=== PATIENT | male | born 1940 | race Caucasian/White ===

== ENCOUNTER 2017-06-09 16:54 | Inpatient (IN) | payer MEDICARE, BC ==
[2017-06-09] MEDS ORDERED: Sodium Chloride 0.9% 10 ML Syringe FLUSH PRN (17:12)
[2017-06-09] MEDS ORDERED: Albuterol/Ipratropium 3.0-0.5 MG/3 ML Neb Soln NEB ONE ×2 (17:13→18:19)
[2017-06-09] MEDS ORDERED: methylPREDNISolone Sodium Succinate 125 MG/2 ML SDV IVPUSH ONE (17:14)
--- NOTE | 2017-06-09 17:34 | EDM.PDOC ---
ED HPI GENERAL MEDICAL PROBLEM - General Chief Complaint: Chest Pain Stated Complaint: CHEST PAIN Time Seen by Provider: 06/09/17 16:57 Source of Information: Reports: Patient History Limitations: Reports: No Limitations - History of Present Illness INITIAL COMMENTS - FREE TEXT/NARRATIVE: The patient presents with left chest pain and shortness of breath. This started yesterday. Today it is worse. He described the pain as tightness. He also has a cough for 1 week. He has been coughing up yellow sputum. He has no measurable fever but he has chills. He denies nausea, abdominal pain or vomiting. He has a history of COPD. He does not smoke any more. He has had pneumonia before but that was 1 week ago. Onset: Gradual Duration: Day(s): (2) Location: Reports: Chest Quality: Reports: Other (Tightness) Severity: Moderate Improves with: Reports: None Worsens with: Reports: None Associated Symptoms: Reports: Chest Pain, Shortness of Breath. Denies: Fever/ Chills, Nausea/Vomiting Left Chest Pain Score (Numeric/FACES): 7 - Related Data Allergies Allergy/AdvReac Type Severity Reaction Status Date / Time No Known Allergies Allergy Verified 06/09/17 17:05 Home Meds: Home Meds Albuterol [Proventil Neb Soln] 2.5 mg NEB Q6HR PRN 01/27/16 [History] Albuterol/Ipratropium [DuoNeb 3.0-0.5 MG/3 ML] 2.5 mg NEB Q6HR PRN 01/27/16 [ History] Aspirin [Ecotrin] 325 mg PO QPM 01/27/16 [History] Fluticasone/Salmeterol [Advair Diskus 500-50] 1 puff INH BID 01/27/16 [History] Furosemide [Lasix] 40 mg PO DAILY 01/27/16 [History] Gabapentin [Neurontin] 300 mg PO BID 01/27/16 [History] Losartan [Cozaar] 50 mg PO DAILY 01/27/16 [History] Metoprolol Succinate [Toprol XL] 100 mg PO QPM 01/27/16 [History] Multivit-Min/FA/Lycopene/Lut [Centrum Silver Ultra Men's] 1 tab PO DAILY [History] Pravastatin [Pravachol] 40 mg PO DAILY 01/27/16 [History] Psyllium Husk [Metamucil] 1 cap PO BID 01/27/16 [History] Tamsulosin [Flomax] 0.4 mg PO QPM 01/27/16 [History] Tiotropium [Spiriva HandiHaler] 18 mcg INH DAILY 01/27/16 [History] metFORMIN [Glucophage] 1,000 mg PO BID 01/27/16 [History] Past Medical History Cardiovascular History: Reports: CAD, Heart Valve Replacement, High Cholesterol , Hypertension Respiratory History: Reports: COPD, Sleep Apnea Gastrointestinal History: Reports: Other (See Below) Genitourinary History: Reports: BPH, Chronic Renal Insuffiency Musculoskeletal History: Reports: Osteoarthritis Neurological History: Reports: Neuropathy, Peripheral Endocrine/Metabolic History: Reports: Diabetes, Type II, Obesity/BMI 30+ - Past Surgical History HEENT Surgical History: Reports: Cataract Surgery, Eye Surgery Cardiovascular Surgical History: Reports: Carotid Endarterectomy, Valve Replacement Neurological Surgical History: Reports: Lumbar Spine Other Neurological Surgeries/Procedures: Lumbar spine surgery x 3 including spinal fusion 15+ years ago. Musculoskeletal Surgical History: Reports: Knee Replacement Other Musculoskeletal Surgeries/Procedures:: B TKA Social & Family History - Tobacco Use Smoking Status *Q: Never Smoker Years of Tobacco use: 10 Packs/Tins Daily: 2 Used Tobacco, but Quit: Yes Month Tobacco Last Used: Around 1960 - Caffeine Use Caffeine Use: Reports: None - Recreational Drug Use Recreational Drug Use: No - Living Situation & Occupation Living situation: Reports: , with Spouse Occupation: Retired ED ROS GENERAL - Review of Systems Review Of Systems: See Below Constitutional: Reports: No Symptoms HEENT: Reports: No Symptoms Respiratory: Reports: Shortness of Breath, Cough Cardiovascular: Reports: Chest Pain Endocrine: Reports: No Symptoms GI/Abdominal: Reports: No Symptoms : Reports: No Symptoms Musculoskeletal: Reports: No Symptoms Skin: Reports: No Symptoms ED EXAM, GENERAL - Physical Exam Exam: See Below Exam Limited By: No Limitations General Appearance: Alert, No Apparent Distress Ears: Normal External Exam Nose: Normal Inspection Head: Atraumatic, Normocephalic Neck: Normal Inspection Respiratory/Chest: No Respiratory Distress, Decreased Breath Sounds, Wheezing ( Mild) Cardiovascular: Regular Rate, Rhythm, No Edema, No Murmur GI/Abdominal: Soft, Non-Tender, No Organomegaly, No Mass Extremities: Normal Inspection Neurological: Alert, Oriented, No Motor/Sensory Deficits EKG INTERPRETATION EKG Date: 06/09/17 Time: 17:03 Rhythm: NSR Rate (Beats/Min): 90 [place]: Normal P-Wave: Present QRS: Normal ST-T: Normal QT: Normal EKG Interpretation Comments: Multifocal PVCs Course - Vital Signs Last Recorded V/S: Last Vital Signs Temp 98.0 F 06/09/17 17:02 Pulse 94 06/09/17 17:02 Resp 16 06/09/17 17:02 BP 175/91 H 06/09/17 17:02 Pulse Ox 95 06/09/17 18:24 - Orders/Labs/Meds Orders: Active Orders 24 hr Category Date Time Status Cardiac Monitoring [RC] . DIRECTED Care 06/09/17 17:12 Active EKG Documentation Completion [RC] STAT Care 06/09/17 17:12 Active Oxygen Therapy [RC] PRN Care 06/09/17 17:12 Active Peripheral IV Care [RC] . DIRECTED Care 06/09/17 17:13 Active RT Aerosol Therapy [RC] ASDIRECTED Care 06/09/17 17:13 Active RT Aerosol Therapy [RC] ASDIRECTED Care 06/09/17 18:19 Active Chest 2V [CR] Stat Exams 06/09/17 17:13 Taken CULTURE BLOOD [BC] Stat Lab 06/09/17 18:44 Ordered CULTURE BLOOD [BC] Stat Lab 06/09/17 18:44 Ordered INFLUENZA A+B AG SCREEN [RM] Stat Lab 06/09/17 18:47 Uncollected Levofloxacin/Dextrose 5%-Water [Levaquin in D5W 750 MG/ Med 06/09/17 18:44 Active 150 ML] 750 mg Premix Bag 1 bag IV ONETIME Sodium Chloride 0.9% [Saline Flush] Med 06/09/17 17:12 Active 10 ml FLUSH ASDIRECTED PRN Blood Culture x2 Reflex Set [OM.PC] Stat Oth 06/09/17 18:44 Ordered Peripheral IV Insertion Adult [OM.PC] Stat Oth 06/09/17 17:12 Ordered Medication Orders Levofloxacin/Dextrose 750 mg/ (Premix) 150 mls @ 100 mls/hr IV ONETIME ONE Stop: 06/09/17 20:13 Sodium Chloride (Saline Flush) 10 ml FLUSH ASDIRECTED PRN PRN Reason: Keep Vein Open Last Admin: 06/09/17 17:35 Dose: 10 ml Labs: Laboratory Tests 06/09/17 06/09/17 Range/Units 17:02 17:02 WBC 13.89 H (4.23-9.07) K/mm3 RBC 4.00 L (4.63-6.08) M/mm3 Hgb 12.3 L (13.7-17.5) gm/L Hct 36.9 L (40.1-51.0) % MCV 92.3 H (79.0-92.2) fl MCH 30.8 (25.7-32.2) pg MCHC 33.3 (32.2-35.5) g/dl RDW Std Deviation 47.5 H (35.1-43.9) fL Plt Count 349 H (163-337) K/mm3 MPV 9.2 L (9.4-12.3) fl Neut % (Auto) 72.8 H (34.0-67.9) % Lymph % (Auto) 13.5 L (21.8-53.1) % [place] % (Auto) 8.7 (5.3-12.2) % Eos % (Auto) 4.2 (0.8-7.0) Baso % (Auto) 0.3 (0.1-1.2) % Neut # (Auto) 10.11 H (1.78-5.38) K/mm3 Lymph # (Auto) 1.88 (1.32-3.57) K/mm3 [place] # (Auto) 1.21 H (0.30-0.82) K/mm3 Eos # (Auto) 0.58 H (0.04-0.54) K/mm3 Baso # (Auto) 0.04 (0.01-0.08) K/mm3 Sodium 139 (136-145) mEq/L Potassium 3.7 (3.5-5.1) mEq/L Chloride 101 (98-107) mEq/L Carbon Dioxide 30 (21-32) mEq/L Anion Gap 11.7 (5-15) BUN 14 (7-18) mg/dL Creatinine 1.0 (0.7-1.3) mg/dL Est Cr Clr Drug Dosing 59.67 mL/min Estimated GFR (MDRD) > 60 (>60) mL/min BUN/Creatinine Ratio 14.0 (14-18) Glucose 161 H (83-115) mg/dL Calcium 9.1 (8.5-10.1) mg/dL Total Bilirubin 0.3 (0.2-1.0) mg/dL AST 16 (15-37) U/L ALT 22 (16-63) U/L Alkaline Phosphatase 64 (46-116) U/L Troponin I < 0.017 (0.00-0.056) ng/mL Total Protein 7.2 (6.4-8.2) g/dl Albumin 3.0 L (3.4-5.0) g/dl Globulin 4.2 gm/dL Albumin/Globulin Ratio 0.7 L (1-2) Meds: Medications Generic Name Dose Route Start Last Admin Trade Name Freq PRN Reason Stop Dose Admin Levofloxacin/Dextrose 750 mg/ 150 mls @ 100 mls/hr 06/09/17 18:44 Premix IV 06/09/17 20:13 ONETIME ONE Sodium Chloride 10 ml 06/09/17 17:12 06/09/17 17:35 Saline Flush FLUSH 10 ml ASDIRECTED PRN Administration Keep Vein Open Discontinued Medications Generic Name Dose Route Start Last Admin Trade Name Freq PRN Reason Stop Dose Admin Albuterol/Ipratropium 3 ml 06/09/17 17:13 06/09/17 17:37 Duoneb 3.0-0.5 Mg/3 Ml NEB 06/09/17 17:14 3 ml ONETIME ONE Administration Albuterol/Ipratropium 3 ml 06/09/17 18:19 06/09/17 18:24 Duoneb 3.0-0.5 Mg/3 Ml NEB 06/09/17 18:20 3 ml ONETIME ONE Administration Methylprednisolone Sodium Succinate 125 mg 06/09/17 17:14 06/09/17 17:33 Solu-Medrol IVPUSH 06/09/17 17:15 125 mg ONETIME ONE Administration - Re-Assessments/Exams Free Text/Narrative Re-Assessment/Exam: 06/09/17 17:39 I ordered an IV saline lock, oxygen PRN, EKG, CXR, labs, duoneb and solu-medrol 125mg IV. 06/09/17 19:01 I ordered an EKG that shows a NSR with a PVC and no acute changes. His CXR shows COPD changes but no infiltrate. His WBC is elevated at 13.89. His Hgb is 12.3. His CMP is negative. His troponin is negative. His oxygen saturations dropped to 87%. I ordered oxygen and another duoneb. His oxygen came up nicely. I took the oxygen off and his oxygen saturations went down again to 88%. I put the oxygen on and ordered blood cultures and levaquin 750mg IV. Departure - Departure Time of Disposition: 19:10 Disposition: Admitted As Inpatient 68 Condition: Fair Clinical Impression: Hypoxia, COPD exacerbation Pneumonia Qualifiers: Pneumonia type: due to unspecified organism Laterality: unspecified laterality Lung location: unspecified part of lung Qualified Code(s): J18.9 - Pneumonia, unspecified organism Referrals: PCP,None [Primary Care Provider] - Forms: ED Department Discharge - My Orders Last 24 Hours: My Active Orders 06/09/17 17:12 Cardiac Monitoring [RC] . DIRECTED EKG Documentation Completion [RC] STAT Oxygen Therapy [RC] PRN Sodium Chloride 0.9% [Saline Flush] 10 ml FLUSH ASDIRECTED PRN Peripheral IV Insertion Adult [OM.PC] Stat 06/09/17 17:13 Peripheral IV Care [RC] . DIRECTED RT Aerosol Therapy [RC] ASDIRECTED Chest 2V [CR] Stat 06/09/17 18:19 RT Aerosol Therapy [RC] ASDIRECTED 06/09/17 18:44 CULTURE BLOOD [BC] Stat CULTURE BLOOD [BC] Stat Levofloxacin/Dextrose 5%-Water [Levaquin in D5W 750 MG/150 ML] 750 mg Premix Bag 1 bag IV ONETIME Blood Culture x2 Reflex Set [OM.PC] Stat 06/09/17 18:47 INFLUENZA A+B AG SCREEN [RM] Stat - Assessment/Plan Last 24 Hours: My Active Orders 06/09/17 17:12 Cardiac Monitoring [RC] . DIRECTED EKG Documentation Completion [RC] STAT Oxygen Therapy [RC] PRN Sodium Chloride 0.9% [Saline Flush] 10 ml FLUSH ASDIRECTED PRN Peripheral IV Insertion Adult [OM.PC] Stat 06/09/17 17:13 Peripheral IV Care [RC] . DIRECTED RT Aerosol Therapy [RC] ASDIRECTED Chest 2V [CR] Stat 06/09/17 18:19 RT Aerosol Therapy [RC] ASDIRECTED 06/09/17 18:44 CULTURE BLOOD [BC] Stat CULTURE BLOOD [BC] Stat Levofloxacin/Dextrose 5%-Water [Levaquin in D5W 750 MG/150 ML] 750 mg Premix Bag 1 bag IV ONETIME Blood Culture x2 Reflex Set [OM.PC] Stat 06/09/17 18:47 INFLUENZA A+B AG SCREEN [RM] Stat
[2017-06-09] MEDS ORDERED: Levofloxacin/Dextrose 5%-Water 750 MG in Premix Bag 1 BAG IV ONE (18:44)
--- NOTE | 2017-06-09 19:41 | PCM.HP ---
H&P History of Present Illness - General Date of Service: 06/09/17 Source of Information: Patient, Provider History Limitations: Reports: No Limitations - History of Present Illness Onset of Symptoms: Reports: Gradual Symptom Onset Date: 06/07/17 Duration of Symptoms: Reports: Day(s):, Getting Worse Location: Reports: Chest Quality: Reports: Same as Previous Episode Severity: Moderate Improves with: Reports: Medication Worsens with: Reports: None Associated Symptoms: Reports: cough w sputum, Fever/Chills, Shortness of Breath Left Chest Pain Score (Numeric/FACES): 7 Neck Pain Score (Numeric/FACES): 5 - Related Data Allergies/Adverse Reactions: Allergies Allergy/AdvReac Type Severity Reaction Status Date / Time No Known Allergies Allergy Verified 06/09/17 19:44 Home Medications: Home Meds Albuterol [Proventil Neb Soln] 2.5 mg NEB Q6HR PRN 01/27/16 [History] Albuterol/Ipratropium [DuoNeb 3.0-0.5 MG/3 ML] 2.5 mg NEB Q6HR PRN 01/27/16 [ History] Aspirin [Ecotrin] 325 mg PO QPM 01/27/16 [History] Fluticasone/Salmeterol [Advair Diskus 500-50] 1 puff INH BID 01/27/16 [History] Furosemide [Lasix] 40 mg PO DAILY 01/27/16 [History] Gabapentin [Neurontin] 300 mg PO BID 01/27/16 [History] Losartan [Cozaar] 50 mg PO DAILY 01/27/16 [History] Metoprolol Succinate [Toprol XL] 100 mg PO QPM 01/27/16 [History] Multivit-Min/FA/Lycopene/Lut [Centrum Silver Ultra Men's] 1 tab PO DAILY [History] Pravastatin [Pravachol] 40 mg PO DAILY 01/27/16 [History] Psyllium Husk [Metamucil] 1 cap PO BID 01/27/16 [History] Tamsulosin [Flomax] 0.4 mg PO QPM 01/27/16 [History] Tiotropium [Spiriva HandiHaler] 18 mcg INH DAILY 01/27/16 [History] metFORMIN [Glucophage] 1,000 mg PO BID 01/27/16 [History] Levofloxacin [Levaquin] 750 mg PO DAILY 8 Days #8 tablet 06/11/17 [Rx] predniSONE See Taper PO .TAPER #20 tablet 06/11/17 [Rx] Past Medical History Cardiovascular History: Reports: CAD, Heart Valve Replacement, High Cholesterol , Hypertension Respiratory History: Reports: COPD, Sleep Apnea Gastrointestinal History: Reports: Other (See Below) Genitourinary History: Reports: BPH, Chronic Renal Insuffiency Musculoskeletal History: Reports: Osteoarthritis Neurological History: Reports: Neuropathy, Peripheral Endocrine/Metabolic History: Reports: Diabetes, Type II, Obesity/BMI 30+ - Past Surgical History HEENT Surgical History: Reports: Cataract Surgery, Eye Surgery Cardiovascular Surgical History: Reports: Carotid Endarterectomy, Valve Replacement Neurological Surgical History: Reports: Lumbar Spine Other Neurological Surgeries/Procedures: Lumbar spine surgery x 3 including spinal fusion 15+ years ago. Musculoskeletal Surgical History: Reports: Knee Replacement Other Musculoskeletal Surgeries/Procedures:: B TKA Social & Family History - Tobacco Use Smoking Status *Q: Never Smoker Years of Tobacco use: 10 Packs/Tins Daily: 2 Used Tobacco, but Quit: Yes Month Tobacco Last Used: Around 1959 - Caffeine Use Caffeine Use: Reports: None - Recreational Drug Use Recreational Drug Use: No - Living Situation & Occupation Living situation: Reports: , with Spouse Occupation: Retired H&P Review of Systems - Review of Systems: Review Of Systems: See Below General: Reports: Fever, Weakness, Fatigue HEENT: Reports: No Symptoms Pulmonary: Reports: Pleuritic Chest Pain, Cough, Sputum Cardiovascular: Reports: No Symptoms Gastrointestinal: Reports: No Symptoms Genitourinary: Reports: No Symptoms Musculoskeletal: Reports: No Symptoms Skin: Reports: No Symptoms Psychiatric: Reports: No Symptoms Neurological: Reports: No Symptoms Hematologic/Lymphatic: Reports: No Symptoms Immunologic: Reports: No Symptoms Exam - Exam Exam: See Below - Vital Signs Vital Signs: Last Vital Signs Temp 36.7 C 06/09/17 17:02 Pulse 94 06/09/17 17:02 Resp 16 06/09/17 17:02 BP 175/91 H 06/09/17 17:02 Pulse Ox 95 06/09/17 18:24 Weight: 103.419 kg - Exam Quality Assessment: DVT Prophylaxis General: Alert, Oriented, Cooperative HEENT: Conjunctiva Clear, Nares Patent, Normal Nasal Septum, Pupils Equal, Pupils Reactive, PERRLA Neck: Supple, Trachea Midline Lungs: Normal Respiratory Effort, Decreased Breath Sounds, Wheezing Cardiovascular: Regular Rate, Tachycardia GI/Abdominal Exam: Normal Bowel Sounds, Soft, Non-Tender, No Organomegaly, No Distention (Male) Exam: Deferred Rectal (Males) Exam: Deferred Back Exam: Normal Inspection Extremities: Normal Inspection Skin: Warm Neurological: Cranial Nerves Intact, Normal Speech Neuro Extensive - Mental Status: Alert, Oriented x3 Neuro Extensive - Motor, Sensory, Reflexes: CN II-XII Intact Psychiatric: Alert, Normal Affect, Normal Mood - Patient Data Result Diagrams: 06/11/17 05:45 06/11/17 05:45 *Q Meaningful Use (ADM) - VTE *Q VTE Criteria *Q: - Stroke *Q Stroke Criteria *Q: - AMI *Q AMI Criteria *Q: - Problem List (1) COPD exacerbation SNOMED Code(s): 711166370605593 ICD Code: J44.1 - CHRONIC OBSTRUCTIVE PULMONARY DISEASE W (ACUTE) EXACERBATION Status: Acute Priority: High (2) Pneumonia SNOMED Code(s): 296349847 ICD Code: J18.9 - PNEUMONIA, UNSPECIFIED ORGANISM Status: Acute Priority : Medium Qualifiers: Pneumonia type: due to unspecified organism Laterality: unspecified laterality Lung location: unspecified part of lung Qualified Code(s): J18.9 - Pneumonia, unspecified organism (3) Venous insufficiency of both lower extremities SNOMED Code(s): 337547630 ICD Code: I87.2 - VENOUS INSUFFICIENCY (CHRONIC) (PERIPHERAL) Status: Acute (4) Hypoxia SNOMED Code(s): 594356561 ICD Code: R09.02 - HYPOXEMIA Status: Resolved Priority: High Problem List Initiated/Reviewed/Updated: Yes Orders Last 24hrs: Medication Orders Levofloxacin/Dextrose 750 mg/ (Premix) 150 mls @ 100 mls/hr IV ONETIME ONE Stop: 06/09/17 20:13 Last Admin: 06/09/17 19:14 Dose: 100 mls/hr Sodium Chloride (Saline Flush) 10 ml FLUSH ASDIRECTED PRN PRN Reason: Keep Vein Open Last Admin: 06/09/17 17:35 Dose: 10 ml Assessment/Plan Comment:: Impression: COPD exacerbation, hypoxia URI with productive cough of yellow sputum Chronic MAYR CAD Valvular Heart Disease HLD HTN Diabetes mellitus type 2 CKD Obesity PVD/SAULO Plan: IV steroids Continue Levoquin Nebs Home meds Daily labs Complete infectious work up DVT/GI prophylaxis
[2017-06-09] MEDS ORDERED: 50% Dextrose in Water 50 ML Syringe IVPUSH PRN (19:48)
[2017-06-09] MEDS ORDERED: Albuterol 0.083% 2.5 MG/3 ML Neb Soln NEB PRN (19:54)
[2017-06-09] MEDS ORDERED: Acetaminophen Soln 650 MG/20.3 ML UD Cup PO PRN (19:54)
[2017-06-09] MEDS ORDERED: Sodium Chloride 0.45% 1,000 ML IV SCH (20:30)
[2017-06-09] MEDS ORDERED: hydrALAZINE 20 MG/ML SDV IVPUSH PRN (20:37)
[2017-06-09] MEDS ORDERED: PSYLLIUM HUSK PO SCH (21:00)
[2017-06-09] MEDS: Tiotropium Inhaler 18 MCG Inhalation Powder Cap Kit of 5 INH SCH (21:02)
[2017-06-09] MEDS: Gabapentin 300 MG Cap PO SCH (21:55)
[2017-06-09] MEDS: metFORMIN 500 MG Tab PO SCH (21:55)
[2017-06-09] MEDS: Losartan 25 MG Tab PO SCH (21:55)
[2017-06-09] MEDS: Famotidine 20 MG Tab PO SCH (21:56)
[2017-06-09] MEDS: Insulin Aspart 100 Units/ML 3 ML Pen SUBCUT SCH (22:18)
[2017-06-10] MEDS: methylPREDNISolone Sodium Succinate 125 MG/2 ML SDV IVPUSH SCH ×4 (00:51→17:11)
[2017-06-10] MEDS: Acetaminophen 325 MG Tab PO PRN ×2 (02:15→09:30)
[2017-06-10] MEDS: metFORMIN 500 MG Tab PO SCH ×2 (06:30→16:42)
[2017-06-10] MEDS: Albuterol/Ipratropium 3.0-0.5 MG/3 ML Neb Soln NEB PRN ×2 (06:55→13:36)
[2017-06-10] MEDS: Tiotropium Inhaler 18 MCG Inhalation Powder Cap Kit of 5 INH SCH ×2 (06:55→09:38)
[2017-06-10] MEDS: Insulin Aspart 100 Units/ML 3 ML Pen SUBCUT SCH ×4 (09:19→21:37)
[2017-06-10] MEDS: Psyllium Husk Powder Sugar Free 3.4 GM Packet PO SCH ×2 (09:20→21:37)
[2017-06-10] MEDS: Furosemide 40 MG Tab PO SCH (09:20)
[2017-06-10] MEDS: Gabapentin 300 MG Cap PO SCH ×2 (09:20→21:36)
[2017-06-10] MEDS: Losartan 25 MG Tab PO SCH ×2 (09:20→21:35)
[2017-06-10] MEDS: Enoxaparin 40 MG/0.4 ML Syringe SUBCUT SCH (09:21)
--- NOTE | 2017-06-10 09:50 | CR ---
Chest: Two views of the chest were obtained. Comparison: Prior chest x-ray of 01/27/16. Heart size and mediastinum are normal. Mild chronic pulmonary vascular congestion is seen. These findings are fairly stable from prior exam. Lungs otherwise are clear. Bony structures are unremarkable for the patient's age. Previous sternotomy and prosthetic heart valve is seen. Impression: 1. Increased central lung markings most likely representing mild chronic pulmonary vascular congestion. 2. Previous heart valve replacement. 3. Nothing acute is otherwise seen. Diagnostic code #3
[2017-06-10] MEDS ORDERED: Formoterol/Mometasone 200-5 MCG 8.8 GM Inhaler IH SCH (10:15)
[2017-06-10] MEDS: Non-Formulary Medication 1 Each (Fluticasone/Salmeterol 1 PUFF) INH SCH (11:07)
[2017-06-10] MEDS: Levofloxacin/Dextrose 5%-Water 750 MG in Premix Bag 1 BAG IV SCH (13:36)
[2017-06-10] MEDS ORDERED: Aspirin 325 MG Tab.EC PO SCH (18:00)
[2017-06-10] MEDS ORDERED: Metoprolol Succinate 50 MG Tab.ER PO SCH (18:00)
[2017-06-10] MEDS ORDERED: Tamsulosin 0.4 MG Cap.ER PO SCH (18:00)
--- NOTE | 2017-06-10 20:28 | PCM.PN ---
- General Info Date of Service: 06/10/17 Functional Status: Reports: Tolerating Diet, Ambulating, Urinating - Review of Systems General: Reports: No Symptoms HEENT: Reports: No Symptoms Pulmonary: Reports: Shortness of Breath Cardiovascular: Reports: No Symptoms Gastrointestinal: Reports: No Symptoms Genitourinary: Reports: No Symptoms Musculoskeletal: Reports: No Symptoms Skin: Reports: No Symptoms Neurological: Reports: No Symptoms Psychiatric: Reports: No Symptoms - Patient Data Vitals - Most Recent: Last Vital Signs Temp 36.8 C 06/10/17 15:55 Pulse 99 06/10/17 17:13 Resp 19 06/10/17 15:55 BP 149/71 H 06/10/17 17:13 Pulse Ox 91 L 06/10/17 15:55 Weight - Most Recent: 105.732 kg I&O - Last 24 Hours: Intake & Output 06/10/17 06/10/17 06/10/17 06:59 14:59 22:59 Intake Total 1550 300 890 Output Total 1450 Balance 1550 300 -560 Lab Results Last 24 Hours: Laboratory Results - last 24 hr 06/09/17 06/10/17 06/10/17 Range/Units 21:39 05:40 05:40 WBC (4.23-9.07) K/mm3 RBC (4.63-6.08) M/mm3 Hgb (13.7-17.5) gm/L Hct (40.1-51.0) % MCV (79.0-92.2) fl MCH (25.7-32.2) pg MCHC (32.2-35.5) g/dl RDW Std Deviation (35.1-43.9) fL Plt Count (163-337) K/mm3 MPV (9.4-12.3) fl Neut % (Auto) (34.0-67.9) % Lymph % (Auto) (21.8-53.1) % [place] % (Auto) (5.3-12.2) % Eos % (Auto) (0.8-7.0) Baso % (Auto) (0.1-1.2) % Neut # (Auto) (1.78-5.38) K/mm3 Lymph # (Auto) (1.32-3.57) K/mm3 [place] # (Auto) (0.30-0.82) K/mm3 Eos # (Auto) (0.04-0.54) K/mm3 Baso # (Auto) (0.01-0.08) K/mm3 Manual Slide Review Sodium 136 (136-145) mEq/L Potassium 4.4 (3.5-5.1) mEq/L Chloride 99 (98-107) mEq/L Carbon Dioxide 27 (21-32) mEq/L Anion Gap 14.4 (5-15) BUN 18 (7-18) mg/dL Creatinine 1.0 (0.7-1.3) mg/dL Est Cr Clr Drug Dosing 59.67 mL/min Estimated GFR (MDRD) > 60 (>60) mL/min BUN/Creatinine Ratio 18.0 (14-18) Glucose 210 H (83-115) mg/dL POC Glucose 254 H (83-110) mg/dL Hemoglobin A1c 7.50 H (4.50-6.20) % Calcium 8.9 (8.5-10.1) mg/dL C-Reactive Protein 6.7 H* (<1.0) mg/dL Triglycerides 49 (<150) mg/dL Cholesterol 143 (<200) mg/dL LDL Cholesterol Direct 87 (<100) mg/dL HDL Cholesterol 48.0 (40-59) mg/dL Mycoplasma pneumon IgM Negative (NEGATIVE) 06/10/17 06/10/17 06/10/17 Range/Units 05:40 06:14 11:23 WBC 11.83 H (4.23-9.07) K/mm3 RBC 3.88 L (4.63-6.08) M/mm3 Hgb 11.9 L (13.7-17.5) gm/L Hct 35.9 L (40.1-51.0) % MCV 92.5 H (79.0-92.2) fl MCH 30.7 (25.7-32.2) pg MCHC 33.1 (32.2-35.5) g/dl RDW Std Deviation 46.6 H (35.1-43.9) fL Plt Count 319 (163-337) K/mm3 MPV 9.5 (9.4-12.3) fl Neut % (Auto) 91.5 H (34.0-67.9) % Lymph % (Auto) 6.4 L (21.8-53.1) % [place] % (Auto) 1.2 L (5.3-12.2) % Eos % (Auto) 0 L (0.8-7.0) Baso % (Auto) 0.1 (0.1-1.2) % Neut # (Auto) 10.83 H (1.78-5.38) K/mm3 Lymph # (Auto) 0.76 L (1.32-3.57) K/mm3 [place] # (Auto) 0.14 L (0.30-0.82) K/mm3 Eos # (Auto) 0.00 L (0.04-0.54) K/mm3 Baso # (Auto) 0.01 (0.01-0.08) K/mm3 Manual Slide Review Abnormal smear Sodium (136-145) mEq/L Potassium (3.5-5.1) mEq/L Chloride (98-107) mEq/L Carbon Dioxide (21-32) mEq/L Anion Gap (5-15) BUN (7-18) mg/dL Creatinine (0.7-1.3) mg/dL Est Cr Clr Drug Dosing mL/min Estimated GFR (MDRD) (>60) mL/min BUN/Creatinine Ratio (14-18) Glucose (83-115) mg/dL POC Glucose 205 H 235 H (83-110) mg/dL Hemoglobin A1c (4.50-6.20) % Calcium (8.5-10.1) mg/dL C-Reactive Protein (<1.0) mg/dL Triglycerides (<150) mg/dL Cholesterol (<200) mg/dL LDL Cholesterol Direct (<100) mg/dL HDL Cholesterol (40-59) mg/dL Mycoplasma pneumon IgM (NEGATIVE) Jermain Results Last 24 Hours: Microbiology 06/09/17 19:31 Aerobic Blood Culture - Preliminary Blood - Venous - Lab Draw NO GROWTH AFTER 1 DAY Anaerobic Blood Culture - Preliminary NO GROWTH AFTER 1 DAY 06/09/17 19:25 Aerobic Blood Culture - Preliminary Blood - Venous NO GROWTH AFTER 1 DAY Anaerobic Blood Culture - Preliminary NO GROWTH AFTER 1 DAY Med Orders - Current: Current Medications Acetaminophen (Tylenol) 650 mg PO Q4H PRN PRN Reason: Pain/Fever Last Admin: 06/10/17 09:30 Dose: 650 mg Albuterol (Proventil Neb Soln) 2.5 mg NEB Q4HRRT PRN PRN Reason: Shortness of Breath Albuterol/Ipratropium (Duoneb 3.0-0.5 Mg/3 Ml) 3 ml NEB QID PRN PRN Reason: Shortness of Breath Last Admin: 06/10/17 13:36 Dose: 3 ml Aspirin (Ecotrin) 325 mg PO QPM [facility] Last Admin: 06/10/17 17:13 Dose: 325 mg Dextrose/Water (Dextrose 50% In Water) 50 ml IVPUSH ASDIRECTED PRN PRN Reason: Hypoglycemia Enoxaparin Sodium (Lovenox) 40 mg SUBCUT DAILY [facility] Last Admin: 06/10/17 09:21 Dose: 40 mg Famotidine (Pepcid) 20 mg PO BEDTIME [facility] Last Admin: 06/09/17 21:56 Dose: 20 mg Furosemide (Lasix) 40 mg PO DAILY [facility] Last Admin: 06/10/17 09:20 Dose: 40 mg Gabapentin (Neurontin) 300 mg PO BID [facility] Last Admin: 06/10/17 09:20 Dose: 300 mg Hydralazine HCl (Apresoline) 20 mg IVPUSH Q6H PRN PRN Reason: Hypertension Last Admin: 06/10/17 06:37 Dose: 20 mg Levofloxacin/Dextrose 750 mg/ (Premix) 150 mls @ 100 mls/hr IV Q24H [facility] Last Admin: 06/10/17 13:36 Dose: 100 mls/hr Insulin Aspart (Novolog) 0 unit SUBCUT QIDACANDBED NEHAL PRN Reason: Protocol Last Admin: 06/10/17 17:12 Dose: 3 units Losartan Potassium (Cozaar) 25 mg PO BID [facility] Last Admin: 06/10/17 09:20 Dose: 25 mg Metformin HCl (Glucophage) 1,000 mg PO BIDMEALS [facility] Last Admin: 06/10/17 16:42 Dose: 1,000 mg Methylprednisolone Sodium Succinate (Solu-Medrol) 125 mg IVPUSH Q6H [facility] Last Admin: 06/10/17 17:11 Dose: 125 mg Metoprolol Succinate (Toprol Xl) 100 mg PO QPM [facility] Last Admin: 06/10/17 17:13 Dose: 100 mg Mometasone Furoate/Formoterol Fumar (Dulera 200-5 Mcg) 2 puff IH BID [facility] Psyllium Husk (Metamucil Sugar Free) 1 packet PO BID [facility] Last Admin: 06/10/17 09:20 Dose: 1 packet Simvastatin (Zocor) 20 mg PO BEDTIME [facility] Sodium Chloride (Saline Flush) 10 ml FLUSH ASDIRECTED PRN PRN Reason: Keep Vein Open Last Admin: 06/09/17 17:35 Dose: 10 ml Tamsulosin HCl (Flomax) 0.4 mg PO QPM [facility] Last Admin: 06/10/17 17:13 Dose: 0.4 mg Tiotropium [place] (Spiriva Handihaler) 18 mcg INH DAILY [facility] Last Admin: 06/10/17 09:38 Dose: Not Given Discontinued Medications Acetaminophen (Tylenol) 650 mg PO Q6H PRN PRN Reason: Fever Albuterol/Ipratropium (Duoneb 3.0-0.5 Mg/3 Ml) 3 ml NEB ONETIME ONE Stop: 06/09/17 17:14 Last Admin: 06/09/17 17:37 Dose: 3 ml Albuterol/Ipratropium (Duoneb 3.0-0.5 Mg/3 Ml) 3 ml NEB ONETIME ONE Stop: 06/09/17 18:20 Last Admin: 06/09/17 18:24 Dose: 3 ml Levofloxacin/Dextrose 750 mg/ (Premix) 150 mls @ 100 mls/hr IV ONETIME ONE Stop: 06/09/17 20:13 Last Admin: 06/09/17 19:14 Dose: 100 mls/hr Sodium Chloride (Sodium Chloride 0.45%) 1,000 mls @ 125 mls/hr IV ASDIRECTED [facility] Last Admin: 06/09/17 22:18 Dose: 125 mls/hr Methylprednisolone Sodium Succinate (Solu-Medrol) 125 mg IVPUSH ONETIME ONE Stop: 06/09/17 17:15 Last Admin: 06/09/17 17:33 Dose: 125 mg Mometasone Furoate/Formoterol Fumar (Dulera 200-5 Mcg) 2 puff IH BIDRT [facility] Last Admin: 06/10/17 11:44 Dose: Not Given Non-Formulary Medication (Fluticasone/Salmeterol) 1 puff INH BID [facility] Last Admin: 06/10/17 11:07 Dose: Not Given Non-Formulary Medication (Psyllium Husk) 1 cap PO BID [facility] - Exam Quality Assessment: Supplemental Oxygen, DVT Prophylaxis General: Alert, Oriented, Cooperative, No Acute Distress HEENT: Pupils Equal, Pupils Reactive, EOMI Neck: Supple, Trachea Midline, No JVD Lungs: Normal Respiratory Effort, Decreased Breath Sounds, Wheezing (no) Cardiovascular: Regular Rate, Regular Rhythm GI/Abdominal Exam: Normal Bowel Sounds, Soft, Non-Tender, No Organomegaly, No Distention (Male) Exam: Deferred Back Exam: Normal Inspection Extremities: Normal Inspection Skin: Warm Neurological: No New Focal Deficit, Normal Gait, Normal Speech Psy/Mental Status: Alert, Normal Affect, Normal Mood - Problem List Review Problem List Initiated/Reviewed/Updated: Yes - My Orders Last 24 Hours: My Active Orders 06/09/17 19:48 Blood Glucose Check, Bedside [RC] QIDACANDBED Dextrose 50% in Water 50 ml IVPUSH ASDIRECTED PRN 06/09/17 19:53 RT Aerosol Therapy [RC] ASDIRECTED Albuterol/Ipratropium [DuoNeb 3.0-0.5 MG/3 ML] 3 ml NEB QID PRN 06/09/17 19:54 Albuterol [Proventil Neb Soln] 2.5 mg NEB Q4HRRT PRN 06/09/17 19:57 Antiembolic Devices [RC] BID ZENIA Hose [Antiembolic Hose] [OM.PC] Routine 06/09/17 19:58 Consult to Occupational Therapy [OT Evaluation and Treatment] [CONS] Routine Consult to Physical Therapy [PT Evaluation and Treatment] [CONS] Routine Consult to Site Interpreter [CONS] Routine 06/09/17 20:00 metFORMIN [Glucophage] 1,000 mg PO BIDMEALS 06/09/17 20:37 hydrALAZINE [Apresoline] 20 mg IVPUSH Q6H PRN 06/09/17 21:00 Famotidine [Pepcid] 20 mg PO BEDTIME Gabapentin [Neurontin] 300 mg PO BID Losartan [Cozaar] 25 mg PO BID Tiotropium [Spiriva HandiHaler] 18 mcg INH DAILY 06/09/17 21:37 RESPIRATORY PANEL BY PCR [MREF] Routine 06/09/17 22:00 Insulin Aspart [NovoLOG] See Protocol SUBCUT QIDACANDBED 06/10/17 00:00 methylPREDNISolone Sod Succ [Solu-MEDROL] 125 mg IVPUSH Q6H 06/10/17 02:07 Acetaminophen [Tylenol] 650 mg PO Q4H PRN 06/10/17 02:23 K Pad [Heat Therapy] [OM.PC] Routine 06/10/17 09:00 Consult to Soda Room Operator [Consult to Diabetic Nurse Specialist] [CONS] Routine Enoxaparin [Lovenox] 40 mg SUBCUT DAILY Furosemide [Lasix] 40 mg PO DAILY Psyllium Husk/Aspartame [Metamucil Sugar Free] 1 packet PO BID 06/10/17 13:00 Levofloxacin/Dextrose 5%-Water [Levaquin in D5W 750 MG/150 ML] 750 mg Premix Bag 1 bag IV Q24H 06/10/17 18:00 Aspirin [Ecotrin] 325 mg PO QPM Metoprolol Succinate [Toprol XL] 100 mg PO QPM Tamsulosin [Flomax] 0.4 mg PO QPM 06/10/17 21:00 Simvastatin [Zocor] 20 mg PO BEDTIME 06/11/17 05:00 BMP [BASIC METABOLIC PANEL,BMP] [CHEM] DAILY CBC WITH AUTO DIFF [HEME] DAILY CRP [C-REACTIVE PROTEIN] [CHEM] DAILY 06/12/17 05:00 BMP [BASIC METABOLIC PANEL,BMP] [CHEM] DAILY CBC WITH AUTO DIFF [HEME] DAILY CRP [C-REACTIVE PROTEIN] [CHEM] DAILY 06/13/17 05:00 BMP [BASIC METABOLIC PANEL,BMP] [CHEM] DAILY CBC WITH AUTO DIFF [HEME] DAILY CRP [C-REACTIVE PROTEIN] [CHEM] DAILY 06/14/17 05:00 BMP [BASIC METABOLIC PANEL,BMP] [CHEM] DAILY CBC WITH AUTO DIFF [HEME] DAILY CRP [C-REACTIVE PROTEIN] [CHEM] DAILY - Plan Plan:: Impression: COPD exacerbation, hypoxia URI with productive cough of yellow sputum Chronic MARY CAD Valvular Heart Disease HLD HTN Diabetes mellitus type 2 CKD Obesity PVD/SAULO Plan: IV steroids, taper as tolerated Taper off O2 Continue Levoquin Nebs Home meds Daily labs Complete infectious work up DVT/GI prophylaxis
[2017-06-10] MEDS: Formoterol/Mometasone 200-5 MCG 8.8 GM Inhaler IH SCH (20:37)
[2017-06-10] MEDS ORDERED: Simvastatin 20 MG Tab PO SCH (21:00)
[2017-06-10] MEDS ORDERED: traZODone 50 MG Tab PO PRN (21:17)
[2017-06-10] MEDS: Famotidine 20 MG Tab PO SCH (21:36)
[2017-06-11] MEDS: methylPREDNISolone Sodium Succinate 125 MG/2 ML SDV IVPUSH SCH ×3 (00:52→12:24)
[2017-06-11] MEDS: Acetaminophen 325 MG Tab PO PRN (00:52)
[2017-06-11] MEDS: metFORMIN 500 MG Tab PO SCH (06:55)
--- NOTE | 2017-06-11 07:21 | PCM.DCSUM1 ---
Discharge Summary - Hospital Course Free Text/Narrative:: Dat Rosado is a 77 yo male who presented to our ED on 06/09/17 with left chest pain and shortness of breath. He reportedly started the day before and has been worsening. Described as a tightness. Also reports cough for past one week. Has been coughing up yellow sputum. Has been afebrile but has had chills. Denies nausea, abdominal pain, vomiting. Has history of COPD. Is a former smoker. Had pneumonia 1 week prior. 12-lead EKG was obtained showing a normal sinus rhythm at a rate of 90. Multifocal PVCs were noted per the ED report. Temp is 98.0. Pulse 94. Respirations 16. Blood pressure elevated at 175/91. Pulse ox 95%. Chest x- ray was obtained. This is interpreted by Dr. Guzmán, radiologist, as 1. Increased central lung markings most likely representing mild chronic ulnar vascular congestion. 2. Previous heart valve replacement. 3. Nothing acute is otherwise seen. Labs were obtained: The BC was elevated at 13.9. Hemoglobin was low at 12.3. Hematocrit low at 36.9. He was very slightly macrocytic. Platelet count was elevated at 349,000. Neutrophils were elevated at 72.8%. Electrolytes were essentially unremarkable. Creatinine 1.0. GFR greater than 60. Glucose was elevated at 161. Liver enzymes were good with AST at 16, ALT at 22, alkaline phosphatase at 67. Troponin was negative at less than 0.017. Albumin was low at 3.0. Levaquin 750 mg was given. DuoNeb and Solu-Medrol 125 mg IV were also given. He was attempted to be weaned off oxygen however his sats dropped to 87%. His subsequent admitted to the medical floor. He is a full code. - Discharge Data Discharge Date: 06/11/17 (Admit date: 06/09/17) Discharge Disposition: Home, Self-Care 01 Condition: Good - Discharge Diagnosis/Problem(s) (1) COPD exacerbation SNOMED Code(s): 936703182541967 ICD Code: J44.1 - CHRONIC OBSTRUCTIVE PULMONARY DISEASE W (ACUTE) EXACERBATION Status: Acute Priority: High Current Visit: Yes (2) Hypoxia SNOMED Code(s): 241249748 ICD Code: R09.02 - HYPOXEMIA Status: Resolved Priority: High Current Visit: Yes (3) Pneumonia SNOMED Code(s): 338728239 ICD Code: J18.9 - PNEUMONIA, UNSPECIFIED ORGANISM Status: Acute Priority : Medium Current Visit: Yes Qualifiers: Pneumonia type: due to unspecified organism Laterality: unspecified laterality Lung location: unspecified part of lung Qualified Code(s): J18.9 - Pneumonia, unspecified organism - Patient Summary/Data Consults: Consultations 06/09/17 19:58 Consult to Occupational Therapy [OT Evaluation and Treatment] [CONS] Routine Consult to Physical Therapy [PT Evaluation and Treatment] [CONS] Routine Consult to Gas Singer [CONS] Routine 06/10/17 09:00 Consult to Top Frame Maker [Consult to Diabetic Nurse Specialist] [CONS] Routine Hospital Course: Hospital course relatively uneventful. Levaquin was continued, as well as methylprednisone. Lipid panel looked excellent. A1c was only slightly elevated. CRP trended downward and mycoplasma pneumonia and was negative. His white count did increase however, this is likely due to steroid administration. Blood sugars were slightly elevated as well, and this is also likely the result of steroids. He is doing much better today. He was weaned off of O2. He is eating, urinating, and ambulating. He will be discharged home today. He normally see [facility] in [place] for Cardiology and Pulmonary. We discussed establishing a PCP here in town at [place]. Case Management was able to establish an appointment with Dr. Nick. He is to follow-up and establish with a Dr. Nick at his established appointment. He will be discharged home today on PO leviquin and a steroid taper. His usual home medications were continued. - Patient Instructions Diet: Diabetic Diet Activity: As Tolerated Driving: Do Not Drive (today) Showering/Bathing: May Shower Notify Provider of: Fever, Increased Pain, Nausea and/or Vomiting (chest pain, worsening shortness of breath ) - Discharge Plan Prescriptions/Med Rec: Levofloxacin [Levaquin] 750 mg PO DAILY 8 Days #8 tablet predniSONE See Taper PO .TAPER #20 tablet Home Medications: Home Meds Albuterol [Proventil Neb Soln] 2.5 mg NEB Q6HR PRN 01/27/16 [History] Albuterol/Ipratropium [DuoNeb 3.0-0.5 MG/3 ML] 2.5 mg NEB Q6HR PRN 01/27/16 [ History] Aspirin [Ecotrin] 325 mg PO QPM 01/27/16 [History] Fluticasone/Salmeterol [Advair Diskus 500-50] 1 puff INH BID 01/27/16 [History] Furosemide [Lasix] 40 mg PO DAILY 01/27/16 [History] Gabapentin [Neurontin] 300 mg PO BID 01/27/16 [History] Losartan [Cozaar] 50 mg PO DAILY 01/27/16 [History] Metoprolol Succinate [Toprol XL] 100 mg PO QPM 01/27/16 [History] Multivit-Min/FA/Lycopene/Lut [Centrum Silver Ultra Men's] 1 tab PO DAILY [History] Pravastatin [Pravachol] 40 mg PO DAILY 01/27/16 [History] Psyllium Husk [Metamucil] 1 cap PO BID 01/27/16 [History] Tamsulosin [Flomax] 0.4 mg PO QPM 01/27/16 [History] Tiotropium [Spiriva HandiHaler] 18 mcg INH DAILY 01/27/16 [History] metFORMIN [Glucophage] 1,000 mg PO BID 01/27/16 [History] Levofloxacin [Levaquin] 750 mg PO DAILY 8 Days #8 tablet 06/11/17 [Rx] predniSONE See Taper PO .TAPER #20 tablet 06/11/17 [Rx] Patient Handouts: Coronary Artery Disease, Male, Chronic Obstructive Pulmonary Disease Exacerbation, Soky-ox-[place]ur, Type 2 Diabetes Mellitus, Adult, Hypoxemia, Aspirin, ASA oral tablets Forms: ED Department Discharge Referrals: Rupert Hoover DO [Ordering Only Provider] - (keep previously scheduled appointment) Andrew Nick MD [Physician] - 06/22/17 1:00 pm (at [facility] come 15 mnutes prior to the appointment time.) - Discharge Summary/Plan Comment DC Time >30 min.: Yes (45 mins) - General Info Date of Service: 06/11/17 Admission Dx/Problem (Free Text: COPD Exacerbation, hypoxia, pneumonia Functional Status: Reports: Pain Controlled, Tolerating Diet, Ambulating, Urinating. Denies: New Symptoms - Review of Systems General: Reports: No Symptoms HEENT: Reports: No Symptoms Pulmonary: Reports: Shortness of Breath (at baseline ), Cough (chronic ). Denies: Pleuritic Chest Pain, Sputum, Wheezing Cardiovascular: Reports: Dyspnea on Exertion (chronic ). Denies: Chest Pain, Palpitations, Edema, Lightheadedness Gastrointestinal: Reports: No Symptoms Genitourinary: Reports: No Symptoms Musculoskeletal: Reports: No Symptoms Skin: Reports: No Symptoms Neurological: Reports: No Symptoms Psychiatric: Reports: No Symptoms - Patient Data Vitals - Most Recent: Last Vital Signs Temp 98.1 F 06/11/17 03:23 Pulse 75 06/11/17 03:23 Resp 18 06/11/17 03:23 BP 137/64 06/11/17 04:41 Pulse Ox 92 L 06/11/17 03:23 Weight - Most Recent: 233 lb I&O - Last 24 hours: Intake & Output 06/10/17 06/11/17 06/11/17 22:59 06:59 14:59 Intake Total 1190 500 Output Total 1450 1300 Balance -260 -800 Lab Results - Last 24 hrs: Laboratory Results - last 24 hr 06/10/17 06/10/17 06/10/17 Range/Units 05:40 05:40 05:40 WBC (4.23-9.07) K/mm3 RBC (4.63-6.08) M/mm3 Hgb (13.7-17.5) gm/L Hct (40.1-51.0) % MCV (79.0-92.2) fl MCH (25.7-32.2) pg MCHC (32.2-35.5) g/dl RDW Std Deviation (35.1-43.9) fL Plt Count (163-337) K/mm3 MPV (9.4-12.3) fl Neut % (Auto) (34.0-67.9) % Lymph % (Auto) (21.8-53.1) % [place] % (Auto) (5.3-12.2) % Eos % (Auto) (0.8-7.0) Baso % (Auto) (0.1-1.2) % Neut # (Auto) (1.78-5.38) K/mm3 Lymph # (Auto) (1.32-3.57) K/mm3 [place] # (Auto) (0.30-0.82) K/mm3 Eos # (Auto) (0.04-0.54) K/mm3 Baso # (Auto) (0.01-0.08) K/mm3 Manual Slide Review Abnormal smear Sodium 136 (136-145) mEq/L Potassium 4.4 (3.5-5.1) mEq/L Chloride 99 (98-107) mEq/L Carbon Dioxide 27 (21-32) mEq/L Anion Gap 14.4 (5-15) BUN 18 (7-18) mg/dL Creatinine 1.0 (0.7-1.3) mg/dL Est Cr Clr Drug Dosing 59.67 mL/min Estimated GFR (MDRD) > 60 (>60) mL/min BUN/Creatinine Ratio 18.0 (14-18) Glucose 210 H (83-115) mg/dL POC Glucose (83-110) mg/dL Hemoglobin A1c 7.50 H (4.50-6.20) % Calcium 8.9 (8.5-10.1) mg/dL C-Reactive Protein 6.7 H* (<1.0) mg/dL Triglycerides 49 (<150) mg/dL Cholesterol 143 (<200) mg/dL LDL Cholesterol Direct 87 (<100) mg/dL HDL Cholesterol 48.0 (40-59) mg/dL Mycoplasma pneumon IgM Negative (NEGATIVE) 06/10/17 06/11/17 Range/Units 11:23 05:45 WBC 18.46 H (4.23-9.07) K/mm3 RBC 3.91 L (4.63-6.08) M/mm3 Hgb 11.7 L (13.7-17.5) gm/L Hct 35.9 L (40.1-51.0) % MCV 91.8 (79.0-92.2) fl MCH 29.9 (25.7-32.2) pg MCHC 32.6 (32.2-35.5) g/dl RDW Std Deviation 47.6 H (35.1-43.9) fL Plt Count 333 (163-337) K/mm3 MPV 9.8 (9.4-12.3) fl Neut % (Auto) 92.2 H (34.0-67.9) % Lymph % (Auto) 4.7 L (21.8-53.1) % [place] % (Auto) 2.4 L (5.3-12.2) % Eos % (Auto) 0 L (0.8-7.0) Baso % (Auto) 0.1 (0.1-1.2) % Neut # (Auto) 17.02 H (1.78-5.38) K/mm3 Lymph # (Auto) 0.87 L (1.32-3.57) K/mm3 [place] # (Auto) 0.45 (0.30-0.82) K/mm3 Eos # (Auto) 0.00 L (0.04-0.54) K/mm3 Baso # (Auto) 0.01 (0.01-0.08) K/mm3 Manual Slide Review Sodium (136-145) mEq/L Potassium (3.5-5.1) mEq/L Chloride (98-107) mEq/L Carbon Dioxide (21-32) mEq/L Anion Gap (5-15) BUN (7-18) mg/dL Creatinine (0.7-1.3) mg/dL Est Cr Clr Drug Dosing mL/min Estimated GFR (MDRD) (>60) mL/min BUN/Creatinine Ratio (14-18) Glucose (83-115) mg/dL POC Glucose 235 H (83-110) mg/dL Hemoglobin A1c (4.50-6.20) % Calcium (8.5-10.1) mg/dL C-Reactive Protein (<1.0) mg/dL Triglycerides (<150) mg/dL Cholesterol (<200) mg/dL LDL Cholesterol Direct (<100) mg/dL HDL Cholesterol (40-59) mg/dL Mycoplasma pneumon IgM (NEGATIVE) JAVI Results - Last 24 hrs: Microbiology 06/09/17 21:37 Respiratory Virus Panel (PCR) (JAVI) - Final Nasopharyngeal Swab 06/09/17 19:31 Aerobic Blood Culture - Preliminary Blood - Venous - Lab Draw NO GROWTH AFTER 1 DAY Anaerobic Blood Culture - Preliminary NO GROWTH AFTER 1 DAY 06/09/17 19:25 Aerobic Blood Culture - Preliminary Blood - Venous NO GROWTH AFTER 1 DAY Anaerobic Blood Culture - Preliminary NO GROWTH AFTER 1 DAY Med Orders - Current: Current Medications Acetaminophen (Tylenol) 650 mg PO Q4H PRN PRN Reason: Pain/Fever Last Admin: 06/11/17 00:52 Dose: 650 mg Albuterol (Proventil Neb Soln) 2.5 mg NEB Q4HRRT PRN PRN Reason: Shortness of Breath Albuterol/Ipratropium (Duoneb 3.0-0.5 Mg/3 Ml) 3 ml NEB QID PRN PRN Reason: Shortness of Breath Last Admin: 06/10/17 13:36 Dose: 3 ml Aspirin (Ecotrin) 325 mg PO QPM [facility] Last Admin: 06/10/17 17:13 Dose: 325 mg Dextrose/Water (Dextrose 50% In Water) 50 ml IVPUSH ASDIRECTED PRN PRN Reason: Hypoglycemia Enoxaparin Sodium (Lovenox) 40 mg SUBCUT DAILY [facility] Last Admin: 06/10/17 09:21 Dose: 40 mg Famotidine (Pepcid) 20 mg PO BEDTIME [facility] Last Admin: 06/10/17 21:36 Dose: 20 mg Furosemide (Lasix) 40 mg PO DAILY [facility] Last Admin: 06/10/17 09:20 Dose: 40 mg Gabapentin (Neurontin) 300 mg PO BID [facility] Last Admin: 06/10/17 21:36 Dose: 300 mg Hydralazine HCl (Apresoline) 20 mg IVPUSH Q6H PRN PRN Reason: Hypertension Last Admin: 06/10/17 06:37 Dose: 20 mg Levofloxacin/Dextrose 750 mg/ (Premix) 150 mls @ 100 mls/hr IV Q24H [facility] Last Admin: 06/10/17 13:36 Dose: 100 mls/hr Insulin Aspart (Novolog) 0 unit SUBCUT QIDACANDBED [facility] PRN Reason: Protocol Last Admin: 06/10/17 21:37 Dose: 2 units Losartan Potassium (Cozaar) 25 mg PO BID [facility] Last Admin: 06/10/17 21:35 Dose: 25 mg Metformin HCl (Glucophage) 1,000 mg PO BIDMEALS [facility] Last Admin: 06/11/17 06:55 Dose: 1,000 mg Methylprednisolone Sodium Succinate (Solu-Medrol) 125 mg IVPUSH Q6H [facility] Last Admin: 06/11/17 06:55 Dose: 125 mg Metoprolol Succinate (Toprol Xl) 100 mg PO QPM [facility] Last Admin: 06/10/17 17:13 Dose: 100 mg Mometasone Furoate/Formoterol Fumar (Dulera 200-5 Mcg) 2 puff IH BID [facility] Last Admin: 06/10/17 20:37 Dose: 2 puff Psyllium Husk (Metamucil Sugar Free) 1 packet PO BID [facility] Last Admin: 06/10/17 21:37 Dose: 1 packet Simvastatin (Zocor) 20 mg PO BEDTIME [facility] Last Admin: 06/10/17 21:36 Dose: 20 mg Sodium Chloride (Saline Flush) 10 ml FLUSH ASDIRECTED PRN PRN Reason: Keep Vein Open Last Admin: 06/09/17 17:35 Dose: 10 ml Tamsulosin HCl (Flomax) 0.4 mg PO QPM [facility] Last Admin: 06/10/17 17:13 Dose: 0.4 mg Tiotropium [place] (Spiriva Handihaler) 18 mcg INH DAILY [facility] Last Admin: 06/10/17 09:38 Dose: Not Given Trazodone HCl (Trazodone) 50 mg PO BEDTIME PRN PRN Reason: Sleep Last Admin: 06/10/17 21:36 Dose: 50 mg Discontinued Medications Acetaminophen (Tylenol) 650 mg PO Q6H PRN PRN Reason: Fever Albuterol/Ipratropium (Duoneb 3.0-0.5 Mg/3 Ml) 3 ml NEB ONETIME ONE Stop: 06/09/17 17:14 Last Admin: 06/09/17 17:37 Dose: 3 ml Albuterol/Ipratropium (Duoneb 3.0-0.5 Mg/3 Ml) 3 ml NEB ONETIME ONE Stop: 06/09/17 18:20 Last Admin: 06/09/17 18:24 Dose: 3 ml Levofloxacin/Dextrose 750 mg/ (Premix) 150 mls @ 100 mls/hr IV ONETIME ONE Stop: 06/09/17 20:13 Last Admin: 06/09/17 19:14 Dose: 100 mls/hr Sodium Chloride (Sodium Chloride 0.45%) 1,000 mls @ 125 mls/hr IV ASDIRECTED [facility] Last Admin: 06/09/17 22:18 Dose: 125 mls/hr Methylprednisolone Sodium Succinate (Solu-Medrol) 125 mg IVPUSH ONETIME ONE Stop: 06/09/17 17:15 Last Admin: 06/09/17 17:33 Dose: 125 mg Mometasone Furoate/Formoterol Fumar (Dulera 200-5 Mcg) 2 puff IH BIDRT [facility] Last Admin: 06/10/17 11:44 Dose: Not Given Non-Formulary Medication (Fluticasone/Salmeterol) 1 puff INH BID [facility] Last Admin: 06/10/17 11:07 Dose: Not Given Non-Formulary Medication (Psyllium Husk) 1 cap PO BID [facility] Last Admin: 06/10/17 21:05 Dose: Not Given - Exam Quality Assessment: Reports: DVT Prophylaxis General: Reports: Alert, Oriented, Cooperative, No Acute Distress HEENT: Reports: Pupils Equal, Pupils Reactive, EOMI, Mucous Membr. Moist/[place] Neck: Reports: Supple, Trachea Midline, No JVD, No Thyromegaly Lungs: Reports: Normal Respiratory Effort, Decreased Breath Sounds, Wheezing ( very mild - baseline ) Cardiovascular: Reports: Regular Rate, Regular Rhythm, No Murmurs GI/Abdominal Exam: Normal Bowel Sounds, Soft, Non-Tender, No Organomegaly, No Distention, No Abnormal Bruit, No Mass, Pelvis Stable (Male) Exam: Deferred Rectal (Males) Exam: Deferred Back Exam: Reports: Normal Inspection, Full Range of Motion Extremities: Normal Inspection, Normal Range of Motion, Non-Tender, No Pedal Edema, Normal Capillary Refill Skin: Reports: Warm, Dry, Intact Wound/Incisions: Reports: Healing Well Neurological: Reports: No New Focal Deficit Psy/Mental Status: Reports: Alert, Normal Affect, Normal Mood *Q Meaningful Use (DIS) - VTE *Q VTE Criteria *Q: - Stroke *Q Stroke Criteria *Q: - AMI *Q AMI Criteria *Q:
[2017-06-11] MEDS: Insulin Aspart 100 Units/ML 3 ML Pen SUBCUT SCH ×2 (08:15→12:24)
[2017-06-11] MEDS: Losartan 25 MG Tab PO SCH (08:16)
[2017-06-11] MEDS: Enoxaparin 40 MG/0.4 ML Syringe SUBCUT SCH (08:17)
[2017-06-11] MEDS: Furosemide 40 MG Tab PO SCH (08:17)
[2017-06-11] MEDS: Gabapentin 300 MG Cap PO SCH (08:18)
[2017-06-11] MEDS: Psyllium Husk Powder Sugar Free 3.4 GM Packet PO SCH (08:18)
[2017-06-11] MEDS: Formoterol/Mometasone 200-5 MCG 8.8 GM Inhaler IH SCH (09:11)
[2017-06-11] MEDS: Tiotropium Inhaler 18 MCG Inhalation Powder Cap Kit of 5 INH SCH (09:11)
[2017-06-11] MEDS ORDERED: Pneumococcal 13-Valent Conjugate Vaccine 0.5 ML Syringe IM ONE (10:37)
[2017-06-11] MEDS ORDERED: Diphtheria,Pertussis(Acell),Tetanus Vaccine 0.5 ML SDV IM ONE (10:37)
[2017-06-11] MEDS ORDERED: FLU Vacc TS 2017-18 (65yr UP)/PF 180 MCG/0.5 ML Syringe IM ONE (10:37)
[2017-06-11 12:10] VITALS: BP 149/77
[2017-06-11] MEDS: Levofloxacin/Dextrose 5%-Water 750 MG in Premix Bag 1 BAG IV SCH (12:24)
== END 2017-06-11 14:30 | disposition home or self-care (01) | DRG 192 ==
LOC: JD.ED 16:54 → JD.MS 19:20
PROVIDERS: ADMIT Internal Medicine Cardiovascular Disease; ATTEND Internal Medicine Cardiovascular Disease
DX: J44.1 Chronic obstructive pulmonary disease with (acute) exacerbation (principal); J06.9 Acute upper respiratory infection, unspecified; Z87.891 Personal history of nicotine dependence; R09.02 Hypoxemia; E11.65 Type 2 diabetes mellitus with hyperglycemia; Z79.84 Long term (current) use of oral hypoglycemic drugs; G47.33 Obstructive sleep apnea (adult) (pediatric); I25.10 Atherosclerotic heart disease of native coronary artery without angina pectoris; I12.9 Hypertensive chronic kidney disease with stage 1 through stage 4 chronic kidney disease, or unspecified chronic kidney disease; E11.42 Type 2 diabetes mellitus with diabetic polyneuropathy; N18.9 Chronic kidney disease, unspecified; N40.0 Benign prostatic hyperplasia without lower urinary tract symptoms; M19.90 Unspecified osteoarthritis, unspecified site; Z95.2 Presence of prosthetic heart valve; E78.5 Hyperlipidemia, unspecified; E66.9 Obesity, unspecified; Z68.30 Body mass index [BMI] 30.0-30.9, adult; I73.9 Peripheral vascular disease, unspecified; Z79.82 Long term (current) use of aspirin; Z79.899 Other long term (current) drug therapy
CPT/HCPCS: 36415; 71020; 80053; 84484; 85025; 87804 ×2; 93005; 94640 ×2; 96365; 96375; 99285; J1956; J2930; J7050; 80048; 80061; 82962; 83036; 86140; 86738; 87040; 87486; 87581; 87633; 87798; 90471; 90662; 90670; 90715; 93010; 94760; 97161-GP; 97165-GO; A9270; A9270-GY; G0008; G0009; J0360; J1650; J1815-GY; J7030

== ENCOUNTER 2017-08-22 05:41 | Emergency (ER) | payer MEDICARE, BC ==
--- NOTE | 2017-08-22 06:26 | EDM.PDOC ---
<Akbar Hernandez - Last Filed: 08/22/17 06:33> ED HPI GENERAL MEDICAL PROBLEM - General Chief Complaint: Respiratory Problem Stated Complaint: HAD SURGERY-HAVING A HARD TIME BREATHING Time Seen by Provider: 08/22/17 05:56 Source of Information: Reports: Patient, Family History Limitations: Reports: No Limitations - History of Present Illness INITIAL COMMENTS - FREE TEXT/NARRATIVE: This is a 77-year-old male. Last Thursday he had fusion of his cervical spine by Dr. Monterroso in [place]. Apparently he had C1-3 fused they skipped C4 and they had C5 and 6 fused. Patient was kept in the hospital an extra day because of the swelling around the surgical site. Since he's been home he has noted he has a difficult time breathing and he can't breathe properly. He normally uses CPAP at night time but he hasn't been using it recently because he feels like he can' t get his breath. He does have a history of COPD and he was admitted to this hospital in the past due to hypoxemia but he doesn't know why he had the hypoxemia. He denies any history of congestive heart failure though he does have a history of peripheral edema after he had his aortic valve replaced. He was noted in the hospital in [place] after the surgery to have some low saturation levels when he was trying to sleep. He does not have oxygen at home. He is able to swallow but he says his spit is too thick for him to be able to cough it out and it hurts to cough. He denies any fever or chills he denies any nausea or vomiting. Last night he was very uncomfortable with his breathing and the pressure and so he stayed in a recliner most of the evening though he did try to lie down at one time but was unable to due to the feeling of shortness of breath. He finally comes to the ER for evaluation. Neck Pain Score (Numeric/FACES): 10 - Related Data Allergies Allergy/AdvReac Type Severity Reaction Status Date / Time No Known Allergies Allergy Verified 08/22/17 05:56 Home Meds: Home Meds Albuterol [Proventil Neb Soln] 2.5 mg NEB Q6HR PRN 01/27/16 [History] Albuterol/Ipratropium [DuoNeb 3.0-0.5 MG/3 ML] 2.5 mg NEB Q6HR PRN 01/27/16 [ History] Aspirin [Ecotrin] 325 mg PO QPM 01/27/16 [History] Fluticasone/Salmeterol [Advair Diskus 500-50] 1 puff INH BID 01/27/16 [History] Furosemide [Lasix] 40 mg PO DAILY 01/27/16 [History] Gabapentin [Neurontin] 300 mg PO BID 01/27/16 [History] Losartan [Cozaar] 50 mg PO DAILY 01/27/16 [History] Metoprolol Succinate [Toprol XL] 100 mg PO QPM 01/27/16 [History] Pravastatin [Pravachol] 80 mg PO DAILY 01/27/16 [History] Psyllium Husk [Metamucil] 1 cap PO BID 01/27/16 [History] Tamsulosin [Flomax] 0.4 mg PO BEDTIME 01/27/16 [History] Tiotropium [Spiriva HandiHaler] 18 mcg INH DAILY 01/27/16 [History] Celecoxib [CeleBREX] 200 mg PO BID 08/22/17 [History] Cephalexin [Keflex] 500 mg PO QID 08/22/17 [History] Cyclobenzaprine [Flexeril] 10 mg PO TID PRN 08/22/17 [History] Docusate Sodium [Colace] 100 mg PO BEDTIME PRN 08/22/17 [History] Hydrocodone/Acetaminophen [Hydrocodon-Acetaminophn 10-325] 1 tab PO Q6HR PRN 04/29 [History] Montelukast [Singulair] 10 mg PO DAILY 08/22/17 [History] Theophylline [Anders-24] 300 mg PO BID 08/22/17 [History] Past Medical History Cardiovascular History: Reports: CAD, Heart Valve Replacement, High Cholesterol , Hypertension Respiratory History: Reports: COPD, Sleep Apnea Gastrointestinal History: Reports: Other (See Below) Other Gastrointestinal History: Polyps removed Genitourinary History: Reports: BPH, Chronic Renal Insuffiency Musculoskeletal History: Reports: Osteoarthritis Neurological History: Reports: Neuropathy, Peripheral Endocrine/Metabolic History: Reports: Diabetes, Type II, Obesity/BMI 30+ - Infectious Disease History Infectious Disease History: Reports: Measles, Mumps, Rheumatic Fever, Shingles, Other (See Below) Other Infectious Disease History: [facility] - Past Surgical History Head Surgeries/Procedures: Reports: None HEENT Surgical History: Reports: Cataract Surgery, Eye Surgery Cardiovascular Surgical History: Reports: Carotid Endarterectomy, Valve Replacement Neurological Surgical History: Reports: Lumbar Spine Other Neurological Surgeries/Procedures: Lumbar spine surgery x 3 including spinal fusion 15+ years ago. Musculoskeletal Surgical History: Reports: Knee Replacement Other Musculoskeletal Surgeries/Procedures:: B TKA Social & Family History - Family History Family Medical History: Noncontributory - Tobacco Use Smoking Status *Q: Former Smoker Years of Tobacco use: 10 Packs/Tins Daily: 2 Used Tobacco, but Quit: Yes Month Tobacco Last Used: 1964 Second Hand Smoke Exposure: No - Caffeine Use Caffeine Use: Reports: Coffee Other Caffeine Use: 1/day - Recreational Drug Use Recreational Drug Use: No - Living Situation & Occupation Living situation: Reports: , with Spouse Occupation: Retired ED ROS GENERAL - Review of Systems Review Of Systems: See Below Constitutional: Reports: Malaise. Denies: Fever, Chills HEENT: Reports: No Symptoms Respiratory: Reports: Shortness of Breath, Cough. Denies: Wheezing Cardiovascular: Denies: Chest Pain Endocrine: Reports: No Symptoms GI/Abdominal: Denies: Abdominal Pain, Nausea, Vomiting : Reports: No Symptoms Musculoskeletal: Reports: Other (As per history of present illness) Skin: Reports: Other (as per history of present illness) Neurological: Reports: No Symptoms Psychiatric: Reports: Other (He gets a little anxious when he thinks he can't breathe) Hematologic/Lymphatic: Reports: No Symptoms ED EXAM, GENERAL - Physical Exam Exam: See Below Exam Limited By: No Limitations General Appearance: Alert, WD/WN, No Apparent Distress, Other (He is in no respiratory distress, however I turned his oxygen off his saturation will drop to 87-88% on room air when he is resting deeply but then he will wake up and start breathing normally again and it goes back up to 94-96%) Eye Exam: Bilateral Eye: Normal Inspection Ears: Normal External Exam, Normal Canal, Normal TMs Nose: Normal Inspection Throat/Mouth: Normal Inspection, Other (Dry mucous membranes, large tongue, Mallampati Score Class IV) Head: Normocephalic Neck: Other (Anterior neck area just above the larynx there is an incision with swelling noted lots of bruising and discoloration down his neck into his anterior chest area, I can feel his larynx and I can move his larynx without difficulty but he feels that pressure of the swelling which makes him feel like he can't breathe, he has limited range of motion of his neck) Respiratory/Chest: No Respiratory Distress, Lungs Clear, Normal Breath Sounds Cardiovascular: Regular Rate, Rhythm, Other (He is noted to have a systolic click which would represent his artificial aortic valve) GI/Abdominal: Soft, Non-Tender Back Exam: Full Range of Motion Extremities: Normal Inspection, Normal Range of Motion, Other (His lower extremities are nontender and there is no significant swelling, there is no erythema no cords felt. Denies any pain in his lower extremities) Neurological: Alert, Oriented Psychiatric: Normal Affect, Normal Mood Skin Exam: Warm, Dry Course - Vital Signs Last Recorded V/S: Last Vital Signs Temp 97.8 F 08/22/17 11:00 Pulse 106 H 08/22/17 11:00 Resp 22 H 08/22/17 11:00 BP 191/84 H 08/22/17 11:00 Pulse Ox 99 08/22/17 11:00 - Orders/Labs/Meds Orders: Active Orders 24 hr Category Date Time Status RT Aerosol Therapy [RC] ASDIRECTED Care 08/22/17 07:01 Active RT Aerosol Therapy [RC] ASDIRECTED Care 08/22/17 09:31 Active Chest 2V [CR] Stat Exams 08/22/17 06:19 Taken Neck Soft Tissue [CR] Stat Exams 08/22/17 06:20 Taken Soft Tissue Neck w Cont [CT] Stat Exams 08/22/17 08:31 Taken Labs: Laboratory Tests 08/22/17 08/22/17 08/22/17 Range/Units 06:40 06:40 06:40 WBC 10.89 H (4.23-9.07) K/mm3 RBC 4.18 L (4.63-6.08) M/mm3 Hgb 12.0 L (13.7-17.5) gm/L Hct 37.4 L (40.1-51.0) % MCV 89.5 (79.0-92.2) fl MCH 28.7 (25.7-32.2) pg MCHC 32.1 L (32.2-35.5) g/dl RDW Std Deviation 46.4 H (35.1-43.9) fL Plt Count 250 (163-337) K/mm3 MPV 8.9 L (9.4-12.3) fl Neut % (Auto) 67.9 (34.0-67.9) % Lymph % (Auto) 15.8 L (21.8-53.1) % [place] % (Auto) 10.1 (5.3-12.2) % Eos % (Auto) 5.5 (0.8-7.0) Baso % (Auto) 0.4 (0.1-1.2) % Neut # (Auto) 7.40 H (1.78-5.38) K/mm3 Lymph # (Auto) 1.72 (1.32-3.57) K/mm3 [place] # (Auto) 1.10 H (0.30-0.82) K/mm3 Eos # (Auto) 0.60 H (0.04-0.54) K/mm3 Baso # (Auto) 0.04 (0.01-0.08) K/mm3 Sodium 139 (136-145) mEq/L Potassium 3.8 (3.5-5.1) mEq/L Chloride 101 (98-107) mEq/L Carbon Dioxide 32 (21-32) mEq/L Anion Gap 9.8 (5-15) BUN 14 (7-18) mg/dL Creatinine 0.8 (0.7-1.3) mg/dL Est Cr Clr Drug Dosing 74.59 mL/min Estimated GFR (MDRD) > 60 (>60) mL/min BUN/Creatinine Ratio 17.5 (14-18) Glucose 127 H (83-115) mg/dL Calcium 8.9 (8.5-10.1) mg/dL Total Bilirubin 0.5 (0.2-1.0) mg/dL AST 22 (15-37) U/L ALT 21 (16-63) U/L Alkaline Phosphatase 61 (46-116) U/L NT-Pro-B Natriuret Pep 493 H (0-450) pg/mL Total Protein 6.8 (6.4-8.2) g/dl Albumin 2.9 L (3.4-5.0) g/dl Globulin 3.9 gm/dL Albumin/Globulin Ratio 0.7 L (1-2) Meds: Medications Discontinued Medications Generic Name Dose Route Start Last Admin Trade Name Quentin PRN Reason Stop Dose Admin Hydrocodone Bitart/Acetaminophen 1 tab 08/22/17 08:06 08/22/17 08:12 [place] 325-10 Mg PO 08/22/17 08:07 1 tab ONETIME ONE Administration Albuterol 2.5 mg 08/22/17 07:01 08/22/17 07:12 Proventil Neb Soln NEB 08/22/17 07:02 2.5 mg ONETIME ONE Administration Albuterol/Ipratropium 3 ml 08/22/17 09:31 08/22/17 10:03 Duoneb 3.0-0.5 Mg/3 Ml NEB 08/22/17 09:32 3 ml ONETIME ONE Administration Sodium Chloride 1,000 mls @ 1,000 mls/hr 08/22/17 06:30 08/22/17 07:06 Normal Saline IV 1,000 mls/hr ASDIRECTED NEHAL Administration Piperacillin Sod/Tazobactam 100 mls @ 200 mls/hr 08/22/17 10:19 08/22/17 10: 31 Sod 4.5 gm/ Sodium Chloride IV 08/22/17 10:48 200 mls/hr ONETIME ONE Administration Iopamidol 100 ml 08/22/17 08:59 08/22/17 09:13 Isovue-300 (61%) IVPUSH 08/22/17 09:00 100 ml ONETIME ONE Administration Methylprednisolone Sodium Succinate 125 mg 08/22/17 07:02 08/22/17 07:07 Solu-Medrol IVPUSH 08/22/17 07:03 125 mg ONETIME ONE Administration Sodium Chloride 10 ml 08/22/17 08:59 08/22/17 09:13 Saline Flush FLUSH 08/22/17 09:00 10 ml ONETIME ONE Administration Departure - Departure Disposition: DC/Tfer to Acute Hospital 02 Clinical Impression: Oropharyngeal mass - Discharge Information Referrals: Andrew Nick MD [Primary Care Provider] - Forms: ED Department Discharge - My Orders Last 24 Hours: My Active Orders 08/22/17 07:01 RT Aerosol Therapy [RC] ASDIRECTED 08/22/17 08:31 Soft Tissue Neck w Cont [CT] Stat 02/10/18 09:31 RT Aerosol Therapy [RC] ASDIRECTED - Assessment/Plan Last 24 Hours: My Active Orders 08/22/17 07:01 RT Aerosol Therapy [RC] ASDIRECTED 08/22/17 08:31 Soft Tissue Neck w Cont [CT] Stat 08/22/17 09:31 RT Aerosol Therapy [RC] ASDIRECTED <Mariposa,Pradeep L - Last Filed: 08/22/17 16:16> Course - Re-Assessments/Exams Free Text/Narrative Re-Assessment/Exam: 08/22/17 07:29 Have assumed care from Dr Hernandez after change of shift. I agree with his hx and exam as documented. Have ordered an albuterol neb, solumedrol IV. Awaiting labs. RT has had a difficult time getting sample for ABG's, after 4 tries have asked them to stop. sats 92 to 95 % room air sitting upright at edge of bed just a few minutes ago. His sats than "dropped to about 89 to 91 so 02 restarted for now. 08/22/17 08:30. Have been waiting for Radiology report for soft tissue neck CT. Just realize now that soft tissue neck was ordered instead of CT. The purpose is to R/O abcess which only the CT can do for us. Have ordered the CT soft tissue neck at this time. 08/22/17 10:35. Radiologist from [facility] telephoned us about 15 minutes ago stating that he does have significant swelling, fluid collection of the retropharyngeal soft tissues anterior to C3 and 4. There is severe narrowing of the oropharyngeal airway at that level as well. Findings could represent postsurgical changes with inflammation and a retropharyngeal hematoma, superimposed infectious process with retropharyngeal abscess is not ruled out. See radiology report for further details. Patient continues to do okay awaiting these results. He has been ambulatory to the bathroom without difficulty. His breathing is okay as long as he remains sitting up. When he does attempt to lay flat than the breathing becomes more difficult. He states also that swallowing has become more difficult for him over the past 24 hours. O2 sats currently running 91-92%. He currently is not tachypnic. He does not have inspiratory stridor or wheezing. We are going to put a couple of liters on just to help elevate his oxygenation. I am not comfortable sending him ground ambulance due to length of time between our hospital and [facility]. [facility] has been called for transfer. They are here preparing for transport at this time. Dr Hickman, [facility] accepting physician. He will be routed to the ED. Zosyn 4.5 gram IV has been started. Departure - Departure Time of Disposition: 10:30
[2017-08-22] MEDS ORDERED: Sodium Chloride 0.9% 1,000 ML IV SCH (06:30)
[2017-08-22] MEDS ORDERED: Albuterol 0.083% 2.5 MG/3 ML Neb Soln NEB ONE (07:01)
[2017-08-22] MEDS ORDERED: methylPREDNISolone Sodium Succinate 125 MG/2 ML SDV IVPUSH ONE (07:02)
[2017-08-22] MEDS ORDERED: Acetaminophen/HYDROcodone 325-10 MG Tab PO ONE (08:06)
[2017-08-22] MEDS ORDERED: Sodium Chloride 0.9% 10 ML Syringe FLUSH ONE (08:59)
[2017-08-22] MEDS ORDERED: Iopamidol 612 MG/ML 100 ML Bottle IVPUSH ONE (08:59)
[2017-08-22] MEDS ORDERED: Albuterol/Ipratropium 3.0-0.5 MG/3 ML Neb Soln NEB ONE (09:31)
[2017-08-22] MEDS ORDERED: Piperacillin/Tazobactam 4.5 GM in Sodium Chloride 0.9% 100 ML IV ONE (10:19)
[2017-08-22 11:12] VITALS: BP 191/84
--- NOTE | 2017-08-23 17:44 | CR ---
Soft tissue neck: Lateral and AP views of the neck were obtained for soft tissue purposes. Marked swelling is seen within the prevertebral soft tissues. Surgical clips are seen within the prevertebral soft tissues as well as anterior plate and screws affixing the C3-C4 vertebral bodies through the C5-C6 vertebral bodies. Soft tissue air is seen anterior to the airway. Vascular calcification is noted. Impression: 1. Findings as noted above. Diagnostic code #3
--- NOTE | 2017-08-23 17:44 | CR ---
Chest: Two views of the chest were obtained. Comparison: Prior chest x-ray of 01/27/16. Heart size is normal. Mild tortuosity of the thoracic aorta is seen. Slight linear densities are seen within the left mid lung which is felt compatible with minimal discoid atelectasis. Minimal discoid atelectasis is seen within the left base. Lungs otherwise are clear. Previous sternotomy is noted. Previous cervical spine surgery is noted. Bony structures show anterior wedging at the thoracolumbar junction which appears old. Scattered degenerative change is noted within the spine. Impression: 1. Incidental findings. Nothing acute is seen. Diagnostic code #2
--- NOTE | 2017-08-23 17:44 | CT ---
CT neck Technique: Multiple axial sections through the neck were obtained. Intravenous contrast was utilized. Reconstructed coronal and sagittal images were reviewed. Comparison: Prior plain film soft tissue neck exam performed earlier on the same day (6:44 AM). Findings: Prior surgery is seen with recent fusion at C3-C4, C4-C5 and C5-C6. Disc space narrowing is noted at C6-C7 through T2-T3. Diffuse degenerative apophyseal change is noted. Marked soft tissue swelling is seen within the prevertebral soft tissues. Soft tissue air is noted within the prevertebral soft tissues. Low-density fluid collection is seen within the prevertebral soft tissues which narrows the subglottic airway. Fluid collection has an AP measurement of approximately 2.9 cm with a craniocaudal measurement (felt to be somewhat inaccurate due to ill-defined nature of this finding) but measures at least 4.5 cm in length. Soft tissue swelling extends to the left side of the neck anteriorly with mild inflammatory change seen around the left submandibular gland. Air is noted within the inflammatory change anteriorly within the neck. Visualized lung apices are clear. Thyroid gland appears within normal limits. No peritonsillar abscess is seen. Parotid salivary glands appear unremarkable. Paranasal sinuses show minimal mucosal thickening or retention cyst inferiorly within the right maxillary sinus. Impression: 1. Diffuse thickening within the prevertebral soft tissues which contains fluid as well as air. Difficult to determine how much of this represents postoperative change and hematoma versus cellulitis and possible abscess. 2. Extension of inflammatory change into the anterior left lower neck which also contains air. Again, difficult to determine how much of this represent postoperative change versus infection. 3. Previous cervical spine surgery. Other degenerative change noted within the cervical spine. 3. Other incidental findings. Diagnostic code #5 Agree with preliminary report issued by [facility] ([facility] preliminary report dictated on 08/22/17, 11:07 AM Central Time)
== END 2017-08-22 11:00 ==
LOC: JD.ED 05:41
DX: R22.1 Localized swelling, mass and lump, neck (principal); I12.9 Hypertensive chronic kidney disease with stage 1 through stage 4 chronic kidney disease, or unspecified chronic kidney disease; N18.9 Chronic kidney disease, unspecified; E11.22 Type 2 diabetes mellitus with diabetic chronic kidney disease; J44.9 Chronic obstructive pulmonary disease, unspecified; I25.10 Atherosclerotic heart disease of native coronary artery without angina pectoris; E78.00 Pure hypercholesterolemia, unspecified; Z79.899 Other long term (current) drug therapy; Z98.1 Arthrodesis status; Z98.890 Other specified postprocedural states; Z87.891 Personal history of nicotine dependence
CPT/HCPCS: 36415; 70360; 70491; 71046; 80053; 83880; 85025; 94640; 96361; 96365; 96375; 99285; A9270; J2543; J2930; J7030; J7040; J7050; Q9967

== ENCOUNTER 2018-12-04 21:13 | Emergency (ER) | payer MEDICARE, BC ==
[2018-12-04 21:30] VITALS: BP 176/74
--- NOTE | 2018-12-04 22:43 | EDM.PDOC ---
ED HPI GENERAL MEDICAL PROBLEM - General Chief Complaint: Lower Extremity Injury/Pain Stated Complaint: KNEE PAIN Time Seen by Provider: 12/04/18 21:39 Source of Information: Reports: Patient History Limitations: Reports: No Limitations - History of Present Illness INITIAL COMMENTS - FREE TEXT/NARRATIVE: This is a 78-year-old male. Since yesterday his been having some medial sided left knee pain. He doesn't recall any trauma as far as hitting it or twisting it. 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 But every time he extends his leg completely it hurts and he is not able to bear weight on that left leg. There is no swelling there is no inflammation there is no other acute findings. He comes to the ER for evaluation. As an aside he also has some right sided neck pain where he had an carotid endarterectomy. This been going on for the last 6 months or more I suggested he follow up with his family physician or his surgeon for an ultrasound of the neck and the carotid artery since we're not able to do this in the ER. He denies any tooth pain because he wears dentures he denies any jaw pain or ear pain. He has free movement of the cervical spine. Left Knee Pain Score (Numeric/FACES): 6 - Related Data Allergies Allergy/AdvReac Type Severity Reaction Status Date / Time No Known Allergies Allergy Verified 12/04/18 21:26 Home Meds: Home Meds Albuterol [Proventil Neb Soln] 2.5 mg NEB Q6HR PRN 01/27/16 [History] Albuterol/Ipratropium [DuoNeb 3.0-0.5 MG/3 ML] 2.5 mg NEB Q6HR PRN 01/27/16 [ History] Fluticasone/Salmeterol [Advair Diskus 500-50] 1 puff INH BID 01/27/16 [History] Furosemide [Lasix] 40 mg PO DAILY 01/27/16 [History] Gabapentin [Neurontin] 300 mg PO BID 01/27/16 [History] Losartan [Cozaar] 50 mg PO DAILY 01/27/16 [History] Metoprolol Succinate [Toprol XL] 100 mg PO QPM 01/27/16 [History] Pravastatin [Pravachol] 80 mg PO DAILY 01/27/16 [History] Psyllium Husk [Metamucil] 1 cap PO BID 01/27/16 [History] Tamsulosin [Flomax] 0.4 mg PO BEDTIME 01/27/16 [History] Tiotropium [Spiriva HandiHaler] 18 mcg INH DAILY 01/27/16 [History] Montelukast [Singulair] 10 mg PO DAILY 08/22/17 [History] Theophylline [Anders-24] 300 mg PO BID 08/22/17 [History] Hydrocodone/Acetaminophen [Hydrocodon-Acetaminophen 5-325] 1 each PO Q6H PRN # 15 tablet 12/04/18 [Rx] Past Medical History Cardiovascular History: Reports: CAD, Heart Valve Replacement, High Cholesterol , Hypertension Respiratory History: Reports: COPD, Sleep Apnea Gastrointestinal History: Reports: Other (See Below) Other Gastrointestinal History: Polyps removed Genitourinary History: Reports: BPH, Chronic Renal Insuffiency Musculoskeletal History: Reports: Osteoarthritis Neurological History: Reports: Neuropathy, Peripheral Endocrine/Metabolic History: Reports: Diabetes, Type II, Obesity/BMI 30+ - Infectious Disease History Infectious Disease History: Reports: Measles, Mumps, Rheumatic Fever, Shingles, Other (See Below) Other Infectious Disease History: [place] - Past Surgical History Head Surgeries/Procedures: Reports: None HEENT Surgical History: Reports: Cataract Surgery, Eye Surgery Cardiovascular Surgical History: Reports: Carotid Endarterectomy, Valve Replacement Neurological Surgical History: Reports: Lumbar Spine Other Neurological Surgeries/Procedures: Lumbar spine surgery x 3 including spinal fusion 15+ years ago. Musculoskeletal Surgical History: Reports: Knee Replacement Other Musculoskeletal Surgeries/Procedures:: B TKA Social & Family History - Family History Family Medical History: Noncontributory - Tobacco Use Smoking Status *Q: Never Smoker - Caffeine Use Caffeine Use: Reports: Coffee Other Caffeine Use: 1/day - Living Situation & Occupation Living situation: Reports: , with Spouse Occupation: Retired Review of Systems - Review of Systems Review Of Systems: See Below Constitutional: Denies: Chills, Fever Eyes: Reports: No Symptoms Ears: Reports: No Symptoms Nose: Reports: No Symptoms Mouth/Throat: Reports: Pain, Other (Right-sided neck pain unknown etiology) Respiratory: Reports: Other (Mild shortness of breath over the last week) Cardiovascular: Reports: No Symptoms GI/Abdominal: Reports: No Symptoms Genitourinary: Reports: No Symptoms Musculoskeletal: Reports: Other (Left knee pain) Skin: Reports: No Symptoms Neurological: Reports: No Symptoms Psychiatric: Reports: No Symptoms ED EXAM, GENERAL - Physical Exam Exam: See Below Exam Limited By: No Limitations General Appearance: Alert, WD/WN, No Apparent Distress Eye Exam: Bilateral Eye: Normal Inspection Ears: Normal External Exam, Normal Canal, Normal TMs Nose: Normal Inspection Throat/Mouth: Normal Inspection, Normal Lips, Normal Voice, No Airway Compromise , Other (He has dentures) Head: Normocephalic Neck: Normal Inspection, Supple, Other (He complains of soreness in the right side of the neck area and over the carotid artery however it does not appear to have any asymmetry compared to the left side, I cannot palpate any lymphadenopathy, it seems to be soft tissue soreness, there is no bruit) Respiratory/Chest: No Respiratory Distress, Lungs Clear, Normal Breath Sounds Cardiovascular: Regular Rate, Rhythm, No Murmur GI/Abdominal: Soft, Other (Enlarged) Back Exam: Decreased Range of Motion Extremities: Normal Inspection, Other (The left knee does not suggest any marked effusion, there is no erythema of the skin, he is tender at the insertion area of the MCL over the distal femur and even that quadriceps muscle , it does not appear to be particularly swollen either edge is very tender on palpation, this is the area that hurts if he tries to extend his knee. There are no other acute findings.) Neurological: Alert, Oriented Psychiatric: Normal Affect, Normal Mood Skin Exam: Warm, Dry ED TRAUMA EXTREMITY PROCEDURES - Additional/Other Procedure(s) Other (Free Text) Procedure(s): 6 inch Tomasz was applied by the provider to the left knee and fitted and dispensed from the ER Course - Vital Signs Last Recorded V/S: Last Vital Signs Temp 98.5 F 12/04/18 21:26 Pulse 77 12/04/18 21:26 Resp 20 12/04/18 21:26 BP 176/74 H 12/04/18 21:26 Pulse Ox 93 L 12/04/18 21:26 - Orders/Labs/Meds Orders: Active Orders 24 hr Category Date Time Status Knee Min 4V Lt [CR] Stat Exams 12/04/18 22:10 Taken Meds: Medications Discontinued Medications Generic Name Dose Route Start Last Admin Trade Name Freq PRN Reason Stop Dose Admin Oxycodone/Acetaminophen 1 tab 12/04/18 23:17 Percocet 325-5 Mg PO 12/04/18 23:18 ONETIME ONE Departure - Departure Time of Disposition: 23:20 Disposition: Home, Self-Care 01 Condition: Fair Clinical Impression: Strain of left knee Qualifiers: Encounter type: initial encounter Qualified Code(s): S86.912A - Strain of unspecified muscle(s) and tendon(s) at lower leg level, left leg, initial encounter Medial collateral ligament sprain of knee Qualifiers: Encounter type: initial encounter Laterality: left Qualified Code(s): S83.412A - Sprain of medial collateral ligament of left knee, initial encounter - Discharge Information *PRESCRIPTION DRUG MONITORING PROGRAM REVIEWED*: Yes *COPY OF PRESCRIPTION DRUG MONITORING REPORT IN PATIENT DK: No Prescriptions: Hydrocodone/Acetaminophen [Hydrocodon-Acetaminophen 5-325] 1 each PO Q6H PRN # 15 tablet PRN Reason: Pain Instructions: Medial Collateral Knee Ligament Sprain Referrals: Andrew Nick MD [Primary Care Provider] - Forms: ED Department Discharge Additional Instructions: Take the medicine as needed for pain, use heat to that area, avoid squatting or sitting on a low stool and having to get up, use the Tomasz wrap during the day but didn't take it off at nighttime, follow-up with your family doctor this week for recheck, return to the ER if needed - My Orders Last 24 Hours: My Active Orders 12/04/18 22:10 Knee Min 4V Lt [CR] Stat - Assessment/Plan Last 24 Hours: My Active Orders 12/04/18 22:10 Knee Min 4V Lt [CR] Stat
[2018-12-04] MEDS ORDERED: Acetaminophen/oxyCODONE 325-5 MG Tab PO ONE (23:17)
--- NOTE | 2018-12-07 09:18 | CR ---
Left knee: Four views of the left knee were obtained. Comparison: No prior knee exam. Knee prosthesis is seen. Metallic foreign body projected anterior to the knee. Mild vascular calcification is noted. Calcification is noted off the medial femoral epicondyle which appears old. No acute fracture or dislocation is seen. Impression: 1. Metallic foreign body within the anterior aspect above the knee. 2. Knee prosthesis and other incidental findings. 3. Nothing acute is appreciated. Diagnostic code #2
== END 2018-12-04 23:30 | disposition home or self-care (01) ==
LOC: JD.ED 21:13
DX: S83.412A Sprain of medial collateral ligament of left knee, initial encounter (principal); I12.9 Hypertensive chronic kidney disease with stage 1 through stage 4 chronic kidney disease, or unspecified chronic kidney disease; N18.9 Chronic kidney disease, unspecified; I25.10 Atherosclerotic heart disease of native coronary artery without angina pectoris; E78.00 Pure hypercholesterolemia, unspecified; J44.9 Chronic obstructive pulmonary disease, unspecified; E11.22 Type 2 diabetes mellitus with diabetic chronic kidney disease; Z79.899 Other long term (current) drug therapy; Z95.4 Presence of other heart-valve replacement
CPT/HCPCS: 73564; 99283; A9270

== ENCOUNTER 2019-04-27 05:20 | Inpatient (IN) | payer MEDICARE, BC ==
[2019-04-27] MEDS ORDERED: Albuterol/Ipratropium 3.0-0.5 MG/3 ML Neb Soln NEB ONE (05:58)
--- NOTE | 2019-04-27 06:15 | EDM.PDOC ---
ED HPI GENERAL MEDICAL PROBLEM - General Chief Complaint: Respiratory Problem Stated Complaint: COUGH SOB Time Seen by Provider: 04/27/19 05:37 Source of Information: Reports: Patient, Family () History Limitations: Reports: No Limitations - History of Present Illness INITIAL COMMENTS - FREE TEXT/NARRATIVE: Mr. Rosado is a very pleasant 79-year-old man with numerous medical problems including coronary artery disease, COPD, obstructive sleep apnea, diabetes, and chronic kidney disease, who states that he has had a cough productive of brown and white sputum, dyspnea at rest and on exertion, and wheezing, for about one week. No recent fever, chest pain, palpitations, nausea, vomiting, constipation , diarrhea, or urinary symptoms. The patient states that he saw his PCP this past 04/25/2019. He states that no tests were done, and that he was diagnosed with a viral URI. He states that he was prescribed prednisone and of recent with codeine cough syrup. He states that his symptoms have only worsened. In addition, the patient has been taking his albuterol MDI with a spacer as needed, in addition to his usual pulmonary medicines. The patient denies previous similar symptoms. The patient's PCP is Dr. Andrew Nick. - Related Data Allergies Allergy/AdvReac Type Severity Reaction Status Date / Time No Known Allergies Allergy Verified 04/27/19 05:33 Home Meds: Home Meds Albuterol [Proventil Neb Soln] 2.5 mg NEB Q6HR PRN 01/27/16 [History] Albuterol/Ipratropium [DuoNeb 3.0-0.5 MG/3 ML] 2.5 mg NEB Q6HR PRN 01/27/16 [ History] Fluticasone/Salmeterol [Advair Diskus 500-50] 1 puff INH BID 01/27/16 [History] Furosemide [Lasix] 40 mg PO DAILY 01/27/16 [History] Gabapentin [Neurontin] 300 mg PO BID 01/27/16 [History] Losartan [Cozaar] 100 mg PO DAILY 01/27/16 [History] Metoprolol Succinate [Toprol XL] 50 mg PO QAM 01/27/16 [History] Pravastatin [Pravachol] 80 mg PO DAILY 01/27/16 [History] Psyllium Husk [Metamucil] 1 cap PO BID 01/27/16 [History] Tamsulosin [Flomax] 0.4 mg PO BEDTIME 01/27/16 [History] Montelukast [Singulair] 10 mg PO DAILY 08/22/17 [History] Theophylline [Anders-24] 300 mg PO BID 08/22/17 [History] Albuterol Sulfate [Proair Hfa] 2 puff INH Q4H PRN 04/27/19 [History] Allopurinol [Zyloprim] 100 mg PO DAILY 04/27/19 [History] Aspirin [Halfprin] 81 mg PO DAILY 04/27/19 [History] Azithromycin 250 mg PO DAILY 04/27/19 [History] Codeine/guaiFENesin [Robitussin AC] 5 mg PO Q4H PRN 04/27/19 [History] Diclofenac Sodium [Voltaren 1% Gel] 1 applic TOP BID 04/27/19 [History] Docusate Sodium 200 mg PO BEDTIME 04/27/19 [History] Metoprolol Succinate [Toprol Xl] 100 mg PO QPM 04/27/19 [History] Multivitamin [Multivitamins] 1 tab PO DAILY 04/27/19 [History] Spironolactone [Aldactone] 25 mg PO DAILY 04/27/19 [History] Umeclidinium Brm/Vilanterol Tr [Anoro Ellipta 62.5-25 MCG] 1 puff INH DAILY [History] hydrALAZINE [Apresoline] 25 mg PO QID 04/27/19 [History] metFORMIN [Glucophage XR] 1,000 mg PO BID 04/27/19 [History] predniSONE [Prednisone] 40 mg PO DAILY 04/27/19 [History] Past Medical History Cardiovascular History: Reports: CAD, High Cholesterol, Hypertension, PVD. Denies: [place] Respiratory History: Reports: COPD, Sleep Apnea (nightly CPAP 3) Gastrointestinal History: Reports: Colon Polyp, Other (See Below) (Spastic colon ) Genitourinary History: Reports: BPH, Chronic Renal Insuffiency Musculoskeletal History: Reports: Osteoarthritis, Other (See Below) (DDD) Neurological History: Reports: Neuropathy, Peripheral Endocrine/Metabolic History: Reports: Diabetes, Type II, Obesity/BMI 30+ - Infectious Disease History Infectious Disease History: Reports: Measles, Mumps, Rheumatic Fever, Shingles, Other (See Below) Other Infectious Disease History: [place] - Past Surgical History HEENT Surgical History: Reports: Cataract Surgery (bilateral), Eye Surgery ( Right cornea transplant x 2) Cardiovascular Surgical History: Reports: Carotid Endarterectomy (right), Valve Replacement (Bioprosthetic aortic valve 01/17/2015) GI Surgical History: Reports: Appendectomy, Cholecystectomy (around 1999) Neurological Surgical History: Reports: Lumbar Spine (x 3, incl fusion x 1) Musculoskeletal Surgical History: Reports: Knee Replacement (bilateral) Social & Family History - Family History Family Medical History: Noncontributory - Tobacco Use Smoking Status *Q: Never Smoker Years of Tobacco use: 10 Packs/Tins Daily: 2 Month/Year Tobacco Last Used: Quit 1959 - Caffeine Use Caffeine Use: Reports: Coffee Other Caffeine Use: 1/day - Alcohol Use Alcohol Use History: Yes Alcohol Use Frequency: Socially - Recreational Drug Use Recreational Drug Use: No - Living Situation & Occupation Living situation: Reports: , with Spouse Occupation: Retired ED ROS GENERAL - Review of Systems Review Of Systems: ROS reveals no pertinent complaints other than HPI. ED EXAM, GENERAL - Physical Exam Exam: See Below Exam Limited By: No Limitations General Appearance: Alert, WD/WN, No Apparent Distress Eye Exam: Bilateral Eye: EOMI, Normal Inspection Ears: Normal External Exam, Hearing Grossly Normal Nose: Normal Inspection Throat/Mouth: Normal Inspection, Normal Lips, Normal Voice, No Airway Compromise Head: Atraumatic, Normocephalic Neck: Normal Inspection, Full Range of Motion Respiratory/Chest: No Accessory Muscle Use, Decreased Breath Sounds, Wheezing ( expiratory), Prolonged Expiration. No: Crackles, Rhonchi, Stridor Cardiovascular: Normal Peripheral Pulses, Regular Rate, Rhythm, No Gallop, No JVD, No Murmur, No Rub Peripheral Pulses: 4+: Radial (L), Radial (R) GI/Abdominal: Normal Bowel Sounds, Soft, Non-Tender, No Organomegaly, No Distention, No Abnormal Bruit, No Mass (Male) Exam: Deferred Rectal (Males) Exam: Deferred Back Exam: Normal Inspection, Full Range of Motion, NT Extremities: Normal Range of Motion, Normal Capillary Refill, Other (Trace to 1 + pitting pretibial edema BLEs) Neurological: Alert, Oriented, Normal Cognition, No Motor/Sensory Deficits, Other (somnolent - dozed off 2 or 3 times during my interview) Psychiatric: Normal Affect Skin Exam: Warm, Dry, Intact, Normal Color, No Rash EKG INTERPRETATION EKG Date: 04/27/19 Time: 05:52 Rhythm: NSR Rate (Beats/Min): 98 [place]: Normal P-Wave: Enlarged (LAE. 1 AVB) QRS: Other (Late transition) ST-T: Normal QT: Normal Comparison: No Change (06/09/2019) Course - Vital Signs Last Recorded V/S: Last Vital Signs Temp 37.2 C 04/27/19 07:15 Pulse 92 04/27/19 07:15 Resp 20 04/27/19 07:15 BP 140/61 04/27/19 07:15 Pulse Ox 92 L 04/27/19 07:15 - Orders/Labs/Meds Orders: Active Orders 24 hr Category Date Time Status EKG Documentation Completion [RC] STAT Care 04/27/19 05:46 Active RT Aerosol Therapy [RC] ASDIRECTED Care 04/27/19 05:58 Active Chest 2V [CR] Stat Exams 04/27/19 05:46 Taken CULTURE BLOOD [BC] Stat Lab 04/27/19 06:03 Received CULTURE BLOOD [BC] Stat Lab 04/27/19 06:12 Received Blood Culture x2 Reflex Set [OM.PC] Stat Oth 04/27/19 05:46 Ordered Labs: Laboratory Tests 04/27/19 04/27/19 04/27/19 Range/Units 06:03 06:03 06:03 WBC 18.43 H (4.23-9.07) K/mm3 RBC 3.78 L (4.63-6.08) M/mm3 Hgb 10.5 L D (13.7-17.5) gm/dl Hct 32.4 L (40.1-51.0) % MCV 85.7 D (79.0-92.2) fl MCH 27.8 (25.7-32.2) pg MCHC 32.4 (32.2-35.5) g/dl RDW Std Deviation 49.7 H (35.1-43.9) fL Plt Count 324 (163-337) K/mm3 MPV 9.3 L (9.4-12.3) fl Neutrophils % (Manual) 85 H (40-60) % Band Neutrophils % 0 (0-10) % Lymphocytes % (Manual) 7 L (20-40) % Atypical Lymphs % 0 % Monocytes % (Manual) 8 (2-10) % Eosinophils % (Manual) 0 L (0.8-7.0) % Basophils % (Manual) 0 L (0.2-1.2) Platelet Estimate Adequate Poikilocytosis 1+ slight Anisocytosis 1+ slight RBC Morph Comment Not Reportable D-Dimer, Quantitative 0.20 (0.19-0.50) mg/L Puncture Site ABG pH (7.35-7.45) ABG pCO2 (35.0-45.0) mmHg ABG pO2 (80.0-100.0) mmHg ABG HCO3 (22.0-26.0) meq/L ABG O2 Saturation (96.0-97.0) % ABG Base Excess (-2-2.0) Eloy Test A-a Gradient mmHg O2 Delivery Device Oxygen Flow Rate FiO2 (21.00-100.00) % Sodium 130 L (136-145) mEq/L Potassium 3.7 (3.5-5.1) mEq/L Chloride 93 L (98-107) mEq/L Carbon Dioxide 30 (21-32) mEq/L Anion Gap 10.7 (5-15) BUN 29 H (7-18) mg/dL Creatinine 1.0 (0.7-1.3) mg/dL Est Cr Clr Drug Dosing 57.84 mL/min Estimated GFR (MDRD) > 60 (>60) mL/min BUN/Creatinine Ratio 29.0 H (14-18) Glucose 136 H (83-115) mg/dL Lactic Acid (0.4-2.0) mmol/L Calcium 8.1 L (8.5-10.1) mg/dL Total Bilirubin 0.4 (0.2-1.0) mg/dL AST 17 (15-37) U/L ALT 22 (16-63) U/L Alkaline Phosphatase 76 (46-116) U/L Troponin I < 0.017 (0.00-0.056) ng/mL NT-Pro-B Natriuret Pep (0-450) pg/mL Total Protein 7.0 (6.4-8.2) g/dl Albumin 2.9 L (3.4-5.0) g/dl Globulin 4.1 gm/dL Albumin/Globulin Ratio 0.7 L (1-2) 04/27/19 04/27/19 04/27/19 Range/Units 06:03 06:05 06:12 WBC (4.23-9.07) K/mm3 RBC (4.63-6.08) M/mm3 Hgb (13.7-17.5) gm/dl Hct (40.1-51.0) % MCV (79.0-92.2) fl MCH (25.7-32.2) pg MCHC (32.2-35.5) g/dl RDW Std Deviation (35.1-43.9) fL Plt Count (163-337) K/mm3 MPV (9.4-12.3) fl Neutrophils % (Manual) (40-60) % Band Neutrophils % (0-10) % Lymphocytes % (Manual) (20-40) % Atypical Lymphs % % Monocytes % (Manual) (2-10) % Eosinophils % (Manual) (0.8-7.0) % Basophils % (Manual) (0.2-1.2) Platelet Estimate Poikilocytosis Anisocytosis RBC Morph Comment D-Dimer, Quantitative (0.19-0.50) mg/L Puncture Site Lt radial ABG pH 7.45 (7.35-7.45) ABG pCO2 43.5 (35.0-45.0) mmHg ABG pO2 56.0 L (80.0-100.0) mmHg ABG HCO3 30.0 H (22.0-26.0) meq/L ABG O2 Saturation 83.1 L (96.0-97.0) % ABG Base Excess 5.9 H (-2-2.0) Eloy Test Positive A-a Gradient 39 mmHg O2 Delivery Device Room air Oxygen Flow Rate 0.0 FiO2 21.00 (21.00-100.00) % Sodium (136-145) mEq/L Potassium (3.5-5.1) mEq/L Chloride (98-107) mEq/L Carbon Dioxide (21-32) mEq/L Anion Gap (5-15) BUN (7-18) mg/dL Creatinine (0.7-1.3) mg/dL Est Cr Clr Drug Dosing mL/min Estimated GFR (MDRD) (>60) mL/min BUN/Creatinine Ratio (14-18) Glucose (83-115) mg/dL Lactic Acid 1.2 (0.4-2.0) mmol/L Calcium (8.5-10.1) mg/dL Total Bilirubin (0.2-1.0) mg/dL AST (15-37) U/L ALT (16-63) U/L Alkaline Phosphatase (46-116) U/L Troponin I (0.00-0.056) ng/mL NT-Pro-B Natriuret Pep 759 H (0-450) pg/mL Total Protein (6.4-8.2) g/dl Albumin (3.4-5.0) g/dl Globulin gm/dL Albumin/Globulin Ratio (1-2) Meds: Medications Discontinued Medications Generic Name Dose Route Start Last Admin Trade Name Freq PRN Reason Stop Dose Admin Albuterol/Ipratropium 3 ml 04/27/19 05:58 04/27/19 06:14 Duoneb 3.0-0.5 Mg/3 Ml NEB 04/27/19 05:59 3 ml ONETIME ONE Administration Furosemide 40 mg 04/27/19 07:11 04/27/19 07:30 Lasix IVPUSH 04/27/19 07:12 40 mg NOW ONE Administration Azithromycin 500 mg/ Sodium 250 mls @ 250 mls/hr 04/27/19 06:58 04/27/19 08: 00 Chloride IV 04/27/19 07:57 250 mls/hr ONETIME STA Administration Ceftriaxone Sodium 1 gm/ 100 mls @ 200 mls/hr 04/27/19 06:58 04/27/19 07:10 Sodium Chloride IV 04/27/19 07:27 200 mls/hr ONETIME STA Administration - Re-Assessments/Exams Free Text/Narrative Re-Assessment/Exam: 04/27/19 05:59 The patient is likely suffering from a COPD exacerbation, as he has expiratory wheezes with prolonged exhalation and diminished breath sounds. I have ordered a DuoNeb for immediate treatment, along with extensive workup that includes blood work, an arterial blood gas, blood cultures, an influenza swab, chest x- ray, and an ECG. It is my understanding that the patient is currently on oral prednisone, but I will check with the patient's nurse to confirm that. 04/27/19 06:22 Notified by the respiratory therapist that she placed the patient on 3 L of O2 per NC for an oxygen saturation as low as 85%. The patient's ABG represents a chronic (fully compensated) metabolic alkalosis and hypoxemia. 04/27/19 06:47 2-view chest radiograph reviewed. The cardiac silhouette is within normal limits , but there appears to be increased pulmonary vascular congestion consistent with CHF. No pleural effusions are seen, but fluid is seen in the horizontal fissure on both the PA and lateral view, and in the oblique fissure on the lateral view. Bibasilar infiltrates, worse on the left than the right, are possible, but could be due to vascular congestion. No pneumothorax. Cervical spine fusion hardware incidentally noted. Sternotomy wires incidentally noted. Formal read per the Radiologist pending. 04/27/19 06:59 Given the patient's chest x-ray findings, I believe it would be prudent to treat him as if he has community-acquired pneumonia. I have therefore ordered 1 g of IV Rocephin and 500 mg of IV azithromycin. Blood cultures were obtained earlier. I will also order IV Lasix for apparent CHF. 04/27/19 07:42 The patient's CBC is remarkable for a WBC count elevated at 18.43, but with 0% bandemia. His H/H is mildly depressed at 10.5/32.4, with the remainder of his CBC being unremarkable. His CMP is remarkable for a sodium mildly depressed at 130, and a BUN mildly elevated at 29 with a normal creatinine. His blood glucose is mildly elevated at 136. His albumin is depressed at 2.9. The remainder of his CMP is unremarkable. History pulmonary and is undetectably low. His lactic acid is within normal limits at 1.2. His D-dimer is within normal limits at 0.20. His BNP is mildly elevated at 759. His influenza swab returned negative. While the patient is wheezing, his ABG indicates that he is not suffering from a COPD exacerbation. Nevertheless, think it is prudent to continue to treat him for COPD exacerbation with albuterol as needed, along with treatment for pneumonia with IV antibiotics and CHF with diuretics. The patient will need to be admitted to the hospital. 04/27/19 08:[address] Shin here in the ED. She accepted the patient for admission to the hospital. Departure - Departure Time of Disposition: 08:36 Disposition: Admitted As Inpatient 68 Condition: Good Clinical Impression: Community acquired pneumonia, New onset of congestive heart failure, COPD exacerbation - Discharge Information *PRESCRIPTION DRUG MONITORING PROGRAM REVIEWED*: Not Applicable *COPY OF PRESCRIPTION DRUG MONITORING REPORT IN PATIENT DK: Not Applicable Referrals: Andrew Nick MD [Primary Care Provider] - - My Orders Last 24 Hours: My Active Orders 04/27/19 05:46 EKG Documentation Completion [RC] STAT Chest 2V [CR] Stat Blood Culture x2 Reflex Set [OM.PC] Stat 04/27/19 05:58 RT Aerosol Therapy [RC] ASDIRECTED 04/27/19 06:03 CULTURE BLOOD [BC] Stat 04/27/19 06:12 CULTURE BLOOD [BC] Stat - Assessment/Plan Last 24 Hours: My Active Orders 04/27/19 05:46 EKG Documentation Completion [RC] STAT Chest 2V [CR] Stat Blood Culture x2 Reflex Set [OM.PC] Stat 04/27/19 05:58 RT Aerosol Therapy [RC] ASDIRECTED 04/27/19 06:03 CULTURE BLOOD [BC] Stat 04/27/19 06:12 CULTURE BLOOD [BC] Stat
[2019-04-27] MEDS ORDERED: Azithromycin 500 MG in Sodium Chloride 0.9% 250 ML IV STA (06:58)
[2019-04-27] MEDS ORDERED: cefTRIAXone 1 GM in Sodium Chloride 0.9% 100 ML IV STA (06:58)
[2019-04-27] MEDS ORDERED: Furosemide 40 MG/4 ML VIAL IVPUSH ONE (07:11)
--- NOTE | 2019-04-27 08:52 | CR ---
Chest: Two views of the chest are obtained. Comparison: Prior chest x-ray of 08/22/17. Increased perihilar densities are seen as well as more focal density within the left base. Heart size is normal. Previous sternotomy is noted. Previous cervical spine surgery is seen. Bony structures otherwise have mild degenerative change scattered within the spine. Anterior wedge deformity noted within the upper lumbar spine which is stable. Impression: 1. Findings as noted above likely representing bronchitis and left lower lobe pneumonia. Diagnostic code #3
--- NOTE | 2019-04-27 09:10 | PCM.HP.2 ---
H&P History of Present Illness - General Date of Service: 04/27/19 - History of Present Illness Initial Comments - Free Text/Narative: This is a 79 year old who came in to the ED for worsening shortness of breath 7 days ago congestion, coughing, greyish brown and white colored sputum, malaise , chills, coughing spells that were increasingly more productive Associated with worsening LE edema, worsening CLAR[place] No orthopnea, PND No sick contacts flu shot April 05 BL LE edema lower back Pain Score (Numeric/FACES): 3 - Related Data Allergies/Adverse Reactions: Allergies Allergy/AdvReac Type Severity Reaction Status Date / Time No Known Allergies Allergy Verified 04/27/19 05:33 Home Medications: Home Meds Albuterol [Proventil Neb Soln] 2.5 mg NEB Q4HR PRN 01/27/16 [History] Albuterol/Ipratropium [DuoNeb 3.0-0.5 MG/3 ML] 2.5 mg NEB Q6HR PRN 01/27/16 [ History] Fluticasone/Salmeterol [Advair Diskus 500-50] 1 puff INH BID 01/27/16 [History] Furosemide [Lasix] 40 mg PO DAILY 01/27/16 [History] Gabapentin [Neurontin] 300 mg PO BID 01/27/16 [History] Losartan [Cozaar] 100 mg PO DAILY 01/27/16 [History] Metoprolol Succinate [Toprol XL] 50 mg PO QAM 01/27/16 [History] Pravastatin [Pravachol] 80 mg PO DAILY 01/27/16 [History] Psyllium Husk [Metamucil] 1 cap PO BID 01/27/16 [History] Tamsulosin [Flomax] 0.4 mg PO BEDTIME 01/27/16 [History] Montelukast [Singulair] 10 mg PO BEDTIME 08/22/17 [History] Albuterol Sulfate [Proair Hfa] 2 puff INH Q4H PRN 04/27/19 [History] Allopurinol [Zyloprim] 100 mg PO DAILY 04/27/19 [History] Aspirin [Halfprin] 81 mg PO DAILY 04/27/19 [History] Azithromycin 250 mg PO DAILY 04/27/19 [History] Codeine/guaiFENesin [Robitussin AC] 5 ml PO Q4H PRN 04/27/19 [History] Diclofenac Sodium [Voltaren 1% Gel] 1 applic TOP BID 04/27/19 [History] Docusate Sodium 200 mg PO BEDTIME PRN 04/27/19 [History] Metoprolol Succinate [Toprol Xl] 100 mg PO QPM 04/27/19 [History] Multivitamin [Multivitamins] 1 tab PO DAILY 04/27/19 [History] Spironolactone [Aldactone] 25 mg PO DAILY 04/27/19 [History] Theophylline Anhydrous [Theochron] 300 mg PO BID 04/27/19 [History] Umeclidinium Brm/Vilanterol Tr [Anoro Ellipta 62.5-25 MCG] 1 puff INH DAILY [History] hydrALAZINE [Apresoline] 25 mg PO QID 04/27/19 [History] metFORMIN HCl [Metformin HCl] 1,000 mg PO BID 04/27/19 [History] predniSONE [Prednisone] 40 mg PO DAILY 04/27/19 [History] Past Medical History Cardiovascular History: Reports: CAD, High Cholesterol, Hypertension, PVD. Denies: [place] Respiratory History: Reports: COPD, Sleep Apnea (nightly CPAP 3) Gastrointestinal History: Reports: Colon Polyp, Other (See Below) (Spastic colon ) Other Gastrointestinal History: Polyps removed Genitourinary History: Reports: BPH, Chronic Renal Insuffiency Musculoskeletal History: Reports: Osteoarthritis, Other (See Below) (DDD) Neurological History: Reports: Neuropathy, Peripheral Endocrine/Metabolic History: Reports: Diabetes, Type II, Obesity/BMI 30+ - Infectious Disease History Infectious Disease History: Reports: Measles, Mumps, Rheumatic Fever, Shingles, Other (See Below) Other Infectious Disease History: [place] - Past Surgical History HEENT Surgical History: Reports: Cataract Surgery (bilateral), Eye Surgery ( Right cornea transplant x 2) Cardiovascular Surgical History: Reports: Carotid Endarterectomy (right), Valve Replacement (Bioprosthetic aortic valve 01/17/2015) GI Surgical History: Reports: Appendectomy, Cholecystectomy (around 1999) Neurological Surgical History: Reports: Lumbar Spine (x 3, incl fusion x 1) Musculoskeletal Surgical History: Reports: Knee Replacement (bilateral) Social & Family History - Family History Family Medical History: Noncontributory - Tobacco Use Smoking Status *Q: Never Smoker Years of Tobacco use: 10 Packs/Tins Daily: 2 Month/Year Tobacco Last Used: Quit 1959 - Caffeine Use Caffeine Use: Reports: Coffee Other Caffeine Use: 1/day - Recreational Drug Use Recreational Drug Use: No - Living Situation & Occupation Living situation: Reports: , with Spouse Occupation: Retired H&P Review of Systems - Review of Systems: Review Of Systems: See Below General: Reports: Chills, Malaise, Weakness, Fatigue. Denies: Fever, Night Sweats, Diaphoresis, Decreased Appetite HEENT: Denies: Ear Pain, Eye Pain, Headaches, Hearing Changes, Rhinitis, Post Nasal Drip, Sinus Congestion, Sore Throat Pulmonary: Reports: Shortness of Breath, Wheezing, Cough, Sputum. Denies: Pleuritic Chest Pain Cardiovascular: Reports: Dyspnea on Exertion, Edema. Denies: Chest Pain, Palpitations, Orthopnea, PND, Lightheadedness, Syncope Gastrointestinal: Denies: Abdominal Pain, Anorexia, Black Stool, Bloody Stool, Constipation, Diarrhea, Decreased Appetite, Nausea, Vomiting Genitourinary: Denies: Dysuria, Frequency, Burning, Pain, Urgency Musculoskeletal: Denies: Joint Swelling, Muscle Pain Skin: Denies: Cyanosis, Jaundice, Mottled, Pallor, Diaphoresis, Bruising, Pruritis, Rash, Erythema Psychiatric: Denies: Confusion, Depression, Mood Lability, Anxiety Neurological: Denies: Confusion, Dizziness, Headache, Numbness, Paresthesia, Seizure, Syncope Exam - Exam Exam: See Below - Vital Signs Vital Signs: Last Vital Signs Temp 37.2 C 04/27/19 07:15 Pulse 92 04/27/19 07:15 Resp 20 04/27/19 07:15 BP 140/61 04/27/19 07:15 Pulse Ox 92 L 04/27/19 07:15 Weight: 104.326 kg - Exam General: Alert, Oriented, Cooperative, Mild Distress HEENT: Conjunctiva Clear, EACs Clear, EOMI, Hearing Intact, Mucosa Moist & [place] , Pupils Equal Neck: Supple, Trachea Midline. No: Lymphadenopathy Lungs: Decreased Breath Sounds, Crackles, Rales, Wheezing Cardiovascular: Regular Rate, Regular Rhythm. No: Bradycardia, Tachycardia, Systolic Murmur, Diastolic Murmur, Rubs, Gallop/S3, Gallop/S4 GI/Abdominal Exam: Normal Bowel Sounds, Soft, Non-Tender, No Distention. No: Guarding, Rebound Extremities: Normal Capillary Refill, Pedal Edema Neuro Extensive - Mental Status: Alert, Oriented x3, Normal Mood/Affect, Normal Cognition Psychiatric: Alert, Normal Affect, Normal Mood - Patient Data Lab Results Last 24 hrs: Laboratory Results - last 24 hr 04/27/19 04/27/19 04/27/19 Range/Units 06:03 06:03 06:03 WBC 18.43 H (4.23-9.07) K/mm3 RBC 3.78 L (4.63-6.08) M/mm3 Hgb 10.5 L D (13.7-17.5) gm/dl Hct 32.4 L (40.1-51.0) % MCV 85.7 D (79.0-92.2) fl MCH 27.8 (25.7-32.2) pg MCHC 32.4 (32.2-35.5) g/dl RDW Std Deviation 49.7 H (35.1-43.9) fL Plt Count 324 (163-337) K/mm3 MPV 9.3 L (9.4-12.3) fl Neutrophils % (Manual) 85 H (40-60) % Band Neutrophils % 0 (0-10) % Lymphocytes % (Manual) 7 L (20-40) % Atypical Lymphs % 0 % Monocytes % (Manual) 8 (2-10) % Eosinophils % (Manual) 0 L (0.8-7.0) % Basophils % (Manual) 0 L (0.2-1.2) Platelet Estimate Adequate Poikilocytosis 1+ slight Anisocytosis 1+ slight RBC Morph Comment Not Reportable D-Dimer, Quantitative 0.20 (0.19-0.50) mg/L Puncture Site ABG pH (7.35-7.45) ABG pCO2 (35.0-45.0) mmHg ABG pO2 (80.0-100.0) mmHg ABG HCO3 (22.0-26.0) meq/L ABG O2 Saturation (96.0-97.0) % ABG Base Excess (-2-2.0) Eloy Test A-a Gradient mmHg O2 Delivery Device Oxygen Flow Rate FiO2 (21.00-100.00) % Sodium 130 L (136-145) mEq/L Potassium 3.7 (3.5-5.1) mEq/L Chloride 93 L (98-107) mEq/L Carbon Dioxide 30 (21-32) mEq/L Anion Gap 10.7 (5-15) BUN 29 H (7-18) mg/dL Creatinine 1.0 (0.7-1.3) mg/dL Est Cr Clr Drug Dosing 57.84 mL/min Estimated GFR (MDRD) > 60 (>60) mL/min BUN/Creatinine Ratio 29.0 H (14-18) Glucose 136 H (83-115) mg/dL Lactic Acid (0.4-2.0) mmol/L Calcium 8.1 L (8.5-10.1) mg/dL Total Bilirubin 0.4 (0.2-1.0) mg/dL AST 17 (15-37) U/L ALT 22 (16-63) U/L Alkaline Phosphatase 76 (46-116) U/L Troponin I < 0.017 (0.00-0.056) ng/mL NT-Pro-B Natriuret Pep (0-450) pg/mL Total Protein 7.0 (6.4-8.2) g/dl Albumin 2.9 L (3.4-5.0) g/dl Globulin 4.1 gm/dL Albumin/Globulin Ratio 0.7 L (1-2) 04/27/19 04/27/19 04/27/19 Range/Units 06:03 06:05 06:12 WBC (4.23-9.07) K/mm3 RBC (4.63-6.08) M/mm3 Hgb (13.7-17.5) gm/dl Hct (40.1-51.0) % MCV (79.0-92.2) fl MCH (25.7-32.2) pg MCHC (32.2-35.5) g/dl RDW Std Deviation (35.1-43.9) fL Plt Count (163-337) K/mm3 MPV (9.4-12.3) fl Neutrophils % (Manual) (40-60) % Band Neutrophils % (0-10) % Lymphocytes % (Manual) (20-40) % Atypical Lymphs % % Monocytes % (Manual) (2-10) % Eosinophils % (Manual) (0.8-7.0) % Basophils % (Manual) (0.2-1.2) Platelet Estimate Poikilocytosis Anisocytosis RBC Morph Comment D-Dimer, Quantitative (0.19-0.50) mg/L Puncture Site Lt radial ABG pH 7.45 (7.35-7.45) ABG pCO2 43.5 (35.0-45.0) mmHg ABG pO2 56.0 L (80.0-100.0) mmHg ABG HCO3 30.0 H (22.0-26.0) meq/L ABG O2 Saturation 83.1 L (96.0-97.0) % ABG Base Excess 5.9 H (-2-2.0) Eloy Test Positive A-a Gradient 39 mmHg O2 Delivery Device Room air Oxygen Flow Rate 0.0 FiO2 21.00 (21.00-100.00) % Sodium (136-145) mEq/L Potassium (3.5-5.1) mEq/L Chloride (98-107) mEq/L Carbon Dioxide (21-32) mEq/L Anion Gap (5-15) BUN (7-18) mg/dL Creatinine (0.7-1.3) mg/dL Est Cr Clr Drug Dosing mL/min Estimated GFR (MDRD) (>60) mL/min BUN/Creatinine Ratio (14-18) Glucose (83-115) mg/dL Lactic Acid 1.2 (0.4-2.0) mmol/L Calcium (8.5-10.1) mg/dL Total Bilirubin (0.2-1.0) mg/dL AST (15-37) U/L ALT (16-63) U/L Alkaline Phosphatase (46-116) U/L Troponin I (0.00-0.056) ng/mL NT-Pro-B Natriuret Pep 759 H (0-450) pg/mL Total Protein (6.4-8.2) g/dl Albumin (3.4-5.0) g/dl Globulin gm/dL Albumin/Globulin Ratio (1-2) Result Diagrams: 05/03/19 05:11 05/03/19 05:11 Jermain Results Last 24 hrs: Microbiology 04/27/19 06:35 Influenza Type A Antigen Screen - Final Nasopharyngeal Swab NEGATIVE INFLUENZA A VIRUS AG REFERENCE RANGE: NEGATIVE Influenza Type B Antigen Screen - Final NEGATIVE INFLUENZA B VIRUS AG REFERENCE RANGE: NEGATIVE - Problem List (1) Community acquired pneumonia SNOMED Code(s): 953251307 ICD Code: J18.9 - PNEUMONIA, UNSPECIFIED ORGANISM Status: Acute Current Visit: Yes (2) COPD without exacerbation SNOMED Code(s): 70999104 ICD Code: J44.9 - CHRONIC OBSTRUCTIVE PULMONARY DISEASE, UNSPECIFIED Status : Acute Current Visit: Yes (3) Dyslipidemia SNOMED Code(s): 062733430 ICD Code: E78.5 - HYPERLIPIDEMIA, UNSPECIFIED Status: Acute Current Visit : Yes (4) Gout SNOMED Code(s): 85726990 ICD Code: M10.9 - GOUT, UNSPECIFIED Status: Acute Current Visit: Yes (5) Diabetes mellitus SNOMED Code(s): 30131346 ICD Code: E11.9 - TYPE 2 DIABETES MELLITUS WITHOUT COMPLICATIONS Status: Acute Current Visit: Yes (6) Coronary artery disease SNOMED Code(s): 61867260 ICD Code: I25.10 - ATHSCL HEART DISEASE OF [place] CORONARY ARTERY W/O ANG PCTRS Status: Acute Current Visit: Yes (7) Aortic valve replaced SNOMED Code(s): 6174736057408, 33114392, 1099752036196 ICD Code: Z95.2 - PRESENCE OF PROSTHETIC HEART VALVE Status: Acute Current Visit: Yes (8) Chronic lower back pain SNOMED Code(s): 482420329 ICD Code: M54.5 - LOW BACK PAIN; G89.29 - OTHER CHRONIC PAIN Status: Acute Current Visit: Yes (9) H/O carotid endarterectomy SNOMED Code(s): 564522426, 884989480 ICD Code: Z98.890 - OTHER SPECIFIED POSTPROCEDURAL STATES Status: Acute Current Visit: Yes (10) Ex-smoker SNOMED Code(s): 2440562 ICD Code: Z87.891 - PERSONAL HISTORY OF NICOTINE DEPENDENCE Status: Acute Current Visit: Yes (11) Venous insufficiency of both lower extremities SNOMED Code(s): 857077282 ICD Code: I87.2 - VENOUS INSUFFICIENCY (CHRONIC) (PERIPHERAL) Status: Acute Current Visit: No (12) Hypoxia SNOMED Code(s): 168071079 ICD Code: R09.02 - HYPOXEMIA Status: Resolved Priority: High Current Visit: No (13) Hyponatremia SNOMED Code(s): 84265230 ICD Code: E87.1 - HYPO-OSMOLALITY AND HYPONATREMIA Status: Acute Current Visit: Yes (14) Leukocytosis SNOMED Code(s): 606999020, 797383487 ICD Code: D72.829 - ELEVATED WHITE BLOOD CELL COUNT, UNSPECIFIED Status: Acute Current Visit: Yes (15) Acute kidney injury superimposed on chronic kidney disease SNOMED Code(s): 56634150 ICD Code: N17.9 - ACUTE KIDNEY FAILURE, UNSPECIFIED; N18.9 - CHRONIC KIDNEY DISEASE, UNSPECIFIED Status: Acute Current Visit: Yes (16) Acute kidney injury SNOMED Code(s): 89803084, 20421749 ICD Code: N17.9 - ACUTE KIDNEY FAILURE, UNSPECIFIED Status: Acute Current Visit: Yes (17) Heart failure SNOMED Code(s): 15408914 ICD Code: I50.9 - HEART FAILURE, UNSPECIFIED Status: Acute Current Visit : Yes (18) BPH (benign prostatic hyperplasia) SNOMED Code(s): 384705442 ICD Code: N40.0 - BENIGN PROSTATIC HYPERPLASIA WITHOUT LOWER URINRY TRACT SYMP Status: Acute Current Visit: Yes Problem List Initiated/Reviewed/Updated: Yes Assessment/Plan Comment:: Community acquired pneumonia with hypoxemia in the setting of COPD CURB 65- 2 (9.2% mortality) PSI- 107, class IV (9.3%) Confounded by COPD Pulse ox goal >88% PLAN - Discontinue home azithromycin - Levaquin x 5 days - Ipratropium q6h - Guaifenesin scheduled - Pulmicort if home inhalers do not have inhaled steroids - RT evaluation and treatment COPD Home management with Umeclidinium Brm/Vilanterol, Fluticasone/Salmeterol, Montelukast, Theophylline, Albuterol Sulfate PRN Might be confounding CAP picture Treat CAP 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, unknown EF Home management with lasix and spironolactone Losartan and metoprolol PLAN - Increase spironolactone from 25 BID to 50 BID - Change lasix to IV - Daily weights - Telemetry 48 hours - New echocardiogram - Request records - Fluid and sodium restricted diet Hypertension No acute issues Home management with losartan and hydralazine PLAN - Continue home medications Dyslipidemia No acute issues Home pravastatin 80mg PLAN - Continue home statin Gout No acute issues PLAN - Continue home allopurinol Diabetes mellitus, unknown HbA1c Home management with metformin PLAN - Hold PO home medications - Moderate sliding scale - Accuchecks before meals and sleep - Pending home medications - New HbA1c Aortic valve replaced Bio-prosthetic Replaced 3 years ago No acute issues Chronic lower back pain No acute issues Home topical diclofenac PLAN -Pain management PRN H/O carotid endarterectomy No acute issues PLAN - Continue home statin and aspirin BPH No acute urinary retention PLAN - continue home tamsulosin Ex-smoker 1-2ppd x 12 years, quit >50 yrs ago No acute issues PROPHYLAXIS DVT- lovenox GI- not indicated CODE STATUS: DNR DISPOSITION: Patient will be admitted on scheduled breathing treatments and ATBs, discharge likely in next 48 hours depending on response.
[2019-04-27] MEDS ORDERED: Budesonide 0.5 MG/2 ML Neb Susp NEB SCH (12:03)
[2019-04-27 12:05] LABS: HEMOGLOBIN A1C 8.6 % (4.50-6.20)
[2019-04-27] MEDS: hydrALAZINE 25 MG Tab PO SCH ×3 (13:02→20:15)
[2019-04-27] MEDS: Furosemide 40 MG/4 ML VIAL IVPUSH SCH ×3 (13:02→21:19)
[2019-04-27] MEDS: Levofloxacin 750 MG Tab PO SCH (13:02)
[2019-04-27] MEDS: Enoxaparin 40 MG/0.4 ML Syringe SUBCUT SCH (13:02)
[2019-04-27] MEDS: Ipratropium 0.02% 0.5 MG/2.5 ML Neb Soln NEB SCH ×2 (14:24→20:20)
[2019-04-27] MEDS ORDERED: Furosemide 40 MG/4 ML VIAL IVPUSH SCH (15:00)
[2019-04-27] MEDS: guaiFENesin 600 MG Tab.ER PO SCH ×2 (15:40→20:14)
[2019-04-27] MEDS: Benzonatate 100 MG Cap PO SCH ×2 (15:40→20:15)
[2019-04-27] MEDS: Losartan 100 MG Tab PO SCH (16:20)
[2019-04-27] MEDS: Psyllium Husk Powder Sugar Free 3.4 GM Packet PO SCH (20:14)
[2019-04-27] MEDS: Docusate Sodium 100 MG Cap PO SCH (20:15)
[2019-04-27] MEDS: Tamsulosin 0.4 MG Cap.ER PO SCH (20:15)
[2019-04-27] MEDS: Spironolactone 25 MG Tab PO SCH (20:15)
[2019-04-27] MEDS: Gabapentin 300 MG Cap PO SCH (20:16)
[2019-04-27] MEDS ORDERED: Formoterol/Mometasone 200-5 MCG 8.8 GM Inhaler IH SCH (21:00)
[2019-04-27] MEDS ORDERED: THEOPHYLLINE 300 MG PO SCH (21:00)
[2019-04-27] MEDS: Formoterol/Mometasone 200-5 MCG 8.8 GM Inhaler IH SCH (21:38)
[2019-04-28] MEDS: Ipratropium 0.02% 0.5 MG/2.5 ML Neb Soln NEB SCH ×4 (02:08→20:17)
[2019-04-28] MEDS: Formoterol/Mometasone 200-5 MCG 8.8 GM Inhaler IH SCH ×2 (05:18→20:17)
[2019-04-28] MEDS: Furosemide 40 MG/4 ML VIAL IVPUSH SCH ×3 (06:05→21:18)
[2019-04-28] MEDS: guaiFENesin 600 MG Tab.ER PO SCH ×3 (08:51→21:15)
[2019-04-28] MEDS: hydrALAZINE 25 MG Tab PO SCH ×4 (08:51→21:15)
[2019-04-28] MEDS: Montelukast 10 MG Tab PO SCH (08:51)
[2019-04-28] MEDS: Multivitamins,Therapeutic Tab PO SCH (08:51)
[2019-04-28] MEDS: Gabapentin 300 MG Cap PO SCH ×2 (08:52→21:14)
[2019-04-28] MEDS: Spironolactone 25 MG Tab PO SCH ×2 (08:52→21:13)
[2019-04-28] MEDS: Allopurinol 100 MG Tab PO SCH (08:52)
[2019-04-28] MEDS: Benzonatate 100 MG Cap PO SCH ×3 (08:52→21:15)
[2019-04-28] MEDS: Aspirin 81 MG Tab.EC PO SCH (08:53)
[2019-04-28] MEDS: Enoxaparin 40 MG/0.4 ML Syringe SUBCUT SCH (08:54)
[2019-04-28] MEDS: Theophylline 300 MG Tab.ER PO SCH ×2 (08:55→21:17)
[2019-04-28] MEDS ORDERED: Metoprolol Succinate 50 MG Tab.ER PO SCH (09:00)
[2019-04-28] MEDS ORDERED: ANORO ELLIPTA INH SCH (09:00)
[2019-04-28] MEDS: Psyllium Husk Powder Sugar Free 3.4 GM Packet PO SCH ×2 (09:03→21:13)
[2019-04-28] MEDS: Metoprolol Succinate 50 MG Tab.ER PO SCH ×2 (09:12→17:53)
[2019-04-28] MEDS: Levofloxacin 750 MG Tab PO SCH (14:10)
[2019-04-28] MEDS: Losartan 100 MG Tab PO SCH (17:53)
[2019-04-28] MEDS ORDERED: Magnesium Sulfate/Water 4 GM in Premix Bag 1 BAG IV ONE (19:09)
[2019-04-28] MEDS: Docusate Sodium 100 MG Cap PO SCH (21:14)
[2019-04-28] MEDS: Tamsulosin 0.4 MG Cap.ER PO SCH (21:14)
[2019-04-29] MEDS: Ipratropium 0.02% 0.5 MG/2.5 ML Neb Soln NEB SCH ×4 (02:39→21:03)
[2019-04-29] MEDS: Furosemide 40 MG/4 ML VIAL IVPUSH SCH ×4 (05:12→22:53)
[2019-04-29] MEDS ORDERED: Formoterol/Mometasone 200-5 MCG 8.8 GM Inhaler IH SCH (09:00)
[2019-04-29] MEDS: Benzonatate 100 MG Cap PO SCH ×3 (09:23→20:43)
[2019-04-29] MEDS: Multivitamins,Therapeutic Tab PO SCH (09:23)
[2019-04-29] MEDS: Enoxaparin 40 MG/0.4 ML Syringe SUBCUT SCH (09:23)
[2019-04-29] MEDS: Spironolactone 25 MG Tab PO SCH ×2 (09:24→20:42)
[2019-04-29] MEDS: Allopurinol 100 MG Tab PO SCH (09:24)
[2019-04-29] MEDS: Gabapentin 300 MG Cap PO SCH ×2 (09:24→20:40)
[2019-04-29] MEDS: Aspirin 81 MG Tab.EC PO SCH (09:24)
[2019-04-29] MEDS: Metoprolol Succinate 50 MG Tab.ER PO SCH ×2 (09:24→17:20)
[2019-04-29] MEDS: hydrALAZINE 25 MG Tab PO SCH ×4 (09:26→20:41)
[2019-04-29] MEDS: Montelukast 10 MG Tab PO SCH (09:27)
[2019-04-29] MEDS: Theophylline 300 MG Tab.ER PO SCH ×2 (09:27→20:44)
[2019-04-29] MEDS: guaiFENesin 600 MG Tab.ER PO SCH ×3 (09:27→20:44)
[2019-04-29] MEDS: Psyllium Husk Powder Sugar Free 3.4 GM Packet PO SCH ×2 (09:28→20:44)
[2019-04-29] MEDS: Budesonide 0.5 MG/2 ML Neb Susp NEB SCH ×2 (09:31→21:00)
[2019-04-29] MEDS: Acetylcysteine 20% 200 MG/ML 4 ML Nebulizer Soln SDV NEB SCH ×3 (09:31→16:49)
--- NOTE | 2019-04-29 10:52 | CR ---
Chest: Two views of the chest were obtained. Comparison: Prior chest x-ray of 04/27/19. Continuing increased density within the left base. No appreciable change is seen from previous exam. No new parenchymal densities are seen. Heart size is normal. Previous sternotomy is noted. Prior cervical spine surgery is noted. Impression: 1. Continued increased density within the left base. No appreciable change from previous exam. 2. No new abnormality is appreciated. Diagnostic code #3
[2019-04-29] MEDS: Insulin Lispro 100 Units/ML 3 ML Vial SUBCUT SCH ×4 (12:13→22:52)
[2019-04-29] MEDS: Levofloxacin 750 MG Tab PO SCH (12:14)
--- NOTE | 2019-04-29 17:00 | PCM.PN ---
- General Info Date of Service: 04/28/19 Subjective Update: No fevers or chills Did not get much sleep due to the coughing Eating ok SOB is worse No reports from nursing - Patient Data Vitals - Most Recent: Last Vital Signs Temp 36.9 C 04/29/19 15:06 Pulse 92 04/29/19 15:06 Resp 20 04/29/19 15:06 BP 125/57 L 04/29/19 15:08 Pulse Ox 94 L 04/29/19 16:53 Weight - Most Recent: 102.648 kg - Exam Quality Assessment: Supplemental Oxygen General: Alert, Oriented, Cooperative, Mild Distress HEENT: Pupils Equal, Pupils Reactive, EOMI Neck: Supple, Trachea Midline. No: Lymphadenopathy Lungs: Decreased Breath Sounds, Crackles, Rales, Wheezing GI/Abdominal Exam: No: Hepatomegaly Back Exam: Normal Inspection. No: CVA Tenderness (L), CVA Tenderness (R) Extremities: Pedal Edema Skin: Warm, Dry Neurological: No New Focal Deficit Psy/Mental Status: Alert, Normal Affect, Normal Mood - Problem List & Annotations (1) Community acquired pneumonia SNOMED Code(s): 062421664 Code(s): J18.9 - PNEUMONIA, UNSPECIFIED ORGANISM Status: Acute Current Visit: Yes (2) Hypomagnesemia SNOMED Code(s): 533621909 Code(s): E83.42 - HYPOMAGNESEMIA Status: Acute Current Visit: Yes (3) COPD without exacerbation SNOMED Code(s): 00972974 Code(s): J44.9 - CHRONIC OBSTRUCTIVE PULMONARY DISEASE, UNSPECIFIED Status : Acute Current Visit: Yes (4) Coronary artery disease SNOMED Code(s): 41004780 Code(s): I25.10 - ATHSCL HEART DISEASE OF [place] CORONARY ARTERY W/O ANG PCTRS Status: Acute Current Visit: Yes (5) Diabetes mellitus SNOMED Code(s): 60025454 Code(s): E11.9 - TYPE 2 DIABETES MELLITUS WITHOUT COMPLICATIONS Status: Acute Current Visit: Yes (6) Dyslipidemia SNOMED Code(s): 706066303 Code(s): E78.5 - HYPERLIPIDEMIA, UNSPECIFIED Status: Acute Current Visit : Yes (7) Ex-smoker SNOMED Code(s): 8445794 Code(s): Z87.891 - PERSONAL HISTORY OF NICOTINE DEPENDENCE Status: Acute Current Visit: Yes (8) Gout SNOMED Code(s): 32288607 Code(s): M10.9 - GOUT, UNSPECIFIED Status: Acute Current Visit: Yes (9) H/O carotid endarterectomy SNOMED Code(s): 310871436, 944540842 Code(s): Z98.890 - OTHER SPECIFIED POSTPROCEDURAL STATES Status: Acute Current Visit: Yes (10) Hyponatremia SNOMED Code(s): 57043332 Code(s): E87.1 - HYPO-OSMOLALITY AND HYPONATREMIA Status: Acute Current Visit: Yes (11) Hypoxia SNOMED Code(s): 503881352 Code(s): R09.02 - HYPOXEMIA Status: Resolved Priority: High Current Visit: No - Problem List Review Problem List Initiated/Reviewed/Updated: Yes - Plan Plan:: Community acquired pneumonia with hypoxemia in the setting of COPD CURB 65- 2 (9.2% mortality) PSI- 107, class IV (9.3%) Confounded by COPD Pulse ox goal >88% If no improvement by tonight will start Tamiflu PLAN - Levaquin x 5 days - Start mucomyst q 4 - Start pulmicort q12h - Start CPT with pulmicort neb- Place patient on BiPAP - Increase tessalon perles to 200 - Continue guaifenessin - Ipratropium q6h - RT treatment - RSV panel COPD Home management with Umeclidinium Brm/Vilanterol, Fluticasone/Salmeterol, Montelukast, Theophylline, Albuterol Sulfate PRN Might be confounding CAP picture Treat CAP 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, unknown EF Home management with lasix and spironolactone Losartan and metoprolol PLAN - Increase spironolactone from 25 BID to 50 BID - Continue IV lasix - Daily weights - Telemetry 48 hours - New echocardiogram pending - Request records - Fluid and sodium restricted diet Hypertension No acute issues Home management with losartan and hydralazine PLAN - Continue home medications Dyslipidemia No acute issues Home pravastatin 80mg PLAN - Continue home statin Gout No acute issues PLAN - Continue home allopurinol Diabetes mellitus, [id number] Home management with metformin PLAN - Hold PO home medications - Moderate sliding scale - Accuchecks before meals and sleep - Pending home medications Aortic valve replaced Bio-prosthetic Replaced 3 years ago No acute issues Chronic lower back pain No acute issues Home topical diclofenac PLAN -Pain management PRN H/O carotid endarterectomy No acute issues PLAN - Continue home statin and aspirin BPH No acute urinary retention PLAN - continue home tamsulosin Ex-smoker 1-2ppd x 12 years, quit >50 yrs ago No acute issues PROPHYLAXIS DVT- lovenox GI- not indicated CODE STATUS: DNR DISPOSITION: Patient will remain in inpatient service due to worsening of respiratory status , discharge unlikely in the next 24-48h.
--- NOTE | 2019-04-29 17:00 | PCM.PN ---
- General Info Date of Service: 04/29/19 Subjective Update: Feeling better but still short of breath Slept a little more Tolerating diet - Patient Data Vitals - Most Recent: Last Vital Signs Temp 36.9 C 04/29/19 15:06 Pulse 92 04/29/19 15:06 Resp 20 04/29/19 15:06 BP 125/57 L 04/29/19 15:08 Pulse Ox 94 L 04/29/19 16:53 Weight - Most Recent: 102.648 kg - Exam General: Alert, Oriented, Moderate Distress HEENT: Pupils Equal, Pupils Reactive, EOMI Neck: Supple. No: Lymphadenopathy Lungs: Decreased Breath Sounds, Crackles, Rales, Rhonchi, Wheezing Cardiovascular: Regular Rate, Regular Rhythm. No: Murmurs, Gallops, Rubs GI/Abdominal Exam: Normal Bowel Sounds, No Organomegaly, No Distention. No: Guarding, Tender Extremities: No Pedal Edema - Problem List & Annotations (1) Community acquired pneumonia SNOMED Code(s): 325533241 Code(s): J18.9 - PNEUMONIA, UNSPECIFIED ORGANISM Status: Acute Current Visit: Yes (2) COPD exacerbation SNOMED Code(s): 072127956 Code(s): J44.1 - CHRONIC OBSTRUCTIVE PULMONARY DISEASE W (ACUTE) EXACERBATION Status: Acute Current Visit: Yes (3) Acute kidney injury SNOMED Code(s): 70086911, 19089690 Code(s): N17.9 - ACUTE KIDNEY FAILURE, UNSPECIFIED Status: Acute Current Visit: Yes (4) Aortic valve replaced SNOMED Code(s): 3975908059405, 60229982, 7756469500428 Code(s): Z95.2 - PRESENCE OF PROSTHETIC HEART VALVE Status: Acute Current Visit: Yes (5) BPH (benign prostatic hyperplasia) SNOMED Code(s): 729217497 Code(s): N40.0 - BENIGN PROSTATIC HYPERPLASIA WITHOUT LOWER URINRY TRACT SYMP Status: Acute Current Visit: Yes (6) Gout SNOMED Code(s): 52979204 Code(s): M10.9 - GOUT, UNSPECIFIED Status: Acute Current Visit: Yes (7) H/O carotid endarterectomy SNOMED Code(s): 500595968, 087227571 Code(s): Z98.890 - OTHER SPECIFIED POSTPROCEDURAL STATES Status: Acute Current Visit: Yes (8) Hypomagnesemia SNOMED Code(s): 029303834 Code(s): E83.42 - HYPOMAGNESEMIA Status: Acute Current Visit: Yes (9) Hyponatremia SNOMED Code(s): 08392354 Code(s): E87.1 - HYPO-OSMOLALITY AND HYPONATREMIA Status: Acute Current Visit: Yes (10) Hypoxia SNOMED Code(s): 569049266 Code(s): R09.02 - HYPOXEMIA Status: Resolved Priority: High Current Visit: No - Problem List Review Problem List Initiated/Reviewed/Updated: Yes - Plan Plan:: Community acquired pneumonia with hypoxemia in the setting of COPD CURB 65- 2 (9.2% mortality) PSI- 107, class IV (9.3%) Confounded by COPD Pulse ox goal >88% PLAN - Levaquin x 5 days - Tamiflu - Continue pulmicort q12h, tessalon perles, guaifenessin, ipratropium - Continue CPT with pulmicort neb - Increase tessalon perles to 200 - RT treatment - F/U RSV panel COPD Home management with Umeclidinium Brm/Vilanterol, Fluticasone/Salmeterol, Montelukast, Theophylline, Albuterol Sulfate PRN Might be confounding CAP picture Treat CAP 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, unknown EF Home management with lasix and spironolactone Losartan and metoprolol PLAN - Increase spironolactone from 25 BID to 50 BID - Continue IV lasix - Daily weights - Telemetry 48 hours - New echocardiogram pending - Request records - Fluid and sodium restricted diet Hypertension No acute issues Home management with losartan and hydralazine PLAN - Continue home medications Dyslipidemia No acute issues Home pravastatin 80mg PLAN - Continue home statin Gout No acute issues PLAN - Continue home allopurinol Diabetes mellitus, [id number] Home management with metformin PLAN - Hold PO home medications - Moderate sliding scale - Accuchecks before meals and sleep Aortic valve replaced Bio-prosthetic Replaced 3 years ago No acute issues Chronic lower back pain No acute issues Home topical diclofenac PLAN -Pain management PRN H/O carotid endarterectomy No acute issues PLAN - Continue home statin and aspirin BPH No acute urinary retention PLAN - continue home tamsulosin Ex-smoker 1-2ppd x 12 years, quit >50 yrs ago No acute issues PROPHYLAXIS DVT- lovenox GI- not indicated CODE STATUS: DNR DISPOSITION: Patient will remain in inpatient service due to worsening of respiratory status , discharge unlikely in the next 24-48h.
[2019-04-29] MEDS: Losartan 100 MG Tab PO SCH (17:20)
[2019-04-29] MEDS ORDERED: Acetylcysteine 20% 200 MG/ML 4 ML Nebulizer Soln SDV NEB SCH (19:00)
[2019-04-29] MEDS: Docusate Sodium 100 MG Cap PO SCH (20:42)
[2019-04-29] MEDS: Tamsulosin 0.4 MG Cap.ER PO SCH (20:42)
[2019-04-30] MEDS: Ipratropium 0.02% 0.5 MG/2.5 ML Neb Soln NEB SCH ×4 (02:18→20:41)
[2019-04-30] MEDS: Furosemide 40 MG/4 ML VIAL IVPUSH SCH ×3 (06:35→22:04)
[2019-04-30] MEDS: Insulin Lispro 100 Units/ML 3 ML Vial SUBCUT SCH ×4 (08:29→22:01)
[2019-04-30] MEDS: Benzonatate 100 MG Cap PO SCH ×3 (08:30→22:05)
[2019-04-30] MEDS: Metoprolol Succinate 50 MG Tab.ER PO SCH ×2 (08:31→18:43)
[2019-04-30] MEDS: Montelukast 10 MG Tab PO SCH (08:31)
[2019-04-30] MEDS: hydrALAZINE 25 MG Tab PO SCH ×4 (08:31→22:08)
[2019-04-30] MEDS: Multivitamins,Therapeutic Tab PO SCH (08:31)
[2019-04-30] MEDS: Allopurinol 100 MG Tab PO SCH (08:31)
[2019-04-30] MEDS: guaiFENesin 600 MG Tab.ER PO SCH ×3 (08:32→22:07)
[2019-04-30] MEDS: Spironolactone 25 MG Tab PO SCH ×2 (08:32→22:05)
[2019-04-30] MEDS: Gabapentin 300 MG Cap PO SCH ×2 (08:32→22:08)
[2019-04-30] MEDS: Aspirin 81 MG Tab.EC PO SCH (08:33)
[2019-04-30] MEDS: Enoxaparin 40 MG/0.4 ML Syringe SUBCUT SCH (08:33)
[2019-04-30] MEDS: Theophylline 300 MG Tab.ER PO SCH ×2 (08:34→22:10)
[2019-04-30] MEDS: Psyllium Husk Powder Sugar Free 3.4 GM Packet PO SCH ×2 (08:34→22:09)
[2019-04-30] MEDS: Budesonide 0.5 MG/2 ML Neb Susp NEB SCH ×2 (09:23→20:41)
[2019-04-30] MEDS: Levofloxacin 750 MG Tab PO SCH (13:52)
[2019-04-30] MEDS: Acetaminophen 325 MG Tab PO PRN (14:45)
[2019-04-30] MEDS ORDERED: methylPREDNISolone Sodium Succinate 125 MG/2 ML SDV IVPUSH ONE (15:28)
[2019-04-30] MEDS: Losartan 100 MG Tab PO SCH (16:07)
[2019-04-30] MEDS: Docusate Sodium 100 MG Cap PO SCH (22:07)
[2019-04-30] MEDS: Tamsulosin 0.4 MG Cap.ER PO SCH (22:08)
[2019-04-30] MEDS: methylPREDNISolone Sodium Succinate 40 MG/1 ML SDV IVPUSH SCH (22:09)
[2019-05-01] MEDS: Ipratropium 0.02% 0.5 MG/2.5 ML Neb Soln NEB SCH ×4 (02:40→21:35)
[2019-05-01] MEDS: methylPREDNISolone Sodium Succinate 40 MG/1 ML SDV IVPUSH SCH ×4 (04:29→21:24)
[2019-05-01] MEDS: Furosemide 40 MG/4 ML VIAL IVPUSH SCH ×3 (06:42→21:24)
[2019-05-01] MEDS: Insulin Lispro 100 Units/ML 3 ML Vial SUBCUT SCH ×4 (08:17→21:32)
[2019-05-01] MEDS: guaiFENesin 600 MG Tab.ER PO SCH ×3 (08:18→21:25)
[2019-05-01] MEDS: Allopurinol 100 MG Tab PO SCH (08:18)
[2019-05-01] MEDS: Aspirin 81 MG Tab.EC PO SCH (08:18)
[2019-05-01] MEDS: Spironolactone 25 MG Tab PO SCH ×2 (08:18→21:25)
[2019-05-01] MEDS: Gabapentin 300 MG Cap PO SCH ×2 (08:18→21:26)
[2019-05-01] MEDS: Multivitamins,Therapeutic Tab PO SCH (08:18)
[2019-05-01] MEDS: hydrALAZINE 25 MG Tab PO SCH ×4 (08:18→21:26)
[2019-05-01] MEDS: Benzonatate 100 MG Cap PO SCH ×3 (08:18→21:25)
[2019-05-01] MEDS: Enoxaparin 40 MG/0.4 ML Syringe SUBCUT SCH (08:19)
[2019-05-01] MEDS: Metoprolol Succinate 50 MG Tab.ER PO SCH ×2 (08:19→17:21)
[2019-05-01] MEDS: Psyllium Husk Powder Sugar Free 3.4 GM Packet PO SCH ×2 (08:19→21:27)
[2019-05-01] MEDS: Montelukast 10 MG Tab PO SCH (08:19)
[2019-05-01] MEDS: Theophylline 300 MG Tab.ER PO SCH ×2 (08:21→21:25)
--- NOTE | 2019-05-01 08:39 | PCM.PN ---
- General Info Date of Service: 05/01/19 Subjective Update: BM yesterday Feeling ok Ambulating Tolerating diet Slept through the night - Patient Data Weight - Most Recent: 102.648 kg Jermain Results Last 24 Hours: Microbiology 04/27/19 06:12 Aerobic Blood Culture - Preliminary Blood - Venous - Lab Draw NO GROWTH AFTER 4 DAYS Anaerobic Blood Culture - Preliminary NO GROWTH AFTER 4 DAYS 04/27/19 06:03 Aerobic Blood Culture - Preliminary Blood - Venous NO GROWTH AFTER 4 DAYS Anaerobic Blood Culture - Preliminary NO GROWTH AFTER 4 DAYS 04/29/19 09:00 Gram Stain - Final Sputum - Expectorated Sputum Culture - Preliminary Med Orders - Current: Current Medications Acetaminophen (Tylenol) 650 mg PO Q4H PRN PRN Reason: Pain (Mild 1-3)/fever Last Admin: 04/30/19 14:45 Dose: 650 mg Allopurinol (Zyloprim) 100 mg PO DAILY PENDING SALE TO [facility] Last Admin: 05/01/19 08:18 Dose: 100 mg Aspirin (Halfprin) 81 mg PO DAILY PENDING SALE TO [facility] Last Admin: 05/01/19 08:18 Dose: 81 mg Benzonatate (Tessalon Perles) 200 mg PO TID PENDING SALE TO [facility] Last Admin: 05/01/19 08:18 Dose: 200 mg Budesonide (Pulmicort) 0.5 mg NEB Q12HR PENDING SALE TO [facility] Last Admin: 04/30/19 20:41 Dose: 0.5 mg Docusate Sodium (Colace) 200 mg PO BEDTIME PENDING SALE TO [facility] Last Admin: 04/30/19 22:07 Dose: 200 mg Enoxaparin Sodium (Lovenox) 40 mg SUBCUT DAILY PENDING SALE TO [facility] Last Admin: 05/01/19 08:19 Dose: 40 mg Furosemide (Lasix) 40 mg IVPUSH Q8H PENDING SALE TO [facility] Last Admin: 05/01/19 06:42 Dose: 40 mg Gabapentin (Neurontin) 300 mg PO BID PENDING SALE TO [facility] Last Admin: 05/01/19 08:18 Dose: 300 mg Guaifenesin (Mucinex) 600 mg PO TID PENDING SALE TO [facility] Last Admin: 05/01/19 08:18 Dose: 600 mg Hydralazine HCl (Apresoline) 25 mg PO QID PENDING SALE TO [facility] Last Admin: 05/01/19 08:18 Dose: 25 mg Insulin Human Lispro (Humalog) 0 unit SUBCUT QIDACANDBED PENDING SALE TO [facility]; Protocol Last Admin: 05/01/19 08:17 Dose: 4 unit Ipratropium [place] (Atrovent) 0.5 mg NEB Q6HRRT PENDING SALE TO [facility] Last Admin: 05/01/19 02:40 Dose: 0.5 mg Levofloxacin (Levaquin) 750 mg PO Q24H PENDING SALE TO [facility] Last Admin: 04/30/19 13:52 Dose: 750 mg Losartan Potassium (Cozaar) 100 mg PO WITHDINNER PENDING SALE TO [facility] Last Admin: 04/30/19 16:07 Dose: 100 mg Methylprednisolone Sodium Succinate (Solu-Medrol) 40 mg IVPUSH Q6H PENDING SALE TO [facility] Last Admin: 05/01/19 08:20 Dose: 40 mg Metoprolol Succinate (Toprol Xl) 50 mg PO DAILY PENDING SALE TO [facility] Last Admin: 05/01/19 08:19 Dose: 50 mg Metoprolol Succinate (Toprol Xl) 100 mg PO QPM PENDING SALE TO [facility] Last Admin: 04/30/19 18:43 Dose: 100 mg Montelukast Sodium (Singulair) 10 mg PO DAILY PENDING SALE TO [facility] Last Admin: 05/01/19 08:19 Dose: 10 mg Multivitamins (Thera) 1 each PO DAILY PENDING SALE TO [facility] Last Admin: 05/01/19 08:18 Dose: 1 each Pravastatin 80 Mg 0 each PO DAILY PENDING SALE TO [facility] Last Admin: 05/01/19 08:20 Dose: 1 each Psyllium [place] (Metamucil Sugar Free) 1 packet PO BID PENDING SALE TO [facility] Last Admin: 05/01/19 08:19 Dose: 1 packet Spironolactone (Aldactone) 25 mg PO BID PENDING SALE TO [facility] Last Admin: 05/01/19 08:18 Dose: 25 mg Tamsulosin HCl (Flomax) 0.4 mg PO BEDTIME PENDING SALE TO [facility] Last Admin: 04/30/19 22:08 Dose: 0.4 mg Theophylline (Theophylline Anhydrous) 300 mg PO BID PENDING SALE TO [facility] Last Admin: 05/01/19 08:21 Dose: 300 mg Discontinued Medications Acetylcysteine (Mucomyst 20%) 1,000 mg NEB Q4HR PENDING SALE TO [facility] Last Admin: 04/29/19 16:49 Dose: 800 mg Acetylcysteine (Mucomyst 20%) 800 mg NEB Q4H PENDING SALE TO [facility] Last Admin: 04/29/19 21:00 Dose: 800 mg Albuterol/Ipratropium (Duoneb 3.0-0.5 Mg/3 Ml) 3 ml NEB ONETIME ONE Stop: 04/27/19 05:59 Last Admin: 04/27/19 06:14 Dose: 3 ml Benzonatate (Tessalon Perles) 100 mg PO TID PENDING SALE TO [facility] Last Admin: 04/28/19 21:15 Dose: 100 mg Budesonide (Pulmicort) 0.5 mg NEB BID PENDING SALE TO [facility] Last Admin: 04/27/19 12:15 Dose: 0.5 mg Furosemide (Lasix) 40 mg IVPUSH NOW ONE Stop: 04/27/19 07:12 Last Admin: 04/27/19 07:30 Dose: 40 mg Furosemide (Lasix) 40 mg IVPUSH TID PENDING SALE TO [facility] Azithromycin 500 mg/ Sodium (Chloride) 250 mls @ 250 mls/hr IV ONETIME STA Stop: 04/27/19 07:57 Last Admin: 04/27/19 08:00 Dose: 250 mls/hr Ceftriaxone Sodium 1 gm/ (Sodium Chloride) 100 mls @ 200 mls/hr IV ONETIME STA Stop: 04/27/19 07:27 Last Admin: 04/27/19 07:10 Dose: 200 mls/hr Magnesium Sulfate 4 gm/ Premix 50 mls @ 12.5 mls/hr IV ONETIME ONE Stop: 04/28/19 23:08 Last Admin: 04/28/19 21:08 Dose: 12.5 mls/hr Methylprednisolone Sodium Succinate (Solu-Medrol) 125 mg IVPUSH ONETIME ONE Stop: 04/30/19 15:29 Last Admin: 04/30/19 16:07 Dose: 125 mg Metoprolol Succinate (Toprol Xl) 150 mg PO DAILY PENDING SALE TO [facility] Last Admin: 04/28/19 14:28 Dose: Not Given Mometasone Furoate/Formoterol Fumar (Dulera 200-5 Mcg) 2 puff IH BIDRT PENDING SALE TO [facility] Last Admin: 04/28/19 20:17 Dose: 2 puff Mometasone Furoate/Formoterol Fumar (Dulera 200-5 Mcg) 2 puff IH BID PENDING SALE TO [facility] Theophylline Sr 300 (Mg Pt's Own Med) 0 each PO BID PENDING SALE TO [facility] Last Admin: 04/27/19 20:17 Dose: Not Given Anoro Ellipta ( Umeclidinium Brm/Vilanterol Tr 1 Puff ) 0 each INH DAILY PENDING SALE TO [facility] - Exam General: Alert, Oriented, Mild Distress HEENT: Pupils Equal, Pupils Reactive Neck: Supple. No: Lymphadenopathy Lungs: Decreased Breath Sounds, Crackles, Rales, Rhonchi, Wheezing (interval improvement) Cardiovascular: Regular Rate, Regular Rhythm. No: Murmurs, Gallops, Rubs GI/Abdominal Exam: Normal Bowel Sounds, Soft, Non-Tender Back Exam: Normal Inspection. No: CVA Tenderness (L), CVA Tenderness (R) Extremities: Normal Inspection, No Pedal Edema Neurological: No New Focal Deficit Psy/Mental Status: Alert, Normal Affect, Normal Mood - Problem List & Annotations (1) Community acquired pneumonia SNOMED Code(s): 143412604 Code(s): J18.9 - PNEUMONIA, UNSPECIFIED ORGANISM Status: Acute Current Visit: Yes (2) COPD exacerbation SNOMED Code(s): 774870616 Code(s): J44.1 - CHRONIC OBSTRUCTIVE PULMONARY DISEASE W (ACUTE) EXACERBATION Status: Acute Current Visit: Yes (3) Acute kidney injury SNOMED Code(s): 37265329, 68294363 Code(s): N17.9 - ACUTE KIDNEY FAILURE, UNSPECIFIED Status: Acute Current Visit: Yes (4) Aortic valve replaced SNOMED Code(s): 6389203481853, 97742097, 1792758925957 Code(s): Z95.2 - PRESENCE OF PROSTHETIC HEART VALVE Status: Acute Current Visit: Yes (5) BPH (benign prostatic hyperplasia) SNOMED Code(s): 288352583 Code(s): N40.0 - BENIGN PROSTATIC HYPERPLASIA WITHOUT LOWER URINRY TRACT SYMP Status: Acute Current Visit: Yes (6) Diabetes mellitus SNOMED Code(s): 85881128 Code(s): E11.9 - TYPE 2 DIABETES MELLITUS WITHOUT COMPLICATIONS Status: Acute Current Visit: Yes (7) Dyslipidemia SNOMED Code(s): 308512104 Code(s): E78.5 - HYPERLIPIDEMIA, UNSPECIFIED Status: Acute Current Visit : Yes (8) Ex-smoker SNOMED Code(s): 2670466 Code(s): Z87.891 - PERSONAL HISTORY OF NICOTINE DEPENDENCE Status: Acute Current Visit: Yes (9) Gout SNOMED Code(s): 94830229 Code(s): M10.9 - GOUT, UNSPECIFIED Status: Acute Current Visit: Yes (10) H/O carotid endarterectomy SNOMED Code(s): 752755243, 406966367 Code(s): Z98.890 - OTHER SPECIFIED POSTPROCEDURAL STATES Status: Acute Current Visit: Yes (11) Heart failure SNOMED Code(s): 73957935 Code(s): I50.9 - HEART FAILURE, UNSPECIFIED Status: Acute Current Visit: Yes (12) Hyponatremia SNOMED Code(s): 52170073 Code(s): E87.1 - HYPO-OSMOLALITY AND HYPONATREMIA Status: Acute Current Visit: Yes (13) Leukocytosis SNOMED Code(s): 126231238, 369476284 Code(s): D72.829 - ELEVATED WHITE BLOOD CELL COUNT, UNSPECIFIED Status: Acute Current Visit: Yes (14) Hypoxia SNOMED Code(s): 127914497 Code(s): R09.02 - HYPOXEMIA Status: Resolved Priority: High Current Visit: No - Problem List Review Problem List Initiated/Reviewed/Updated: Yes - Plan Plan:: Community acquired pneumonia with hypoxemia in the setting of COPD CURB 65- 2 (9.2% mortality) PSI- 107, class IV (9.3%) Confounded by COPD Pulse ox goal >88% PLAN - Levaquin and tamiflu - Continue pulmicort q12h, tessalon perles, guaifenessin, ipratropium - Continue CPT with pulmicort neb - Discontinue solumedrol - RT treatment - RT evaluation for home O2 - F/U RSV panel COPD Home management with Umeclidinium Brm/Vilanterol, Fluticasone/Salmeterol, Montelukast, Theophylline, Albuterol Sulfate PRN Might be confounding CAP picture Treat CAP 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, unknown EF Home management with lasix and spironolactone Losartan and metoprolol PLAN - Increase spironolactone from 25 BID to 50 BID - Continue IV lasix - Daily weights - Telemetry 48 hours - New echocardiogram pending - Request records - Fluid and sodium restricted diet Hypertension No acute issues Home management with losartan and hydralazine PLAN - Continue home medications Dyslipidemia No acute issues Home pravastatin 80mg PLAN - Continue home statin Gout No acute issues PLAN - Continue home allopurinol Diabetes mellitus, [id number] Home management with metformin PLAN - Hold PO home medications - Moderate sliding scale - Accuchecks before meals and sleep Aortic valve replaced Bio-prosthetic Replaced 3 years ago No acute issues Chronic lower back pain No acute issues Home topical diclofenac PLAN -Pain management PRN H/O carotid endarterectomy No acute issues PLAN - Continue home statin and aspirin BPH No acute urinary retention PLAN - continue home tamsulosin Ex-smoker 1-2ppd x 12 years, quit >50 yrs ago No acute issues PROPHYLAXIS DVT- lovenox GI- not indicated CODE STATUS: DNR DISPOSITION: Patient will remain in inpatient service due to worsening of respiratory status , discharge unlikely in the next 24-48h.
--- NOTE | 2019-05-01 08:40 | PCM.PN ---
- General Info Date of Service: 04/30/19 Subjective Update: Feeling better Slept better No BM since admission Still SOB No reports by nursing - Patient Data Weight - Most Recent: 102.648 kg - Exam General: Alert, Oriented, Cooperative, Moderate Distress HEENT: Pupils Equal, Pupils Reactive, EOMI, Mucous Membr. Moist/[place] Neck: Supple. No: Lymphadenopathy Lungs: Decreased Breath Sounds, Crackles, Rales, Rhonchi, Wheezing Cardiovascular: Regular Rhythm, Tachycardia GI/Abdominal Exam: Normal Bowel Sounds, Soft, Non-Tender, No Distention Back Exam: Normal Inspection. No: CVA Tenderness (L), CVA Tenderness (R) Extremities: No Pedal Edema Skin: Warm, Dry Neurological: No New Focal Deficit Psy/Mental Status: Alert, Normal Affect, Normal Mood - Problem List & Annotations (1) Community acquired pneumonia SNOMED Code(s): 069386600 Code(s): J18.9 - PNEUMONIA, UNSPECIFIED ORGANISM Status: Acute Current Visit: Yes (2) Acute kidney injury superimposed on chronic kidney disease SNOMED Code(s): 82576897 Code(s): N17.9 - ACUTE KIDNEY FAILURE, UNSPECIFIED; N18.9 - CHRONIC KIDNEY DISEASE, UNSPECIFIED Status: Acute Current Visit: Yes (3) Aortic valve replaced SNOMED Code(s): 5886867050077, 63199359, 9323190140402 Code(s): Z95.2 - PRESENCE OF PROSTHETIC HEART VALVE Status: Acute Current Visit: Yes (4) BPH (benign prostatic hyperplasia) SNOMED Code(s): 263328297 Code(s): N40.0 - BENIGN PROSTATIC HYPERPLASIA WITHOUT LOWER URINRY TRACT SYMP Status: Acute Current Visit: Yes (5) COPD exacerbation SNOMED Code(s): 326831678 Code(s): J44.1 - CHRONIC OBSTRUCTIVE PULMONARY DISEASE W (ACUTE) EXACERBATION Status: Acute Current Visit: Yes (6) Coronary artery disease SNOMED Code(s): 34722796 Code(s): I25.10 - ATHSCL HEART DISEASE OF [place] CORONARY ARTERY W/O ANG PCTRS Status: Acute Current Visit: Yes (7) Diabetes mellitus SNOMED Code(s): 66120178 Code(s): E11.9 - TYPE 2 DIABETES MELLITUS WITHOUT COMPLICATIONS Status: Acute Current Visit: Yes (8) Dyslipidemia SNOMED Code(s): 008727975 Code(s): E78.5 - HYPERLIPIDEMIA, UNSPECIFIED Status: Acute Current Visit : Yes (9) Ex-smoker SNOMED Code(s): 0158637 Code(s): Z87.891 - PERSONAL HISTORY OF NICOTINE DEPENDENCE Status: Acute Current Visit: Yes (10) Gout SNOMED Code(s): 07532934 Code(s): M10.9 - GOUT, UNSPECIFIED Status: Acute Current Visit: Yes (11) H/O carotid endarterectomy SNOMED Code(s): 110443460, 733028164 Code(s): Z98.890 - OTHER SPECIFIED POSTPROCEDURAL STATES Status: Acute Current Visit: Yes (12) Hypoxia SNOMED Code(s): 290230165 Code(s): R09.02 - HYPOXEMIA Status: Resolved Priority: High Current Visit: No - Problem List Review Problem List Initiated/Reviewed/Updated: Yes - Plan Plan:: Community acquired pneumonia with hypoxemia in the setting of COPD CURB 65- 2 (9.2% mortality) PSI- 107, class IV (9.3%) Confounded by COPD Pulse ox goal >88% PLAN - Levaquin and Tamiflu - Continue pulmicort q12h, tessalon perles, guaifenessin, ipratropium - Continue CPT with pulmicort neb - Increase tessalon perles to 200 - Start solumedrol - RT treatment - f/u RSV panel COPD Home management with Umeclidinium Brm/Vilanterol, Fluticasone/Salmeterol, Montelukast, Theophylline, Albuterol Sulfate PRN Might be confounding CAP picture Treat CAP 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, unknown EF Home management with lasix and spironolactone Losartan and metoprolol PLAN - Increase spironolactone from 25 BID to 50 BID - Continue IV lasix - Daily weights - Telemetry - New echocardiogram pending - Request records - Fluid and sodium restricted diet Hypertension No acute issues Home management with losartan and hydralazine PLAN - Continue home medications Dyslipidemia No acute issues Home pravastatin 80mg PLAN - Continue home statin Gout No acute issues PLAN - Continue home allopurinol Diabetes mellitus, [id number] Home management with metformin PLAN - Hold PO home medications - Moderate sliding scale - Accuchecks before meals and sleep Aortic valve replaced Bio-prosthetic Replaced 3 years ago No acute issues Chronic lower back pain No acute issues Home topical diclofenac PLAN -Pain management PRN H/O carotid endarterectomy No acute issues PLAN - Continue home statin and aspirin BPH No acute urinary retention PLAN - continue home tamsulosin Ex-smoker 1-2ppd x 12 years, quit >50 yrs ago No acute issues PROPHYLAXIS DVT- lovenox GI- not indicated CODE STATUS: DNR DISPOSITION: Patient will remain in inpatient service due to worsening of respiratory status , discharge unlikely in the next 24-48h.
[2019-05-01] MEDS: Budesonide 0.5 MG/2 ML Neb Susp NEB SCH ×2 (08:57→21:36)
[2019-05-01] MEDS: Levofloxacin 750 MG Tab PO SCH (13:56)
[2019-05-01] MEDS ORDERED: Acetylcysteine 20% 200 MG/ML 4 ML Nebulizer Soln SDV NEB SCH ×2 (16:00→21:00)
[2019-05-01] MEDS: Losartan 100 MG Tab PO SCH (17:22)
--- NOTE | 2019-05-01 18:13 | CR ---
Chest: Two views of the chest were obtained. Comparison: Previous chest x-ray of 04/29/19. Increased density within the left lung base is seen. Findings are felt to be slightly improved from previous exam. Poor inspiratory film is seen. Lungs otherwise are clear. Heart size and mediastinum are normal. Previous sternotomy is seen. Impression: 1. Slightly improving parenchymal density within the left base. 2. No new abnormality is identified. Diagnostic code #3
[2019-05-01] MEDS: Tamsulosin 0.4 MG Cap.ER PO SCH (21:25)
[2019-05-01] MEDS: Docusate Sodium 100 MG Cap PO SCH (21:25)
[2019-05-01] MEDS: Acetylcysteine 20% 200 MG/ML 4 ML Nebulizer Soln SDV NEB SCH (21:36)
[2019-05-02] MEDS: Ipratropium 0.02% 0.5 MG/2.5 ML Neb Soln NEB SCH ×2 (02:14→08:40)
[2019-05-02] MEDS: methylPREDNISolone Sodium Succinate 40 MG/1 ML SDV IVPUSH SCH ×2 (04:29→09:10)
[2019-05-02] MEDS: Furosemide 40 MG/4 ML VIAL IVPUSH SCH ×2 (06:22→15:40)
[2019-05-02] MEDS: Budesonide 0.5 MG/2 ML Neb Susp NEB SCH ×2 (08:40→20:50)
[2019-05-02] MEDS: Acetylcysteine 20% 200 MG/ML 4 ML Nebulizer Soln SDV NEB SCH (08:40)
[2019-05-02] MEDS ORDERED: Albuterol/Ipratropium 3.0-0.5 MG/3 ML Neb Soln NEB SCH ×2 (09:00→15:00)
[2019-05-02] MEDS: Insulin Lispro 100 Units/ML 3 ML Vial SUBCUT SCH ×4 (09:04→22:38)
[2019-05-02] MEDS: Enoxaparin 40 MG/0.4 ML Syringe SUBCUT SCH (09:05)
[2019-05-02] MEDS: Multivitamins,Therapeutic Tab PO SCH (09:06)
[2019-05-02] MEDS: hydrALAZINE 25 MG Tab PO SCH ×4 (09:06→22:38)
[2019-05-02] MEDS: Metoprolol Succinate 50 MG Tab.ER PO SCH ×2 (09:07→17:20)
[2019-05-02] MEDS: Gabapentin 300 MG Cap PO SCH ×2 (09:07→22:37)
[2019-05-02] MEDS: guaiFENesin 600 MG Tab.ER PO SCH ×3 (09:07→22:37)
[2019-05-02] MEDS: Montelukast 10 MG Tab PO SCH (09:07)
[2019-05-02] MEDS: Benzonatate 100 MG Cap PO SCH ×3 (09:07→22:36)
[2019-05-02] MEDS: Spironolactone 25 MG Tab PO SCH ×2 (09:07→22:37)
[2019-05-02] MEDS: Allopurinol 100 MG Tab PO SCH (09:07)
[2019-05-02] MEDS: Psyllium Husk Powder Sugar Free 3.4 GM Packet PO SCH ×2 (09:08→22:34)
[2019-05-02] MEDS: Aspirin 81 MG Tab.EC PO SCH (09:08)
[2019-05-02] MEDS: Theophylline 300 MG Tab.ER PO SCH ×2 (09:11→22:40)
[2019-05-02] MEDS: Oseltamivir 30 MG Cap PO SCH ×2 (12:19→22:37)
[2019-05-02] MEDS: Albuterol/Ipratropium 3.0-0.5 MG/3 ML Neb Soln NEB SCH ×3 (13:10→20:59)
[2019-05-02] MEDS ORDERED: Insulin Lispro 100 Units/ML 3 ML Vial SUBCUT ONE (15:23)
[2019-05-02] MEDS: Insulin Glarg,Human.Rec.Analog 100 UNIT/ML ML SUBCUT SCH (15:43)
[2019-05-02] MEDS: Losartan 25 MG Tab PO SCH (17:20)
--- NOTE | 2019-05-02 20:21 | PCM.PN ---
- General Info Date of Service: 05/02/19 Subjective Update: Had a BM yesterday Slept ok Feeling better - Patient Data Vitals - Most Recent: Last Vital Signs Temp 37.1 C 05/02/19 15:11 Pulse 87 05/02/19 17:20 Resp 20 05/02/19 15:11 BP 145/50 H 05/02/19 17:20 Pulse Ox 92 L 05/02/19 17:01 Weight - Most Recent: 102.33 kg Jermain Results Last 24 Hours: Microbiology 04/29/19 09:00 Gram Stain - Final Sputum - Expectorated Sputum Culture - Preliminary Gram Positive Cocci 04/27/19 06:12 Aerobic Blood Culture - Preliminary Blood - Venous - Lab Draw NO GROWTH AFTER 5 DAYS Anaerobic Blood Culture - Preliminary NO GROWTH AFTER 5 DAYS 04/27/19 06:03 Aerobic Blood Culture - Preliminary Blood - Venous NO GROWTH AFTER 5 DAYS Anaerobic Blood Culture - Preliminary NO GROWTH AFTER 5 DAYS - Exam General: Alert, Oriented, Mild Distress HEENT: Pupils Equal, Pupils Reactive, EOMI, Mucous Membr. Moist/[place] Neck: Trachea Midline. No: Lymphadenopathy Lungs: Decreased Breath Sounds, Wheezing. No: Crackles, Rales, Rhonchi Cardiovascular: Regular Rate, Regular Rhythm. No: Murmurs, Gallops, Rubs GI/Abdominal Exam: Normal Bowel Sounds, Soft, Non-Tender Back Exam: Normal Inspection. No: CVA Tenderness (L), CVA Tenderness (R) Extremities: Normal Inspection, No Pedal Edema Skin: Warm Neurological: No New Focal Deficit Psy/Mental Status: Alert, Normal Affect, Normal Mood - Problem List & Annotations (1) Community acquired pneumonia SNOMED Code(s): 262030178 Code(s): J18.9 - PNEUMONIA, UNSPECIFIED ORGANISM Status: Acute Current Visit: Yes (2) Hypokalemia SNOMED Code(s): 57993504 Code(s): E87.6 - HYPOKALEMIA Status: Acute Current Visit: Yes (3) Acute kidney injury superimposed on chronic kidney disease SNOMED Code(s): 33797106 Code(s): N17.9 - ACUTE KIDNEY FAILURE, UNSPECIFIED; N18.9 - CHRONIC KIDNEY DISEASE, UNSPECIFIED Status: Acute Current Visit: Yes (4) Aortic valve replaced SNOMED Code(s): 2554638198912, 67924143, 5462554044536 Code(s): Z95.2 - PRESENCE OF PROSTHETIC HEART VALVE Status: Acute Current Visit: Yes (5) BPH (benign prostatic hyperplasia) SNOMED Code(s): 062217715 Code(s): N40.0 - BENIGN PROSTATIC HYPERPLASIA WITHOUT LOWER URINRY TRACT SYMP Status: Acute Current Visit: Yes (6) Coronary artery disease SNOMED Code(s): 13432000 Code(s): I25.10 - ATHSCL HEART DISEASE OF [place] CORONARY ARTERY W/O ANG PCTRS Status: Acute Current Visit: Yes (7) Diabetes mellitus SNOMED Code(s): 49656446 Code(s): E11.9 - TYPE 2 DIABETES MELLITUS WITHOUT COMPLICATIONS Status: Acute Current Visit: Yes (8) Dyslipidemia SNOMED Code(s): 215813643 Code(s): E78.5 - HYPERLIPIDEMIA, UNSPECIFIED Status: Acute Current Visit : Yes (9) Ex-smoker SNOMED Code(s): 3883995 Code(s): Z87.891 - PERSONAL HISTORY OF NICOTINE DEPENDENCE Status: Acute Current Visit: Yes (10) Gout SNOMED Code(s): 78901086 Code(s): M10.9 - GOUT, UNSPECIFIED Status: Acute Current Visit: Yes (11) H/O carotid endarterectomy SNOMED Code(s): 412260438, 636616387 Code(s): Z98.890 - OTHER SPECIFIED POSTPROCEDURAL STATES Status: Acute Current Visit: Yes (12) Hypomagnesemia SNOMED Code(s): 980482892 Code(s): E83.42 - HYPOMAGNESEMIA Status: Acute Current Visit: Yes (13) Hyponatremia SNOMED Code(s): 98922464 Code(s): E87.1 - HYPO-OSMOLALITY AND HYPONATREMIA Status: Acute Current Visit: Yes (14) Leukocytosis SNOMED Code(s): 297935745, 643246623 Code(s): D72.829 - ELEVATED WHITE BLOOD CELL COUNT, UNSPECIFIED Status: Acute Current Visit: Yes (15) COPD exacerbation SNOMED Code(s): 744888361, 806001858 Code(s): J44.1 - CHRONIC OBSTRUCTIVE PULMONARY DISEASE W (ACUTE) EXACERBATION Status: Acute Priority: High Current Visit: No (16) Hypoxia SNOMED Code(s): 287861578 Code(s): R09.02 - HYPOXEMIA Status: Resolved Priority: High Current Visit: No (17) Pulmonary hypertension SNOMED Code(s): 22192316 Code(s): I27.20 - PULMONARY HYPERTENSION, UNSPECIFIED Status: Acute Current Visit: Yes (18) MARY (obstructive sleep apnea) SNOMED Code(s): 79635270 Code(s): G47.33 - OBSTRUCTIVE SLEEP APNEA (ADULT) (PEDIATRIC) Status: Acute Current Visit: Yes (19) Diastolic CHF SNOMED Code(s): 122819307, 641997073 Code(s): I50.30 - UNSPECIFIED DIASTOLIC (CONGESTIVE) HEART FAILURE Status: Acute Current Visit: Yes - Problem List Review Problem List Initiated/Reviewed/Updated: Yes - Plan Plan:: Community acquired pneumonia with hypoxemia in the setting of COPD, improved CURB 65- 2 (9.2% mortality) PSI- 107, class IV (9.3%) RSV panel + rhinovirus Pulse ox goal >88% Qualified for home O2 PLAN - Completed levaquin - Continue pulmicort q12h, tessalon perles, guaifenessin, ipratropium - Continue medrol pack - RT treatment COPD Home management with Umeclidinium Brm/Vilanterol, Fluticasone/Salmeterol, Montelukast, Theophylline, Albuterol Sulfate PRN Might be confounding CAP picture Treat CAP 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 Losartan and metoprolol Encourage compliance with CPAP Remove dietary fluid and sodium restriction Electrolyte abnormalities Low potassium and sodium Likely 2/2 diuretics PLAN - replace today Hypertension No acute issues Home management with losartan and hydralazine PLAN - Continue home medications Dyslipidemia No acute issues Home pravastatin 80mg PLAN - Continue home statin Gout No acute issues PLAN - Continue home allopurinol Diabetes mellitus, [id number] Home management with metformin PLAN - Hold PO home medications - Moderate sliding scale - Accuchecks before meals and sleep Aortic valve replaced Bio-prosthetic Replaced 3 years ago No acute issues Chronic lower back pain No acute issues Home topical diclofenac PLAN -Pain management PRN H/O carotid endarterectomy No acute issues PLAN - Continue home statin and aspirin BPH No acute urinary retention PLAN - continue home tamsulosin Ex-smoker 1-2ppd x 12 years, quit >50 yrs ago No acute issues Systolic heart failure ruled out, EF 60-65% PROPHYLAXIS DVT- lovenox GI- not indicated CODE STATUS: DNR DISPOSITION: Patient will remain in inpatient service due to worsening of respiratory status , discharge unlikely in the next 24-48h.
[2019-05-02] MEDS ORDERED: Insulin Glarg,Human.Rec.Analog 100 UNIT/ML ML SUBCUT ONE (22:20)
[2019-05-02] MEDS: Docusate Sodium 100 MG Cap PO SCH (22:36)
[2019-05-02] MEDS: Tamsulosin 0.4 MG Cap.ER PO SCH (22:37)
[2019-05-03] MEDS: Albuterol/Ipratropium 3.0-0.5 MG/3 ML Neb Soln NEB SCH ×6 (01:59→20:59)
[2019-05-03] MEDS: Furosemide 40 MG/4 ML VIAL IVPUSH SCH ×2 (06:08→14:56)
[2019-05-03] MEDS: Budesonide 0.5 MG/2 ML Neb Susp NEB SCH ×2 (09:00→20:49)
[2019-05-03] MEDS: guaiFENesin 600 MG Tab.ER PO SCH ×3 (09:46→20:27)
[2019-05-03] MEDS: Spironolactone 25 MG Tab PO SCH ×2 (09:46→20:26)
[2019-05-03] MEDS: Aspirin 81 MG Tab.EC PO SCH (09:46)
[2019-05-03] MEDS: Allopurinol 100 MG Tab PO SCH (09:47)
[2019-05-03] MEDS: Multivitamins,Therapeutic Tab PO SCH (09:47)
[2019-05-03] MEDS: Gabapentin 300 MG Cap PO SCH ×2 (09:47→20:23)
[2019-05-03] MEDS: Oseltamivir 30 MG Cap PO SCH ×2 (09:47→20:26)
[2019-05-03] MEDS: Montelukast 10 MG Tab PO SCH (09:47)
[2019-05-03] MEDS: Benzonatate 100 MG Cap PO SCH ×3 (09:47→20:27)
[2019-05-03] MEDS: Psyllium Husk Powder Sugar Free 3.4 GM Packet PO SCH ×2 (09:48→20:22)
[2019-05-03] MEDS: Enoxaparin 40 MG/0.4 ML Syringe SUBCUT SCH (09:48)
[2019-05-03] MEDS: Insulin Glarg,Human.Rec.Analog 100 UNIT/ML ML SUBCUT SCH (09:48)
[2019-05-03] MEDS: Metoprolol Succinate 50 MG Tab.ER PO SCH ×2 (09:49→18:22)
[2019-05-03] MEDS: Theophylline 300 MG Tab.ER PO SCH ×2 (09:49→20:28)
[2019-05-03] MEDS: hydrALAZINE 25 MG Tab PO SCH ×4 (09:49→20:26)
[2019-05-03] MEDS: Insulin Lispro 100 Units/ML 3 ML Vial SUBCUT SCH ×4 (09:52→22:53)
[2019-05-03] MEDS ORDERED: Levofloxacin 750 MG Tab PO SCH (13:00)
[2019-05-03] MEDS ORDERED: Potassium Chloride 20 MEQ Tab.ER PO ONE (17:33)
[2019-05-03] MEDS: Losartan 25 MG Tab PO SCH (18:21)
--- NOTE | 2019-05-03 18:35 | CT ---
CT chest Technique: Multiple axial sections through the chest were obtained. Reconstructed coronal and sagittal images were obtained. Comparison: Prior chest x-ray of 05/01/19. Findings: Visualized upper abdominal structures shows surgical clips from prior cholecystectomy. Atherosclerotic calcification is seen within the thoracic aorta. Extensive coronary artery calcification is seen. Previous sternotomy is noted. Small mediastinal nodes are seen which are felt to be within normal limits. No pericardial thickening is seen. No axillary adenopathy is identified. Coarse lung markings are seen within the left lung base as well as slight linear densities. Lesser change is seen within the right lung base. Findings have the appearance of mild fibrosis and scarring. Lungs show nothing to indicate acute parenchymal change. Degenerative change scattered within the spine. Impression: 1. Mild changes within both lung bases, worse on the left side having the appearance of fibrosis and scarring. 2. Lungs show no definite acute appearing change. 3. Other findings which are believed to be incidental as noted above. Diagnostic code #3
[2019-05-03] MEDS: Docusate Sodium 100 MG Cap PO SCH (20:23)
[2019-05-03] MEDS: Tamsulosin 0.4 MG Cap.ER PO SCH (20:26)
--- NOTE | 2019-05-03 20:47 | PCM.PN ---
- General Info Date of Service: 05/03/19 Subjective Update: Feeling better Tolerating diet Ambulating Nursing reporting increasing BS levels - Patient Data Weight - Most Recent: 102.33 kg Jermain Results Last 24 Hours: Microbiology 04/29/19 09:00 Gram Stain - Final Sputum - Expectorated Sputum Culture - Final [place] Species 04/27/19 06:12 Aerobic Blood Culture - Preliminary Blood - Venous - Lab Draw NO GROWTH AFTER 6 DAYS Anaerobic Blood Culture - Preliminary NO GROWTH AFTER 6 DAYS 04/27/19 06:03 Aerobic Blood Culture - Preliminary Blood - Venous NO GROWTH AFTER 6 DAYS Anaerobic Blood Culture - Preliminary NO GROWTH AFTER 6 DAYS - Exam Quality Assessment: Supplemental Oxygen General: Alert, Oriented, Cooperative HEENT: Pupils Equal, Pupils Reactive, Mucous Membr. Moist/[place] Neck: Supple, Trachea Midline, No JVD, No Thyromegaly. No: Lymphadenopathy Lungs: Normal Respiratory Effort, Decreased Breath Sounds, Crackles, Wheezing ( interval improvement) Cardiovascular: Regular Rate, Regular Rhythm. No: Bradycardia, Tachycardia, Murmurs, Gallops GI/Abdominal Exam: Normal Bowel Sounds, Soft, Non-Tender, No Distention, No Abnormal Bruit. No: Guarding, Rebound Back Exam: Normal Inspection, Full Range of Motion Extremities: Normal Inspection, No Pedal Edema Skin: Warm, Dry Neurological: No New Focal Deficit Psy/Mental Status: Alert, Normal Affect, Normal Mood - Problem List & Annotations (1) Acute kidney injury superimposed on chronic kidney disease SNOMED Code(s): 94873695 Code(s): N17.9 - ACUTE KIDNEY FAILURE, UNSPECIFIED; N18.9 - CHRONIC KIDNEY DISEASE, UNSPECIFIED Status: Acute Current Visit: Yes (2) Aortic valve replaced SNOMED Code(s): 0293598834223, 43790141, 2062306891647 Code(s): Z95.2 - PRESENCE OF PROSTHETIC HEART VALVE Status: Acute Current Visit: Yes (3) BPH (benign prostatic hyperplasia) SNOMED Code(s): 330101216 Code(s): N40.0 - BENIGN PROSTATIC HYPERPLASIA WITHOUT LOWER URINRY TRACT SYMP Status: Acute Current Visit: Yes (4) COPD exacerbation SNOMED Code(s): 127240299 Code(s): J44.1 - CHRONIC OBSTRUCTIVE PULMONARY DISEASE W (ACUTE) EXACERBATION Status: Acute Current Visit: Yes (5) Community acquired pneumonia SNOMED Code(s): 942801399 Code(s): J18.9 - PNEUMONIA, UNSPECIFIED ORGANISM Status: Acute Current Visit: Yes (6) Coronary artery disease SNOMED Code(s): 61229138 Code(s): I25.10 - ATHSCL HEART DISEASE OF [place] CORONARY ARTERY W/O ANG PCTRS Status: Acute Current Visit: Yes (7) Diabetes mellitus SNOMED Code(s): 43059258 Code(s): E11.9 - TYPE 2 DIABETES MELLITUS WITHOUT COMPLICATIONS Status: Acute Current Visit: Yes (8) Diastolic CHF SNOMED Code(s): 105100571, 561865347 Code(s): I50.30 - UNSPECIFIED DIASTOLIC (CONGESTIVE) HEART FAILURE Status: Acute Current Visit: Yes (9) Dyslipidemia SNOMED Code(s): 828524110 Code(s): E78.5 - HYPERLIPIDEMIA, UNSPECIFIED Status: Acute Current Visit : Yes (10) Ex-smoker SNOMED Code(s): 6181261 Code(s): Z87.891 - PERSONAL HISTORY OF NICOTINE DEPENDENCE Status: Acute Current Visit: Yes (11) Gout SNOMED Code(s): 00434011 Code(s): M10.9 - GOUT, UNSPECIFIED Status: Acute Current Visit: Yes (12) H/O carotid endarterectomy SNOMED Code(s): 718324951, 686956660 Code(s): Z98.890 - OTHER SPECIFIED POSTPROCEDURAL STATES Status: Acute Current Visit: Yes (13) Hyponatremia SNOMED Code(s): 36277042 Code(s): E87.1 - HYPO-OSMOLALITY AND HYPONATREMIA Status: Acute Current Visit: Yes (14) Leukocytosis SNOMED Code(s): 798654076, 223282657 Code(s): D72.829 - ELEVATED WHITE BLOOD CELL COUNT, UNSPECIFIED Status: Acute Current Visit: Yes (15) MARY (obstructive sleep apnea) SNOMED Code(s): 93056336 Code(s): G47.33 - OBSTRUCTIVE SLEEP APNEA (ADULT) (PEDIATRIC) Status: Acute Current Visit: Yes (16) Pulmonary hypertension SNOMED Code(s): 45616186 Code(s): I27.20 - PULMONARY HYPERTENSION, UNSPECIFIED Status: Acute Current Visit: Yes - Problem List Review Problem List Initiated/Reviewed/Updated: Yes - Plan Plan:: Community acquired pneumonia with hypoxemia in the setting of COPD, improved CURB 65- 2 (9.2% mortality) PSI- 107, class IV (9.3%) RSV panel + rhinovirus Pulse ox goal >88% Qualified for home O2 PLAN - Completed levaquin - Continue pulmicort q12h, tessalon perles, guaifenessin - Start scheduled duonebs - Continue medrol pack - RT treatment COPD Home management with Umeclidinium Brm/Vilanterol, Fluticasone/Salmeterol, Montelukast, Theophylline, Albuterol Sulfate PRN Might be confounding CAP picture Treat CAP 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 Losartan and metoprolol Encourage compliance with CPAP Electrolyte abnormalities Low potassium and sodium Likely 2/2 diuretics PLAN - replace today Hypertension No acute issues Home management with losartan and hydralazine PLAN - Continue home medications Dyslipidemia No acute issues Home pravastatin 80mg PLAN - Continue home statin Gout No acute issues PLAN - Continue home allopurinol Diabetes mellitus, [id number] Home management with metformin Glucose trend high 2/2 steroids PLAN - Moderate sliding scale - Accuchecks before meals and sleep - Cover with sliding scales - Will schedule long acting if no improvement by tonight Aortic valve replaced Bio-prosthetic Replaced 3 years ago No acute issues Chronic lower back pain No acute issues Home topical diclofenac PLAN -Pain management PRN H/O carotid endarterectomy No acute issues PLAN - Continue home statin and aspirin BPH No acute urinary retention PLAN - continue home tamsulosin Ex-smoker 1-2ppd x 12 years, quit >50 yrs ago No acute issues Systolic heart failure ruled out, EF 60-65% PROPHYLAXIS DVT- lovenox GI- not indicated CODE STATUS: DNR DISPOSITION: Patient will remain in inpatient service due to worsening of respiratory status , discharge unlikely in the next 24-48h.
[2019-05-03] MEDS ORDERED: Insulin Glarg,Human.Rec.Analog 100 UNIT/ML ML SUBCUT ONE (22:45)
[2019-05-04] MEDS: Albuterol/Ipratropium 3.0-0.5 MG/3 ML Neb Soln NEB SCH ×6 (02:29→21:02)
[2019-05-04] MEDS: Furosemide 40 MG Tab PO SCH ×2 (06:35→15:31)
[2019-05-04] MEDS: Theophylline 300 MG Tab.ER PO SCH ×2 (08:24→21:44)
[2019-05-04] MEDS: Allopurinol 100 MG Tab PO SCH (08:25)
[2019-05-04] MEDS: Multivitamins,Therapeutic Tab PO SCH (08:25)
[2019-05-04] MEDS: Aspirin 81 MG Tab.EC PO SCH (08:25)
[2019-05-04] MEDS: Benzonatate 100 MG Cap PO SCH ×3 (08:25→21:45)
[2019-05-04] MEDS: Metoprolol Succinate 50 MG Tab.ER PO SCH ×2 (08:25→17:40)
[2019-05-04] MEDS: Spironolactone 25 MG Tab PO SCH ×2 (08:25→21:45)
[2019-05-04] MEDS: Montelukast 10 MG Tab PO SCH (08:26)
[2019-05-04] MEDS: Oseltamivir 30 MG Cap PO SCH ×2 (08:26→21:45)
[2019-05-04] MEDS: Gabapentin 300 MG Cap PO SCH ×2 (08:26→21:45)
[2019-05-04] MEDS: hydrALAZINE 25 MG Tab PO SCH ×4 (08:26→21:45)
[2019-05-04] MEDS: Psyllium Husk Powder Sugar Free 3.4 GM Packet PO SCH ×2 (08:27→21:44)
[2019-05-04] MEDS: Insulin Glarg,Human.Rec.Analog 100 UNIT/ML ML SUBCUT SCH (08:29)
[2019-05-04] MEDS: Insulin Lispro 100 Units/ML 3 ML Vial SUBCUT SCH ×4 (08:30→21:48)
[2019-05-04] MEDS: Enoxaparin 40 MG/0.4 ML Syringe SUBCUT SCH (08:31)
[2019-05-04] MEDS: Budesonide 0.5 MG/2 ML Neb Susp NEB SCH ×2 (11:02→21:02)
[2019-05-04] MEDS: guaiFENesin 600 MG Tab.ER PO SCH ×2 (12:07→21:44)
[2019-05-04] MEDS ORDERED: Codeine/guaiFENesin 100-10 MG/5 ML Syrup 5 ML Cup PO PRN (12:27)
[2019-05-04] MEDS ORDERED: Insulin Lispro 100 Units/ML 3 ML Vial SUBCUT ONE (17:30)
[2019-05-04] MEDS: Losartan 25 MG Tab PO SCH (17:40)
--- NOTE | 2019-05-04 20:38 | PCM.PN ---
- General Info Date of Service: 05/04/19 Subjective Update: Patient continues to have shortness of breath, wheezing, and cough. Functional Status: Reports: Pain Controlled - Review of Systems General: Reports: No Symptoms HEENT: Reports: No Symptoms Pulmonary: Reports: Shortness of Breath, Cough, Wheezing Cardiovascular: Reports: No Symptoms Gastrointestinal: Reports: No Symptoms - Patient Data Vitals - Most Recent: Last Vital Signs Temp 97.7 F 05/04/19 16:14 Pulse 86 05/04/19 17:40 Resp 24 H 05/04/19 16:13 BP 142/61 H 05/04/19 17:40 Pulse Ox 95 05/04/19 16:13 Weight - Most Recent: 225 lb 9.6 oz I&O - Last 24 Hours: Intake & Output 05/04/19 05/04/19 05/04/19 06:59 14:59 22:59 Intake Total 600 400 520 Balance 600 400 520 Lab Results Last 24 Hours: Laboratory Results - last 24 hr 05/02/19 05/03/19 05/03/19 Range/Units 20:41 05:11 20:45 Glucose 487 H (83-115) mg/dL POC Glucose (83-110) mg/dL Magnesium (1.8-2.4) mg/dl Procalcitonin <0.05 0.06 (<0.10) ng/mL 05/04/19 05/04/19 05/04/19 Range/Units 05:06 06:40 16:55 Glucose 413 H (83-115) mg/dL POC Glucose 208 H (83-110) mg/dL Magnesium 2.2 (1.8-2.4) mg/dl Procalcitonin (<0.10) ng/mL 05/04/19 Range/Units 20:29 Glucose (83-115) mg/dL POC Glucose 320 H (83-110) mg/dL Magnesium (1.8-2.4) mg/dl Procalcitonin (<0.10) ng/mL Jermain Results Last 24 Hours: Microbiology 05/02/19 04:25 Streptococcus pneumoniae Antigen (M - Final Urine 04/27/19 06:12 Aerobic Blood Culture - Final Blood - Venous - Lab Draw NO GROWTH AFTER 7 DAYS Anaerobic Blood Culture - Final NO GROWTH AFTER 7 DAYS 04/27/19 06:03 Aerobic Blood Culture - Final Blood - Venous NO GROWTH AFTER 7 DAYS Anaerobic Blood Culture - Final NO GROWTH AFTER 7 DAYS Med Orders - Current: Current Medications Acetaminophen (Tylenol) 650 mg PO Q4H PRN PRN Reason: Pain (Mild 1-3)/fever Last Admin: 04/30/19 14:45 Dose: 650 mg Albuterol/Ipratropium (Duoneb 3.0-0.5 Mg/3 Ml) 3 ml NEB QIDRT [facility] Last Admin: 05/04/19 17:17 Dose: Not Given Allopurinol (Zyloprim) 100 mg PO DAILY [facility] Last Admin: 05/04/19 08:25 Dose: 100 mg Aspirin (Halfprin) 81 mg PO DAILY [facility] Last Admin: 05/04/19 08:25 Dose: 81 mg Benzonatate (Tessalon Perles) 200 mg PO TID [facility] Last Admin: 05/04/19 15:31 Dose: 200 mg Budesonide (Pulmicort) 0.5 mg NEB Q12HR [facility] Last Admin: 05/04/19 11:02 Dose: 0.5 mg Docusate Sodium (Colace) 200 mg PO BEDTIME [facility] Last Admin: 05/03/19 20:23 Dose: 200 mg Enoxaparin Sodium (Lovenox) 40 mg SUBCUT DAILY [facility] Last Admin: 05/04/19 08:31 Dose: 40 mg Furosemide (Lasix) 20 mg PO BIDDIURETIC [facility] Last Admin: 05/04/19 15:31 Dose: 20 mg Gabapentin (Neurontin) 300 mg PO BID [facility] Last Admin: 05/04/19 08:26 Dose: 300 mg Guaifenesin (Mucinex) 1,200 mg PO BID [facility] Last Admin: 05/04/19 12:07 Dose: 1,200 mg Guaifenesin/Codeine Phosphate (Robitussin Ac) 5 ml PO Q6H PRN PRN Reason: Cough Hydralazine HCl (Apresoline) 25 mg PO QID [facility] Last Admin: 05/04/19 17:40 Dose: 25 mg Insulin Glargine (Lantus) 10 unit SUBCUT DAILY [facility] Last Admin: 05/04/19 08:29 Dose: 10 units Insulin Human Lispro (Humalog) 0 unit SUBCUT QIDACANDBED [facility]; Protocol Losartan Potassium (Cozaar) 50 mg PO WITHDINNER [facility] Last Admin: 05/04/19 17:40 Dose: 50 mg Metoprolol Succinate (Toprol Xl) 50 mg PO DAILY [facility] Last Admin: 05/04/19 08:25 Dose: 50 mg Metoprolol Succinate (Toprol Xl) 100 mg PO QPM [facility] Last Admin: 05/04/19 17:40 Dose: 100 mg Montelukast Sodium (Singulair) 10 mg PO DAILY [facility] Last Admin: 05/04/19 08:26 Dose: 10 mg Multivitamins (Thera) 1 each PO DAILY [facility] Last Admin: 05/04/19 08:25 Dose: 1 each Oseltamivir Phosphate (Tamiflu) 30 mg PO BID [facility] Last Admin: 05/04/19 08:26 Dose: 30 mg Pravastatin 80 Mg 0 each PO DAILY [facility] Last Admin: 05/04/19 08:27 Dose: 1 each Psyllium Husk (Metamucil Sugar Free) 1 packet PO BID [facility] Last Admin: 05/04/19 08:27 Dose: 1 packet Spironolactone (Aldactone) 25 mg PO BID [facility] Last Admin: 05/04/19 08:25 Dose: 25 mg Tamsulosin HCl (Flomax) 0.4 mg PO BEDTIME [facility] Last Admin: 05/03/19 20:26 Dose: 0.4 mg Theophylline (Theophylline Anhydrous) 300 mg PO BID [facility] Last Admin: 05/04/19 08:24 Dose: 300 mg Discontinued Medications Acetylcysteine (Mucomyst 20%) 1,000 mg NEB Q4HR [facility] Last Admin: 04/29/19 16:49 Dose: 800 mg Acetylcysteine (Mucomyst 20%) 800 mg NEB Q4H [facility] Last Admin: 04/29/19 21:00 Dose: 800 mg Acetylcysteine (Mucomyst 20%) 800 mg NEB BIDRT [facility] Acetylcysteine (Mucomyst 20%) 800 mg NEB QIDRT [facility] Acetylcysteine (Mucomyst 20%) 800 mg NEB BID [facility] Last Admin: 05/02/19 08:40 Dose: 800 mg Albuterol/Ipratropium (Duoneb 3.0-0.5 Mg/3 Ml) 3 ml NEB ONETIME ONE Stop: 04/27/19 05:59 Last Admin: 04/27/19 06:14 Dose: 3 ml Albuterol/Ipratropium (Duoneb 3.0-0.5 Mg/3 Ml) 3 ml NEB Q6HRRT [facility] Last Admin: 05/02/19 12:44 Dose: Not Given Albuterol/Ipratropium (Duoneb 3.0-0.5 Mg/3 Ml) 3 ml NEB Q6HRRT [facility] Albuterol/Ipratropium (Duoneb 3.0-0.5 Mg/3 Ml) 3 ml NEB Q4HRRT [facility] Last Admin: 05/04/19 14:53 Dose: 3 ml Benzonatate (Tessalon Perles) 100 mg PO TID [facility] Last Admin: 04/28/19 21:15 Dose: 100 mg Budesonide (Pulmicort) 0.5 mg NEB BID [facility] Last Admin: 04/27/19 12:15 Dose: 0.5 mg Furosemide (Lasix) 40 mg IVPUSH NOW ONE Stop: 04/27/19 07:12 Last Admin: 04/27/19 07:30 Dose: 40 mg Furosemide (Lasix) 40 mg IVPUSH Q8H [facility] Last Admin: 05/02/19 06:22 Dose: 40 mg Furosemide (Lasix) 40 mg IVPUSH TID [facility] Furosemide (Lasix) 40 mg IVPUSH BIDDIURETIC [facility] Last Admin: 05/03/19 14:56 Dose: 40 mg Guaifenesin (Mucinex) 600 mg PO TID [facility] Last Admin: 05/03/19 20:27 Dose: 600 mg Azithromycin 500 mg/ Sodium (Chloride) 250 mls @ 250 mls/hr IV ONETIME STA Stop: 04/27/19 07:57 Last Admin: 04/27/19 08:00 Dose: 250 mls/hr Ceftriaxone Sodium 1 gm/ (Sodium Chloride) 100 mls @ 200 mls/hr IV ONETIME STA Stop: 04/27/19 07:27 Last Admin: 04/27/19 07:10 Dose: 200 mls/hr Magnesium Sulfate 4 gm/ Premix 50 mls @ 12.5 mls/hr IV ONETIME ONE Stop: 04/28/19 23:08 Last Admin: 04/28/19 21:08 Dose: 12.5 mls/hr Insulin Glargine (Lantus) 10 unit SUBCUT DAILY [facility] Last Admin: 05/03/19 09:48 Dose: 10 units Insulin Glargine (Lantus) 10 unit SUBCUT ONETIME ONE Stop: 05/03/19 22:46 Last Admin: 05/03/19 22:56 Dose: 10 units Insulin Human Lispro (Humalog) 0 unit SUBCUT QIDACANDBED [facility]; Protocol Last Admin: 05/04/19 17:44 Dose: Not Given Insulin Human Lispro (Humalog) 3 unit SUBCUT ONETIME ONE Stop: 05/02/19 15:24 Last Admin: 05/02/19 15:44 Dose: 3 units Insulin Human Lispro (Humalog) 10 unit SUBCUT ONETIME ONE Stop: 05/04/19 17:31 Last Admin: 05/04/19 17:41 Dose: 10 units Ipratropium Aurora (Atrovent) 0.5 mg NEB Q6HRRT [facility] Last Admin: 05/02/19 08:40 Dose: 0.5 mg Levofloxacin (Levaquin) 750 mg PO Q24H [facility] Last Admin: 05/01/19 13:56 Dose: 750 mg Levofloxacin (Levaquin) 750 mg PO Q48H [facility] Stop: 05/03/19 15:00 Last Admin: 05/03/19 12:24 Dose: 750 mg Losartan Potassium (Cozaar) 100 mg PO WITHDINNER [facility] Last Admin: 05/01/19 17:22 Dose: 100 mg Methylprednisolone (Medrol) 24 mg PO DAILY [facility] Stop: 05/03/19 09:01 Last Admin: 05/03/19 09:47 Dose: 24 mg Methylprednisolone (Medrol) 20 mg PO DAILY [facility] Stop: 05/04/19 09:01 Last Admin: 05/04/19 08:26 Dose: 20 mg Methylprednisolone (Medrol) 16 mg PO DAILY [facility] Stop: 05/05/19 09:01 Methylprednisolone (Medrol) 12 mg PO DAILY [facility] Stop: 05/06/19 09:01 Methylprednisolone (Medrol) 8 mg PO DAILY [facility] Stop: 05/07/19 09:01 Methylprednisolone (Medrol) 4 mg PO DAILY [facility] Stop: 05/08/19 09:01 Methylprednisolone Sodium Succinate (Solu-Medrol) 125 mg IVPUSH ONETIME ONE Stop: 04/30/19 15:29 Last Admin: 04/30/19 16:07 Dose: 125 mg Methylprednisolone Sodium Succinate (Solu-Medrol) 40 mg IVPUSH Q6H [facility] Last Admin: 05/02/19 09:10 Dose: 40 mg Metoprolol Succinate (Toprol Xl) 150 mg PO DAILY [facility] Last Admin: 04/28/19 14:28 Dose: Not Given Mometasone Furoate/Formoterol Fumar (Dulera 200-5 Mcg) 2 puff IH BIDRT [facility] Last Admin: 04/28/19 20:17 Dose: 2 puff Mometasone Furoate/Formoterol Fumar (Dulera 200-5 Mcg) 2 puff IH BID [facility] Theophylline Sr 300 (Mg Pt's Own Med) 0 each PO BID [facility] Last Admin: 04/27/19 20:17 Dose: Not Given Anoro Ellipta ( Umeclidinium Brm/Vilanterol Tr 1 Puff ) 0 each INH DAILY [facility] Potassium Chloride (Klor-Con M20) 40 meq PO ONETIME ONE Stop: 05/03/19 17:34 Last Admin: 05/03/19 18:19 Dose: 40 meq - Exam Quality Assessment: Supplemental Oxygen General: Alert, Oriented HEENT: Pupils Equal Neck: Supple Lungs: Normal Respiratory Effort, Wheezing Cardiovascular: Regular Rate, Regular Rhythm Extremities: Normal Inspection, Normal Range of Motion, Non-Tender, No Pedal Edema, Normal Capillary Refill Skin: Warm, Dry, Intact Psy/Mental Status: Alert, Normal Affect, Normal Mood - Problem List Review Problem List Initiated/Reviewed/Updated: Yes - My Orders Last 24 Hours: My Active Orders 05/04/19 17:00 Albuterol/Ipratropium [DuoNeb 3.0-0.5 MG/3 ML] 3 ml NEB QIDRT 05/04/19 22:00 Insulin Lispro [HumaLOG] See Protocol SUBCUT QIDACANDBED - Plan Plan:: Community acquired pneumonia with hypoxemia in the setting of COPD, improved CURB 65- 2 (9.2% mortality) PSI- 107, class IV (9.3%) RSV panel + rhinovirus Pulse ox goal >88% Qualified for home O2 PLAN - Completed levaquin - Continue pulmicort q12h, tessalon perles, guaifenessin - Start scheduled duonebs - Continue medrol pack - RT treatment COPD Home management with Umeclidinium Brm/Vilanterol, Fluticasone/Salmeterol, Montelukast, Theophylline, Albuterol Sulfate PRN Might be confounding CAP picture Treat CAP Patient is not improved after 7 days of treatment. Plan is to transfer him to [place] for specialty care in the morning. 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 Losartan and metoprolol Encourage compliance with CPAP Electrolyte abnormalities Low potassium and sodium Likely 2/2 diuretics PLAN - replace today Hypertension No acute issues Home management with losartan and hydralazine PLAN - Continue home medications Dyslipidemia No acute issues Home pravastatin 80mg PLAN - Continue home statin Gout No acute issues PLAN - Continue home allopurinol Diabetes mellitus, [id number] Home management with metformin Glucose trend high 2/2 steroids PLAN - Moderate sliding scale - Accuchecks before meals and sleep - Cover with sliding scales - Will schedule long acting if no improvement by [place] Aortic valve replaced Bio-prosthetic Replaced 3 years ago No acute issues Chronic lower back pain No acute issues Home topical diclofenac PLAN -Pain management PRN H/O carotid endarterectomy No acute issues PLAN - Continue home statin and aspirin BPH No acute urinary retention PLAN - continue home tamsulosin Ex-smoker 1-2ppd x 12 years, quit >50 yrs ago No acute issues Systolic heart failure ruled out, EF 60-65% PROPHYLAXIS DVT- lovenox GI- not indicated CODE STATUS: DNR DISPOSITION: Transfer to [place] for specialty care and higher level of care tomorrow.
[2019-05-04] MEDS: Tamsulosin 0.4 MG Cap.ER PO SCH (21:45)
[2019-05-04] MEDS: Docusate Sodium 100 MG Cap PO SCH (21:45)
[2019-05-04] MEDS: Acetaminophen 325 MG Tab PO PRN (23:20)
[2019-05-05] MEDS: Albuterol/Ipratropium 3.0-0.5 MG/3 ML Neb Soln NEB SCH ×3 (05:31→16:58)
[2019-05-05] MEDS: Furosemide 40 MG Tab PO SCH ×2 (06:23→14:50)
[2019-05-05] MEDS: Aspirin 81 MG Tab.EC PO SCH (08:43)
[2019-05-05] MEDS: Allopurinol 100 MG Tab PO SCH (08:44)
[2019-05-05] MEDS: Gabapentin 300 MG Cap PO SCH (08:44)
[2019-05-05] MEDS: Benzonatate 100 MG Cap PO SCH ×2 (08:44→14:50)
[2019-05-05] MEDS: Montelukast 10 MG Tab PO SCH (08:44)
[2019-05-05] MEDS: Metoprolol Succinate 50 MG Tab.ER PO SCH ×2 (08:44→17:31)
[2019-05-05] MEDS: Psyllium Husk Powder Sugar Free 3.4 GM Packet PO SCH (08:45)
[2019-05-05] MEDS: Enoxaparin 40 MG/0.4 ML Syringe SUBCUT SCH (08:45)
[2019-05-05] MEDS: guaiFENesin 600 MG Tab.ER PO SCH (08:45)
[2019-05-05] MEDS: Spironolactone 25 MG Tab PO SCH (08:45)
[2019-05-05] MEDS: Multivitamins,Therapeutic Tab PO SCH (08:45)
[2019-05-05] MEDS: hydrALAZINE 25 MG Tab PO SCH ×3 (08:45→17:30)
[2019-05-05] MEDS: Insulin Glarg,Human.Rec.Analog 100 UNIT/ML ML SUBCUT SCH (08:46)
[2019-05-05] MEDS: Insulin Lispro 100 Units/ML 3 ML Vial SUBCUT SCH ×3 (08:46→17:31)
[2019-05-05] MEDS: Theophylline 300 MG Tab.ER PO SCH (08:47)
[2019-05-05] MEDS ORDERED: Oseltamivir 75 MG Cap PO SCH (09:00)
--- NOTE | 2019-05-05 09:08 | PCM.DCSUM1 ---
Discharge Summary - Hospital Course HPI Initial Comments: This is a 79 year old who came in to the ED for worsening shortness of breath 7 days ago congestion, coughing, greyish brown and white colored sputum, malaise , chills, coughing spells that were increasingly more productive Associated with worsening LE edema, worsening CLARKE No orthopnea, PND No sick contacts flu shot April 05 BL LE edema Diagnosis: Stroke: No - Discharge Data Discharge Date: 05/05/19 Discharge Disposition: DC/Tfer to Acute Hospital 02 Condition: Fair - Referral to Home Health Primary Care Physician: Andrew Nick MD - Patient Summary/Data Consults: Consultations 04/29/19 11:03 Consult to Physical Therapy [PT Evaluation and Treatment] [CONS] Routine 04/29/19 11:06 Consult to Occupational Therapy [OT Evaluation and Treatment] [CONS] Routine Hospital Course: Patient was admitted for community-acquired pneumonia and exacerbation of COPD. He received antibiotics, IV steroids, breathing treatments, and had very little improvement over the 8 day hospitalization. Case was discussed with table games floor supervisor in [facility] and it was determined to transfer for higher level of care. - Discharge Plan *PRESCRIPTION DRUG MONITORING PROGRAM REVIEWED*: Not Applicable *COPY OF PRESCRIPTION DRUG MONITORING REPORT IN PATIENT DK: Not Applicable Home Medications: Home Meds Albuterol [Proventil Neb Soln] 2.5 mg NEB Q4HR PRN 01/27/16 [History] Albuterol/Ipratropium [DuoNeb 3.0-0.5 MG/3 ML] 2.5 mg NEB Q6HR PRN 01/27/16 [ History] Fluticasone/Salmeterol [Advair Diskus 500-50] 1 puff INH BID 01/27/16 [History] Furosemide [Lasix] 40 mg PO DAILY 01/27/16 [History] Gabapentin [Neurontin] 300 mg PO BID 01/27/16 [History] Losartan [Cozaar] 100 mg PO DAILY 01/27/16 [History] Metoprolol Succinate [Toprol XL] 50 mg PO QAM 01/27/16 [History] Pravastatin [Pravachol] 80 mg PO DAILY 01/27/16 [History] Psyllium Husk [Metamucil] 1 cap PO BID 01/27/16 [History] Tamsulosin [Flomax] 0.4 mg PO BEDTIME 01/27/16 [History] Montelukast [Singulair] 10 mg PO BEDTIME 08/22/17 [History] Albuterol Sulfate [Proair Hfa] 2 puff INH Q4H PRN 04/27/19 [History] Allopurinol [Zyloprim] 100 mg PO DAILY 04/27/19 [History] Aspirin [Halfprin] 81 mg PO DAILY 04/27/19 [History] Azithromycin 250 mg PO DAILY 04/27/19 [History] Codeine/guaiFENesin [Robitussin AC] 5 ml PO Q4H PRN 04/27/19 [History] Diclofenac Sodium [Voltaren 1% Gel] 1 applic TOP BID 04/27/19 [History] Docusate Sodium 200 mg PO BEDTIME PRN 04/27/19 [History] Metoprolol Succinate [Toprol Xl] 100 mg PO QPM 04/27/19 [History] Multivitamin [Multivitamins] 1 tab PO DAILY 04/27/19 [History] Spironolactone [Aldactone] 25 mg PO DAILY 04/27/19 [History] Theophylline Anhydrous [Theochron] 300 mg PO BID 04/27/19 [History] Umeclidinium Brm/Vilanterol Tr [Anoro Ellipta 62.5-25 MCG] 1 puff INH DAILY [History] hydrALAZINE [Apresoline] 25 mg PO QID 04/27/19 [History] metFORMIN HCl [Metformin HCl] 1,000 mg PO BID 04/27/19 [History] predniSONE [Prednisone] 40 mg PO DAILY 04/27/19 [History] Oxygen Therapy Mode: Nasal Cannula Oxygen Flow Rate (L/min): 1.5 Patient Handouts: Chronic Obstructive Pulmonary Disease Exacerbation, Easy-to- Read, Sepsis, Adult, Heart Failure, [id number], Community-Acquired Pneumonia, Adult, [id number] Referrals: Morris Rivera [Other] - 05/10/19 2:20 pm (Pulmonology appointment is in Central Standard Time) Andrew Nick MD [Primary Care Provider] - - Discharge Summary/Plan Comment DC Time >30 min.: Yes Discharge Summary/Plan Comment: Patient be transferred [facility]. Accepting physician is Dr. Alvarado. - General Info Date of Service: 05/05/19 Admission Dx/Problem (Free Text: Community-acquired pneumonia with COPD exacerbation Subjective Update: Patient continues to have cough, wheezing, and shortness of breath. It has not improved. Functional Status: Reports: Pain Controlled - Review of Systems General: Reports: No Symptoms HEENT: Reports: No Symptoms Pulmonary: Reports: Shortness of Breath, Cough Cardiovascular: Reports: No Symptoms Gastrointestinal: Reports: No Symptoms - Patient Data Vitals - Most Recent: Last Vital Signs Temp 98.2 F 05/05/19 03:55 Pulse 82 05/05/19 08:44 Resp 16 05/05/19 03:55 BP 123/53 L 05/05/19 08:45 Pulse Ox 96 05/05/19 05:31 Weight - Most Recent: 225 lb 9.6 oz I&O - Last 24 hours: Intake & Output 05/04/19 05/05/19 05/05/19 22:59 06:59 14:59 Intake Total 520 800 Balance 520 800 Lab Results - Last 24 hrs: Laboratory Results - last 24 hr 05/04/19 05/04/19 05/04/19 Range/Units 11:23 16:55 20:29 WBC (4.23-9.07) K/mm3 RBC (4.63-6.08) M/mm3 Hgb (13.7-17.5) gm/dl Hct (40.1-51.0) % MCV (79.0-92.2) fl MCH (25.7-32.2) pg MCHC (32.2-35.5) g/dl RDW Std Deviation (35.1-43.9) fL Plt Count (163-337) K/mm3 MPV (9.4-12.3) fl Neut % (Auto) (34.0-67.9) % Lymph % (Auto) (21.8-53.1) % [place]ck[place] % (Auto) (5.3-12.2) % Eos % (Auto) (0.8-7.0) Baso % (Auto) (0.1-1.2) % Neut # (Auto) (1.78-5.38) K/mm3 Lymph # (Auto) (1.32-3.57) K/mm3 [place]ck[place] # (Auto) (0.30-0.82) K/mm3 Eos # (Auto) (0.04-0.54) K/mm3 Baso # (Auto) (0.01-0.08) K/mm3 Manual Slide Review Sodium (136-145) mEq/L Potassium (3.5-5.1) mEq/L Chloride (98-107) mEq/L Carbon Dioxide (21-32) mEq/L Anion Gap (5-15) BUN (7-18) mg/dL Creatinine (0.7-1.3) mg/dL Est Cr Clr Drug Dosing mL/min Estimated GFR (MDRD) (>60) mL/min BUN/Creatinine Ratio (14-18) Glucose 413 H (83-115) mg/dL POC Glucose 142 H 320 H (83-110) mg/dL Calcium (8.5-10.1) mg/dL Magnesium (1.8-2.4) mg/dl Total Bilirubin (0.2-1.0) mg/dL AST (15-37) U/L ALT (16-63) U/L Alkaline Phosphatase (46-116) U/L Total Protein (6.4-8.2) g/dl Albumin (3.4-5.0) g/dl Globulin gm/dL Albumin/Globulin Ratio (1-2) 05/05/19 05/05/19 05/05/19 Range/Units 05:28 05:28 06:22 WBC 14.93 H (4.23-9.07) K/mm3 RBC 3.94 L (4.63-6.08) M/mm3 Hgb 10.8 L (13.7-17.5) gm/dl Hct 34.0 L (40.1-51.0) % MCV 86.3 (79.0-92.2) fl MCH 27.4 (25.7-32.2) pg MCHC 31.8 L (32.2-35.5) g/dl RDW Std Deviation 53.5 H (35.1-43.9) fL Plt Count 337 D (163-337) K/mm3 MPV 9.3 L (9.4-12.3) fl Neut % (Auto) 69.6 H (34.0-67.9) % Lymph % (Auto) 15.6 L (21.8-53.1) % Mckinley % (Auto) 9.2 (5.3-12.2) % Eos % (Auto) 0.5 L (0.8-7.0) Baso % (Auto) 0.1 (0.1-1.2) % Neut # (Auto) 10.38 H (1.78-5.38) K/mm3 Lymph # (Auto) 2.33 (1.32-3.57) K/mm3 [place] # (Auto) 1.37 H (0.30-0.82) K/mm3 Eos # (Auto) 0.08 (0.04-0.54) K/mm3 Baso # (Auto) 0.02 (0.01-0.08) K/mm3 Manual Slide Review Abnormal smear Sodium 139 (136-145) mEq/L Potassium 4.3 (3.5-5.1) mEq/L Chloride 102 (98-107) mEq/L Carbon Dioxide 29 (21-32) mEq/L Anion Gap 12.3 (5-15) BUN 33 H D (7-18) mg/dL Creatinine 1.1 (0.7-1.3) mg/dL Est Cr Clr Drug Dosing 52.58 mL/min Estimated GFR (MDRD) > 60 (>60) mL/min BUN/Creatinine Ratio 30.0 H (14-18) Glucose 151 H (83-115) mg/dL POC Glucose 172 H (83-110) mg/dL Calcium 8.7 (8.5-10.1) mg/dL Magnesium 2.0 (1.8-2.4) mg/dl Total Bilirubin 0.4 (0.2-1.0) mg/dL AST 29 (15-37) U/L ALT 51 (16-63) U/L Alkaline Phosphatase 83 (46-116) U/L Total Protein 7.0 (6.4-8.2) g/dl Albumin 2.7 L (3.4-5.0) g/dl Globulin 4.3 gm/dL Albumin/Globulin Ratio 0.6 L (1-2) JAVI Results - Last 24 hrs: Microbiology 05/02/19 04:25 Streptococcus pneumoniae Antigen (M - Final Urine 04/27/19 06:12 Aerobic Blood Culture - Final Blood - Venous - Lab Draw NO GROWTH AFTER 7 DAYS Anaerobic Blood Culture - Final NO GROWTH AFTER 7 DAYS 04/27/19 06:03 Aerobic Blood Culture - Final Blood - Venous NO GROWTH AFTER 7 DAYS Anaerobic Blood Culture - Final NO GROWTH AFTER 7 DAYS Med Orders - Current: Current Medications Acetaminophen (Tylenol) 650 mg PO Q4H PRN PRN Reason: Pain (Mild 1-3)/fever Last Admin: 05/04/19 23:20 Dose: 650 mg Albuterol/Ipratropium (Duoneb 3.0-0.5 Mg/3 Ml) 3 ml NEB QIDRT [facility] Last Admin: 05/05/19 05:31 Dose: 3 ml Allopurinol (Zyloprim) 100 mg PO DAILY [facility] Last Admin: 05/05/19 08:44 Dose: 100 mg Aspirin (Halfprin) 81 mg PO DAILY [facility] Last Admin: 05/05/19 08:43 Dose: 81 mg Benzonatate (Tessalon Perles) 200 mg PO TID [facility] Last Admin: 05/05/19 08:44 Dose: 200 mg Budesonide (Pulmicort) 0.5 mg NEB Q12HR [facility] Last Admin: 05/04/19 21:02 Dose: 0.5 mg Docusate Sodium (Colace) 200 mg PO BEDTIME [facility] Last Admin: 05/04/19 21:45 Dose: 200 mg Enoxaparin Sodium (Lovenox) 40 mg SUBCUT DAILY [facility] Last Admin: 05/05/19 08:45 Dose: 40 mg Furosemide (Lasix) 20 mg PO BIDDIURETIC [facility] Last Admin: 05/05/19 06:23 Dose: 20 mg Gabapentin (Neurontin) 300 mg PO BID [facility] Last Admin: 05/05/19 08:44 Dose: 300 mg Guaifenesin (Mucinex) 1,200 mg PO BID [facility] Last Admin: 05/05/19 08:45 Dose: 1,200 mg Guaifenesin/Codeine Phosphate (Robitussin Ac) 5 ml PO Q6H PRN PRN Reason: Cough Hydralazine HCl (Apresoline) 25 mg PO QID [facility] Last Admin: 05/05/19 08:45 Dose: 25 mg Insulin Glargine (Lantus) 10 unit SUBCUT DAILY [facility] Last Admin: 05/05/19 08:46 Dose: 10 units Insulin Human Lispro (Humalog) 0 unit SUBCUT QIDACANDBED [facility]; Protocol Last Admin: 05/05/19 08:46 Dose: 2 units Losartan Potassium (Cozaar) 50 mg PO WITHDINNER [facility] Last Admin: 05/04/19 17:40 Dose: 50 mg Metoprolol Succinate (Toprol Xl) 50 mg PO DAILY [facility] Last Admin: 05/05/19 08:44 Dose: 50 mg Metoprolol Succinate (Toprol Xl) 100 mg PO QPM [facility] Last Admin: 05/04/19 17:40 Dose: 100 mg Montelukast Sodium (Singulair) 10 mg PO DAILY [facility] Last Admin: 05/05/19 08:44 Dose: 10 mg Multivitamins (Thera) 1 each PO DAILY [facility] Last Admin: 05/05/19 08:45 Dose: 1 each Oseltamivir Phosphate (Tamiflu) 75 mg PO BID [facility] Stop: 05/06/19 21:01 Last Admin: 05/05/19 08:54 Dose: 75 mg Pravastatin 80 Mg 0 each PO DAILY [facility] Last Admin: 05/05/19 08:46 Dose: 1 each Psyllium Husk (Metamucil Sugar Free) 1 packet PO BID [facility] Last Admin: 05/05/19 08:45 Dose: 1 packet Spironolactone (Aldactone) 25 mg PO BID [facility] Last Admin: 05/05/19 08:45 Dose: 25 mg Tamsulosin HCl (Flomax) 0.4 mg PO BEDTIME [facility] Last Admin: 05/04/19 21:45 Dose: 0.4 mg Theophylline (Theophylline Anhydrous) 300 mg PO BID [facility] Last Admin: 05/05/19 08:47 Dose: 300 mg Discontinued Medications Acetylcysteine (Mucomyst 20%) 1,000 mg NEB Q4HR [facility] Last Admin: 04/29/19 16:49 Dose: 800 mg Acetylcysteine (Mucomyst 20%) 800 mg NEB Q4H [facility] Last Admin: 04/29/19 21:00 Dose: 800 mg Acetylcysteine (Mucomyst 20%) 800 mg NEB BIDRT [facility] Acetylcysteine (Mucomyst 20%) 800 mg NEB QIDRT [facility] Acetylcysteine (Mucomyst 20%) 800 mg NEB BID [facility] Last Admin: 05/02/19 08:40 Dose: 800 mg Albuterol/Ipratropium (Duoneb 3.0-0.5 Mg/3 Ml) 3 ml NEB ONETIME ONE Stop: 04/27/19 05:59 Last Admin: 04/27/19 06:14 Dose: 3 ml Albuterol/Ipratropium (Duoneb 3.0-0.5 Mg/3 Ml) 3 ml NEB Q6HRRT [facility] Last Admin: 05/02/19 12:44 Dose: Not Given Albuterol/Ipratropium (Duoneb 3.0-0.5 Mg/3 Ml) 3 ml NEB Q6HRRT [facility] Albuterol/Ipratropium (Duoneb 3.0-0.5 Mg/3 Ml) 3 ml NEB Q4HRRT [facility] Last Admin: 05/04/19 14:53 Dose: 3 ml Benzonatate (Tessalon Perles) 100 mg PO TID [facility] Last Admin: 04/28/19 21:15 Dose: 100 mg Budesonide (Pulmicort) 0.5 mg NEB BID [facility] Last Admin: 04/27/19 12:15 Dose: 0.5 mg Furosemide (Lasix) 40 mg IVPUSH NOW ONE Stop: 04/27/19 07:12 Last Admin: 04/27/19 07:30 Dose: 40 mg Furosemide (Lasix) 40 mg IVPUSH Q8H [facility] Last Admin: 05/02/19 06:22 Dose: 40 mg Furosemide (Lasix) 40 mg IVPUSH TID [facility] Furosemide (Lasix) 40 mg IVPUSH BIDDIURETIC [facility] Last Admin: 05/03/19 14:56 Dose: 40 mg Guaifenesin (Mucinex) 600 mg PO TID [facility] Last Admin: 05/03/19 20:27 Dose: 600 mg Azithromycin 500 mg/ Sodium (Chloride) 250 mls @ 250 mls/hr IV ONETIME STA Stop: 04/27/19 07:57 Last Admin: 04/27/19 08:00 Dose: 250 mls/hr Ceftriaxone Sodium 1 gm/ (Sodium Chloride) 100 mls @ 200 mls/hr IV ONETIME STA Stop: 04/27/19 07:27 Last Admin: 04/27/19 07:10 Dose: 200 mls/hr Magnesium Sulfate 4 gm/ Premix 50 mls @ 12.5 mls/hr IV ONETIME ONE Stop: 04/28/19 23:08 Last Admin: 04/28/19 21:08 Dose: 12.5 mls/hr Insulin Glargine (Lantus) 10 unit SUBCUT DAILY [facility] Last Admin: 05/03/19 09:48 Dose: 10 units Insulin Glargine (Lantus) 10 unit SUBCUT ONETIME ONE Stop: 05/03/19 22:46 Last Admin: 05/03/19 22:56 Dose: 10 units Insulin Human Lispro (Humalog) 0 unit SUBCUT QIDACANDBED [facility]; Protocol Last Admin: 05/04/19 17:44 Dose: Not Given Insulin Human Lispro (Humalog) 3 unit SUBCUT ONETIME ONE Stop: 05/02/19 15:24 Last Admin: 05/02/19 15:44 Dose: 3 units Insulin Human Lispro (Humalog) 10 unit SUBCUT ONETIME ONE Stop: 05/04/19 17:31 Last Admin: 05/04/19 17:41 Dose: 10 units Ipratropium [place] (Atrovent) 0.5 mg NEB Q6HRRT [facility] Last Admin: 05/02/19 08:40 Dose: 0.5 mg Levofloxacin (Levaquin) 750 mg PO Q24H [facility] Last Admin: 05/01/19 13:56 Dose: 750 mg Levofloxacin (Levaquin) 750 mg PO Q48H [facility] Stop: 05/03/19 15:00 Last Admin: 05/03/19 12:24 Dose: 750 mg Losartan Potassium (Cozaar) 100 mg PO WITHDINNER [facility] Last Admin: 05/01/19 17:22 Dose: 100 mg Methylprednisolone (Medrol) 24 mg PO DAILY [facility] Stop: 05/03/19 09:01 Last Admin: 05/03/19 09:47 Dose: 24 mg Methylprednisolone (Medrol) 20 mg PO DAILY [facility] Stop: 05/04/19 09:01 Last Admin: 05/04/19 08:26 Dose: 20 mg Methylprednisolone (Medrol) 16 mg PO DAILY [facility] Stop: 05/05/19 09:01 Methylprednisolone (Medrol) 12 mg PO DAILY [facility] Stop: 05/06/19 09:01 Methylprednisolone (Medrol) 8 mg PO DAILY [facility] Stop: 05/07/19 09:01 Methylprednisolone (Medrol) 4 mg PO DAILY [facility] Stop: 05/08/19 09:01 Methylprednisolone Sodium Succinate (Solu-Medrol) 125 mg IVPUSH ONETIME ONE Stop: 04/30/19 15:29 Last Admin: 04/30/19 16:07 Dose: 125 mg Methylprednisolone Sodium Succinate (Solu-Medrol) 40 mg IVPUSH Q6H [facility] Last Admin: 05/02/19 09:10 Dose: 40 mg Metoprolol Succinate (Toprol Xl) 150 mg PO DAILY [facility] Last Admin: 04/28/19 14:28 Dose: Not Given Mometasone Furoate/Formoterol Fumar (Dulera 200-5 Mcg) 2 puff IH BIDRT [facility] Last Admin: 04/28/19 20:17 Dose: 2 puff Mometasone Furoate/Formoterol Fumar (Dulera 200-5 Mcg) 2 puff IH BID [facility] Oseltamivir Phosphate (Tamiflu) 30 mg PO BID [facility] Last Admin: 05/04/19 21:45 Dose: 30 mg Theophylline Sr 300 (Mg Pt's Own Med) 0 each PO BID [facility] Last Admin: 04/27/19 20:17 Dose: Not Given Anoro Ellipta ( Umeclidinium Brm/Vilanterol Tr 1 Puff ) 0 each INH DAILY [facility] Potassium Chloride (Klor-Con M20) 40 meq PO ONETIME ONE Stop: 05/03/19 17:34 Last Admin: 05/03/19 18:19 Dose: 40 meq - Exam Quality Assessment: Reports: Supplemental Oxygen HEENT: Reports: Pupils Equal Neck: Reports: Supple Lungs: Reports: Normal Respiratory Effort, Wheezing Cardiovascular: Reports: Regular Rate, Regular Rhythm GI/Abdominal Exam: Normal Bowel Sounds, Soft, Non-Tender, No Distention Extremities: Normal Inspection, No Pedal Edema Skin: Reports: Warm Psy/Mental Status: Reports: Alert, Normal Affect, Normal Mood
[2019-05-05] MEDS: Budesonide 0.5 MG/2 ML Neb Susp NEB SCH (09:50)
[2019-05-05] MEDS: Losartan 25 MG Tab PO SCH (17:30)
[2019-05-05 17:31] VITALS: BP 136/51; PULSE 84
== END 2019-05-05 18:38 | DRG 193 ==
LOC: JD.ED 05:20 → JD.MS 09:09 → OBSVTOIN 10:51
PROVIDERS: ADMIT Internal Medicine; ATTEND Internal Medicine
DX: J18.9 Pneumonia, unspecified organism (principal); I50.33 Acute on chronic diastolic (congestive) heart failure; R09.02 Hypoxemia; J44.0 Chronic obstructive pulmonary disease with (acute) lower respiratory infection; E87.1 Hypo-osmolality and hyponatremia; N17.9 Acute kidney failure, unspecified; I50.9 Heart failure, unspecified; I13.0 Hypertensive heart and chronic kidney disease with heart failure and stage 1 through stage 4 chronic kidney disease, or unspecified chronic kidney disease; J44.1 Chronic obstructive pulmonary disease with (acute) exacerbation; Z66 Do not resuscitate; I25.10 Atherosclerotic heart disease of native coronary artery without angina pectoris; E78.00 Pure hypercholesterolemia, unspecified; I73.9 Peripheral vascular disease, unspecified; E11.22 Type 2 diabetes mellitus with diabetic chronic kidney disease; N18.9 Chronic kidney disease, unspecified; E66.9 Obesity, unspecified; E11.42 Type 2 diabetes mellitus with diabetic polyneuropathy; G47.33 Obstructive sleep apnea (adult) (pediatric); M10.9 Gout, unspecified; E78.5 Hyperlipidemia, unspecified; G89.29 Other chronic pain; M54.5 Low back pain; I87.2 Venous insufficiency (chronic) (peripheral); I27.20 Pulmonary hypertension, unspecified; Z96.653 Presence of artificial knee joint, bilateral; N40.0 Benign prostatic hyperplasia without lower urinary tract symptoms; E83.42 Hypomagnesemia; Z79.899 Other long term (current) drug therapy; Z79.84 Long term (current) use of oral hypoglycemic drugs; Z79.82 Long term (current) use of aspirin; Z79.52 Long term (current) use of systemic steroids; Z86.010 Personal history of colon polyps; Z98.41 Cataract extraction status, right eye; Z98.42 Cataract extraction status, left eye; Z95.2 Presence of prosthetic heart valve; Z90.49 Acquired absence of other specified parts of digestive tract; Z87.891 Personal history of nicotine dependence; Z98.890 Other specified postprocedural states; Z68.35 Body mass index [BMI] 35.0-35.9, adult
CPT/HCPCS: 36415; 36600; 71046; 80053; 82803; 83036; 83605; 83880; 84484; 85007; 85027; 85379; 87040 ×2; 87804 ×2; 93005; 94640; 96365; 96367; 96375; 99285; J0456; J0696; J1940; J7030; J7050; 71250; 71250-26; 80048; 82947; 82962; 83735; 84100; 84145; 85025; 86612; 86641; 86698; 86738; 87070; 87077; 87205; 87385; 87486; 87556; 87581; 87632; 87798; 87899; 87999; 93010; 93306; 94664; 94667; 94668; 94761; 97110-GP; 97116-GP; 97162-GP; 97165-GO; A9270-GY; J1650; J1815-GY; J2920; J2930; J3475; J7620-GY

== ENCOUNTER 2020-07-11 09:57 | Day surgery (SDC) | payer MEDICARE, BC ==
[~2020-07-11 09:57] MED LIST: Lactated Ringers 1,000 ML IV SCH; Lidocaine 1%/Sod Bicarbonate in NS 8.4% 1 ML Syringe IDERM PRN; Sodium Chloride 0.9% 10 ML Syringe FLUSH PRN
[2020-07-11] MEDS ORDERED: Albuterol 0.083% 2.5 MG/3 ML Neb Soln NEB SCH (10:00)
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
[2020-07-11] MEDS ORDERED: Propofol 200 MG/20 ML SDV ONE ×3 (11:52→12:47)
[2020-07-11] MEDS ORDERED: Lidocaine 1% 4 ML ONE (11:52)
[2020-07-11] MEDS ORDERED: Metoprolol Tartrate 5 MG/5 ML SDV ONE (12:38)
[2020-07-11] MEDS ORDERED: Lactated Ringers 1,000 ML ONE (12:54)
--- NOTE | 2020-07-11 13:10 | PCM48HPAN ---
Post Anesthesia Note - EVALUATION WITHIN 48HRS OF ANESTHETIC Vital Signs in Normal Range: Yes Patient Participated in Evaluation: Yes Respiratory Function Stable: Yes Airway Patent: Yes Cardiovascular Function Stable: Yes Hydration Status Stable: Yes Pain Control Satisfactory: Yes Nausea and Vomiting Control Satisfactory: Yes Mental Status Recovered: Yes Vital Signs: Last Vital Signs Temp 36.1 C 07/11/20 10:00 Pulse 88 07/11/20 10:00 Resp 20 07/11/20 10:00 BP 205/79 H 07/11/20 10:00 Pulse Ox 94 L 07/11/20 10:56
[2020-07-11 13:35] VITALS: BP 152/72; PULSE 81
--- NOTE | 2020-07-11 14:21 | PCM.PRNOTE ---
- Free Text/Narrative Note: Operative Report Date of Surgery/Procedure: July 11, 2020 Operative Procedure: Colonoscopy to cecum with biopsy Pre Op Diagnosis: colorectal cancer screening Post-Op Diagnosis: same Surgeon: Edwige Valencia MD Anesthesia Technique: MAC Anesthesia Provider: Jenny Bass CRNA IV Fluid Replacement, Intraop: 1000cc Output, Urine Amount: 0cc EBL : 0cc Findings: 1. Diverticulosis 2. Cecal polyp x2 3. Hepatic flexure polyp 4. Transverse colon polypx2 5. Splenic flexure polyp 6. Rectal polyp Specimens: 1. Cecal polyp 2. Hepatic flexure polyp 3. Transverse colon polypx2 4. Splenic flexure polyp 5. Rectal polyp Indication: The patient is a 80 year-old gentleman who presented to the outpatient clinic requesting colorectal cancer screening. The patient has a history of colonoscopy last done 10 years ago. Discussed the procedure of a screening colonoscopy including the polypectomy and biopsy. Risks of bleeding and perforation were discussed, the patient understood and wished to proceed. Written and consent was obtained Description of the procedure: The patient was brought to the endoscopy suite and placed in the left lateral decubitus position. Appropriate monitors were applied. The patient was given MAC anesthesia. An anorectal examination was performed, revealing no significant external abnormality. The scope was placed into the rectum and advanced to cecum with minimal difficulty requiring external abdominal pressure. The patients cecum was entered, and the ileocecal valve and appendiceal orifice were identified and normal. At this point, the scope was withdrawn, paying careful attention to the mucosa. The patient had good bowel prep, allowing for visualization of 85-90% of the mucosa after washing and suctioning. A 1.3cm semipedunculated polyp was noted in the cecum. This was removed with a combination of hot snare and jumbo cold biopsy forceps. An additional 1.8 cm semipedunculated and irregular polyp was noted in the cecum close to the first polyp. Multiple attempts were made to snare this polyp. Due to the polyp's location behind a fold, the polyp could not be removed. The scope was withdrawn noting a hepatic flexure polyp measuring approximately 2 to 3 mm and was removed using a jumbo cold biopsy forceps. Two transverse colon polyps were noted measuring 3 to 4 mm, and were removed using a jumbo cold biopsy forceps. A 4 mm splenic flexure polyp and an additional 4 mm flat rectal polyp were also noted and removed using a jumbo cold biopsy forceps. In the rectum, the scope was retroflexed and no abnormalities were noted, except for some hemorrhoidal tissue. The scope was placed back in the lumen and the excess air was aspirated. The patient tolerated the procedure well. Complications: none apparent Condition: Good, transported to PACU in stable condition Edwige Valencia MD General Surgery
--- NOTE | 2020-07-11 14:23 | PCM.OPNOTE ---
- General Post-Op/Procedure Note Date of Surgery/Procedure: 07/11/20 Operative Procedure(s): Colonoscopy Findings: 1. Diverticulosis 2. Cecal polyp x2 3. Hepatic flexure polyp 4. Transverse colon polypx2 5. Splenic flexure polyp 6. Rectal polyp Pre Op Diagnosis: Screening for colon cancer Post-Op Diagnosis: same Anesthesia Technique: MOLLY Primary Surgeon: Edwige Valencia Secondary Surgeon: Jenny Bass Pathology: 1. Cecal polyp 2. Hepatic flexure polyp 3. Transverse colon polypx2 4. Splenic flexure polyp 5. Rectal polyp Fluid Replacement, Intraop: 1,000 Output, Urine Amount: 0 EBL in mLs: 0 Complications: none apparent Condition: Good Free Text/Narrative:: Intake & Output 07/10/20 07/11/20 07/11/20 22:59 06:59 14:59 Intake Total 50 Balance 50
== END 2020-07-11 13:45 | disposition home or self-care (01) ==
LOC: JD.SDS 09:57
PROVIDERS: ATTEND Surgery
DX: Z12.11 Encounter for screening for malignant neoplasm of colon (principal); K57.30 Diverticulosis of large intestine without perforation or abscess without bleeding; D12.0 Benign neoplasm of cecum; D12.3 Benign neoplasm of transverse colon; K62.1 Rectal polyp; E66.9 Obesity, unspecified; N40.0 Benign prostatic hyperplasia without lower urinary tract symptoms; I25.10 Atherosclerotic heart disease of native coronary artery without angina pectoris; E78.00 Pure hypercholesterolemia, unspecified; E11.51 Type 2 diabetes mellitus with diabetic peripheral angiopathy without gangrene; J44.9 Chronic obstructive pulmonary disease, unspecified; E11.22 Type 2 diabetes mellitus with diabetic chronic kidney disease; N18.9 Chronic kidney disease, unspecified; Z98.890 Other specified postprocedural states; Z79.899 Other long term (current) drug therapy; Z79.84 Long term (current) use of oral hypoglycemic drugs; Z88.8 Allergy status to other drugs, medicaments and biological substances; Z87.891 Personal history of nicotine dependence; Z79.82 Long term (current) use of aspirin; Z68.34 Body mass index [BMI] 34.0-34.9, adult
CPT/HCPCS: 45380; 45385; 82962; 94640; J2001; J2704; J3490; J7120; 00812

== ENCOUNTER 2020-11-14 07:36 | Day surgery (SDC) | payer MEDICARE, BC ==
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
[2020-11-14] MEDS ORDERED: Propofol 200 MG/20 ML SDV ONE ×3 (08:53→09:57)
[2020-11-14] MEDS ORDERED: Lidocaine 1% 4 ML ONE (08:53)
--- NOTE | 2020-11-14 10:38 | PCM48HPAN ---
Post Anesthesia Note - EVALUATION WITHIN 48HRS OF ANESTHETIC Vital Signs in Normal Range: Yes Patient Participated in Evaluation: Yes Respiratory Function Stable: Yes Airway Patent: Yes Cardiovascular Function Stable: Yes Hydration Status Stable: Yes Pain Control Satisfactory: Yes Nausea and Vomiting Control Satisfactory: Yes Mental Status Recovered: Yes Vital Signs: Last Vital Signs Temp 36.3 C 11/14/20 07:45 Pulse 87 11/14/20 07:45 Resp 20 11/14/20 07:45 BP 141/64 H 11/14/20 07:45 Pulse Ox 92 L 11/14/20 07:45
--- NOTE | 2020-11-14 10:52 | PCM.OPNOTE ---
- General Post-Op/Procedure Note Date of Surgery/Procedure: 11/14/20 Operative Procedure(s): EGD and colonoscopy Findings: 1. Bile reflux 2. Gastric ulcers 3. Gastric polyps 4. Irregular GE junction 5. Cecal polyp x2 6. Diverticulosis 7. Internal hemorrhoids Pre Op Diagnosis: Epigastric pain, anemia, incomplete removal of colon polyp Post-Op Diagnosis: same Anesthesia Technique: MAC Primary Surgeon: Edwige Valencia Anesthesia Provider: Kendra Cook Pathology: 1. Gastric antrum 2. Gastric polyps x2 3. Z-line biopsies 4. Cecal polyp x2 EBL in mLs: 0 Complications: none apparent Condition: Good
--- NOTE | 2020-11-14 11:00 | PCM.PRNOTE ---
- Free Text/Narrative Note: Operative Report Date of Procedure: November 14, 2020 Pre Op Diagnosis: epigastric pain, anemia, incompletely removed colon polyp Post-Op Diagnosis: same Operative Procedures: 1. EGD with biopsy 2. Colonoscopy to the cecum Primary Surgeon: Edwige Valencia MD Anesthesia Provider: Kendra Cook CRNA Anesthesia Technique: MAC IV Fluid Replacement, Intraop: Seen anesthesia record Output, Urine Amount: 0cc EBL in mLs: cc Findings: 1. Bile reflux 2. Gastric ulcers 3. Gastric polyps 4. Irregular GE junction 5. Cecal polyp x2 6. Diverticulosis 7. Internal hemorrhoids Specimens: 1. Gastric antrum 2. Gastric polyps x2 3. Z-line biopsies 4. Cecal polyp x2 Drain/Tubes: None Indication: The patient is a 80-year-old gentleman who presented to the clinic with anemia, epigastric pain and history of incompletely removed polyp. The patient was consented for a diagnostic EGD and therapeutic colonoscopy. Risks of bleeding, and perforation were discussed, and the patient agreed to the risks and wished to proceed. Description of the procedure: The patient was taken back to the endoscopy suite, and placed in the left lateral decubitus position. A bite block was placed. The patient was sedated with MAC anesthesia. The Olympus video endoscope was inserted into the oropharynx and guided under direct vision into the esophagus, stomach, and duodenum. The duodenal bulb and second portion of the duodenum were unremarkable. The gastric antrum was inspected and cold biopsy forceps were used to take tissue samples for H. pylori. There were findings of erythema consistent with gastritis, The scope was withdrawn to the stomach and retroflexed. There was increased bilious fluid in the body of the stomach. There were two shallow ulcers on the body of the stomach. The scope was withdrawn to the esophagus. Irregular Z-line changes were noted and biopsies were taken in four quadrants with a cold biopsy forceps. The endoscope was then withdrawn. Next, anorectal examination was performed. No lesions, masses or hemorrhoids were noted externally or on palpation. The scope was placed into the rectum and advanced to cecum. Upon reaching the cecum, and the patients cecum was entered. There was moderate tortuosity of the colon. The ileocecal valve was well visualized and the appendiceal orifice identified. At this point, the scope was slowly withdrawn, paying attention to the mucosa. The patient had good bowel prep. Scar was noted in the cecum, and a biopsy was taken with a jumbo cold biopsy forceps. A 12mm semi-sessile polyp was found in the colon an removed with a jumbo cold biopsy forceps. Significant diverticulosis was found in the descending and sigmoid colon. In the rectum, scope was retroflexed and some significant hemorrhoidal tissue was noted. The scope was placed back in the lumen and excess air was aspirated. The scope was removed. The patient tolerated the procedure very well. Complications: None apparent Condition: The patient was transported to PACU in stable condition. Edwige Valencia MD General Surgery
[2020-11-14 12:25] VITALS: BP 134/65; PULSE 57
== END 2020-11-14 12:05 | disposition home or self-care (01) ==
LOC: JD.SDS 07:36
PROVIDERS: ATTEND Surgery
DX: K29.50 Unspecified chronic gastritis without bleeding (principal); K31.7 Polyp of stomach and duodenum; K20.90 Esophagitis, unspecified without bleeding; D12.0 Benign neoplasm of cecum; K22.8 Other specified diseases of esophagus; K57.30 Diverticulosis of large intestine without perforation or abscess without bleeding; K64.9 Unspecified hemorrhoids; D64.9 Anemia, unspecified; I11.0 Hypertensive heart disease with heart failure; I50.32 Chronic diastolic (congestive) heart failure; E78.2 Mixed hyperlipidemia; E66.9 Obesity, unspecified; J44.9 Chronic obstructive pulmonary disease, unspecified; Z86.73 Personal history of transient ischemic attack (TIA), and cerebral infarction without residual deficits; G47.30 Sleep apnea, unspecified; E11.9 Type 2 diabetes mellitus without complications; Z79.82 Long term (current) use of aspirin; Z79.899 Other long term (current) drug therapy; Z88.8 Allergy status to other drugs, medicaments and biological substances; Z87.891 Personal history of nicotine dependence; Z86.010 Personal history of colon polyps
CPT/HCPCS: 43239; 45380; J2704; J7120; 00813; 88305; 88342

== ENCOUNTER 2021-04-15 04:47 | Emergency (ER) | payer MEDICARE, BC ==
[2021-04-15] MEDS ORDERED: Sodium Chloride 0.9% 10 ML Syringe FLUSH PRN (05:11)
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
[2021-04-15] MEDS: Nitroglycerin 0.4 MG Tab.SL SL PRN ×2 (05:18→05:28)
[2021-04-15] MEDS ORDERED: HYDROmorphone 0.5 MG/0.5 ML Syringe IVPUSH ONE (05:29)
[2021-04-15 06:18] VITALS: BP 182/78; PULSE 65
--- NOTE | 2021-04-15 07:39 | CR ---
Chest: Portable view of the chest was obtained. Comparison: Prior chest CT study of 05/03/19 and chest x-ray of 05/01/19. Heart size and mediastinum are normal. Prior sternotomy is noted. Lungs are clear with no acute parenchymal change. Bony structures are within normal limits for the patient's age. Impression: 1. Nothing acute is appreciated on portable chest x-ray. Diagnostic code #2
== END 2021-04-15 06:53 | disposition home or self-care (01) ==
LOC: JD.ED 04:47
DX: R07.89 Other chest pain (principal); I25.10 Atherosclerotic heart disease of native coronary artery without angina pectoris; I12.9 Hypertensive chronic kidney disease with stage 1 through stage 4 chronic kidney disease, or unspecified chronic kidney disease; E11.22 Type 2 diabetes mellitus with diabetic chronic kidney disease; N18.9 Chronic kidney disease, unspecified; J44.9 Chronic obstructive pulmonary disease, unspecified; N40.0 Benign prostatic hyperplasia without lower urinary tract symptoms; M19.90 Unspecified osteoarthritis, unspecified site; E66.9 Obesity, unspecified; Z88.8 Allergy status to other drugs, medicaments and biological substances; Z79.84 Long term (current) use of oral hypoglycemic drugs; Z79.82 Long term (current) use of aspirin; Z79.899 Other long term (current) drug therapy; Z20.822 Contact with and (suspected) exposure to COVID-19
CPT/HCPCS: 36415; 71045; 80053; 84484; 85025; 93005; 96374; 99285; A9270; J1170; U0002

== ENCOUNTER 2022-03-17 08:35 | Emergency (ER) | payer MEDICARE, BC ==
[2022-03-17] MEDS ORDERED: Metoclopramide 10 MG/2 ML SDV IVPUSH ONE (08:48)
[2022-03-17] MEDS ORDERED: Nitroglycerin/D5W 25 MG/250 ML BOTTLE IV SCH (09:00)
[2022-03-17] MEDS ORDERED: Sodium Chloride 0.9% 1,000 ML IV SCH (09:00)
[2022-03-17] MEDS ORDERED: Furosemide 40 MG/4 ML VIAL IVPUSH ONE (09:43)
[2022-03-17] MEDS ORDERED: diphenhydrAMINE 50 MG/ML SDV IVPUSH ONE (10:16)
[2022-03-17] MEDS ORDERED: cefTRIAXone 2 GM in Sodium Chloride 0.9% 100 ML IV ONE (10:17)
[2022-03-17 10:32] LABS: ESTIMATED GFR 76 mL/min (>60)
[2022-03-17 13:09] VITALS: BP 159/73; PULSE 85
== END 2022-03-17 13:07 | disposition home or self-care (01) ==
LOC: JD.ED 08:35
DX: U07.1 COVID-19 (principal); J12.82 Pneumonia due to coronavirus disease 2019; I50.33 Acute on chronic diastolic (congestive) heart failure; J44.1 Chronic obstructive pulmonary disease with (acute) exacerbation; E11.9 Type 2 diabetes mellitus without complications; E66.9 Obesity, unspecified; Z88.8 Allergy status to other drugs, medicaments and biological substances; Z79.899 Other long term (current) drug therapy; Z79.84 Long term (current) use of oral hypoglycemic drugs; Z90.49 Acquired absence of other specified parts of digestive tract
CPT/HCPCS: 36415; 71045; 80053; 82553; 83605; 83735; 83880; 84484; 85025; 85610; 85730; 86140; 93005; 96365; 96366; 96368; 96375; 99285; J0696; J1200; J1940; J2765; J3490; J7030; 93010; 99284

== ENCOUNTER 2022-10-31 00:31 | Emergency (ER) | payer MEDICARE, BC ==
[2022-10-31] MEDS ORDERED: Aspirin 81 MG Tab.Chew PO ONE (01:08)
[2022-10-31 04:34] VITALS: BP 113/58; PULSE 72
== END 2022-10-31 04:32 | disposition home or self-care (01) ==
LOC: JD.ED 00:31
DX: R07.2 Precordial pain (principal); I12.9 Hypertensive chronic kidney disease with stage 1 through stage 4 chronic kidney disease, or unspecified chronic kidney disease; E11.22 Type 2 diabetes mellitus with diabetic chronic kidney disease; N18.9 Chronic kidney disease, unspecified; J44.9 Chronic obstructive pulmonary disease, unspecified; I25.10 Atherosclerotic heart disease of native coronary artery without angina pectoris; E78.00 Pure hypercholesterolemia, unspecified; I25.2 Old myocardial infarction; N40.0 Benign prostatic hyperplasia without lower urinary tract symptoms; M19.90 Unspecified osteoarthritis, unspecified site; E66.9 Obesity, unspecified; Z68.31 Body mass index [BMI] 31.0-31.9, adult; Z79.01 Long term (current) use of anticoagulants; Z88.8 Allergy status to other drugs, medicaments and biological substances; Z95.1 Presence of aortocoronary bypass graft
CPT/HCPCS: 36415; 71045; 80053; 84484; 85025; 85610; 85730; 93005; 99285; A9270; 93010; 99283

== ENCOUNTER 2022-12-29 14:56 | Emergency (ER) | payer MEDICARE, BC ==
[2022-12-29] MEDS ORDERED: Sodium Chloride 0.9% 10 ML Syringe FLUSH PRN (15:18)
[2022-12-29 15:40] LABS: HEMOGLOBIN 8.2 gm/dl (13.7-17.5); MEAN CORPUSCULAR HEMOGLOBIN 30.4 pg (25.7-32.2); MEAN CORPUSCULAR HGB CONC 30.4 g/dl (32.2-35.5); MEAN PLATELET VOLUME 9.8 fl (9.4-12.3); PLATELET COUNT,PLT 236 K/mm3 (163-337); WHITE BLOOD CELL COUNT,WBC 7.91 K/mm3 (4.23-9.07)
[2022-12-29 15:56] LABS: A/G RATIO 0.7 (1-2); ANION GAP 10.5 (5-15); BILIRUBIN TOTAL 0.4 mg/dL (0.2-1.0); BUN/CREATININE RATIO 19.1 (14-18); CALCIUM 8.4 mg/dL (8.5-10.1); CREATININE 2.2 mg/dL (0.7-1.3); EST CRCL DRUG DOSING (CG) 25.04 mL/min; POTASSIUM,K 4.5 mEq/L (3.5-5.1); PROTEIN TOTAL,TP 7.2 g/dl (6.4-8.2)
[2022-12-29] MEDS ORDERED: Bumetanide 1 MG/4 ML MDV IVPUSH ONE (16:07)
[2022-12-29 16:12] LABS: ANISOCYTOSIS 2+ MODERATE; BAND PERCENT MAN 0 % (0-10); BASOPHILS PERCENT MAN 2 (0.2-1.2); EOSINOPHILS PERCENT MAN 8 % (0.8-7.0); HYPOCHROMASIA 2+ MODERATE; LYMPHOCYTES % ATYPICAL MANUAL 0 %; LYMPHOCYTES PERCENT MAN 15 % (20-40); MICROCYTOSIS 1+ SLIGHT; MONOCYTES PERCENT MAN 8 % (2-10); PLATELET COUNT ESTIMATE ADEQUATE
[2022-12-29 19:48] VITALS: BP 124/55; PULSE 75
== END 2022-12-29 19:30 | disposition home or self-care (01) ==
LOC: JD.ED 14:56
DX: I13.0 Hypertensive heart and chronic kidney disease with heart failure and stage 1 through stage 4 chronic kidney disease, or unspecified chronic kidney disease (principal); E11.22 Type 2 diabetes mellitus with diabetic chronic kidney disease; N18.9 Chronic kidney disease, unspecified; I50.30 Unspecified diastolic (congestive) heart failure; J44.9 Chronic obstructive pulmonary disease, unspecified; M19.90 Unspecified osteoarthritis, unspecified site; E11.42 Type 2 diabetes mellitus with diabetic polyneuropathy; E66.9 Obesity, unspecified; Z68.33 Body mass index [BMI] 33.0-33.9, adult; Z88.8 Allergy status to other drugs, medicaments and biological substances; Z79.899 Other long term (current) drug therapy; Z79.82 Long term (current) use of aspirin; Z79.84 Long term (current) use of oral hypoglycemic drugs
CPT/HCPCS: 36415; 71045; 80053; 83880; 84484; 85007; 85027; 93005; 96374; 99285; J3490; 93010; 99284

== ENCOUNTER 2023-01-07 10:01 | Emergency (ER) | payer MEDICARE, BC ==
[2023-01-07] MEDS ORDERED: Bumetanide 1 MG/4 ML MDV IVPUSH ONE (10:29)
[2023-01-07] MEDS ORDERED: Sodium Chloride 0.9% 10 ML Syringe FLUSH PRN (10:30)
[2023-01-07 10:59] LABS: BASOPHILS ABSOLUTE AUTO 0.06 K/mm3 (0.01-0.08); BASOPHILS PERCENT AUTO 0.8 % (0.1-1.2); EOSINOPHILS ABSOLUTE AUTO 0.43 K/mm3 (0.04-0.54); EOSINOPHILS PERCENT AUTO 5.8 (0.8-7.0); HEMATOCRIT 25.3 % (40.1-51.0); HEMOGLOBIN 7.7 gm/dl (13.7-17.5); IMMATURE GRAN ABSOLUTE AUTO 0.02 K/mm3 (0.00-0.10); IMMATURE GRAN PERCENT AUTO 0.3 % (<=1.0); LYMPHOCYTES ABSOLUTE AUTO 0.93 K/mm3 (1.32-3.57); LYMPHOCYTES PERCENT AUTO 12.5 % (21.8-53.1); MEAN CORPUSCULAR HEMOGLOBIN 30.6 pg (25.7-32.2); MEAN CORPUSCULAR HGB CONC 30.4 g/dl (32.2-35.5); MEAN CORPUSCULAR VOLUME 100.4 fl (79.0-92.2); MEAN PLATELET VOLUME 10.1 fl (9.4-12.3); MONOCYTES ABSOLUTE AUTO 0.78 K/mm3 (0.30-0.82); MONOCYTES PERCENT AUTO 10.5 % (5.3-12.2); NEUTROPHILS ABSOLUTE AUTO 5.21 K/mm3 (1.78-5.38); NEUTROPHILS PERCENT AUTO 70.1 % (34.0-67.9); PLATELET COUNT,PLT 218 K/mm3 (163-337); RED BLOOD CELL COUNT 2.52 M/mm3 (4.63-6.08); WHITE BLOOD CELL COUNT,WBC 7.43 K/mm3 (4.23-9.07)
[2023-01-07 11:15] LABS: INR 1.08; PROTHROMBIN TIME 11.5 SECONDS (9.7-12.0)
[2023-01-07 11:16] LABS: PTT,PARTIAL THROMBOPLSTIN TIME 30.2 SECONDS (21.7-31.4)
[2023-01-07 11:32] LABS: A/G RATIO 0.8 (1-2); ANION GAP 11.8 (5-15); BILIRUBIN TOTAL 0.3 mg/dL (0.2-1.0); BUN/CREATININE RATIO 21.3 (14-18); C-REACTIVE PROTEIN 1.1 mg/dL (<1.0); CALCIUM 8.5 mg/dL (8.5-10.1); CKMB 2.2 ng/ml (0-3.6); CREATININE 2.4 mg/dL (0.7-1.3); EST CRCL DRUG DOSING (CG) 22.15 mL/min; MAGNESIUM 2.5 mg/dL (1.8-2.4); POTASSIUM,K 4.8 mEq/L (3.5-5.1)
[2023-01-07] MEDS ORDERED: Furosemide 40 MG/4 ML VIAL IVPUSH ONE (12:26)
[2023-01-07 13:52] VITALS: BP 129/66; PULSE 69
== END 2023-01-07 13:24 | disposition home or self-care (01) ==
LOC: JD.ED 10:01
DX: I13.0 Hypertensive heart and chronic kidney disease with heart failure and stage 1 through stage 4 chronic kidney disease, or unspecified chronic kidney disease (principal); E11.22 Type 2 diabetes mellitus with diabetic chronic kidney disease; N18.9 Chronic kidney disease, unspecified; I50.32 Chronic diastolic (congestive) heart failure; I25.810 Atherosclerosis of coronary artery bypass graft(s) without angina pectoris; E78.00 Pure hypercholesterolemia, unspecified; I25.2 Old myocardial infarction; J44.9 Chronic obstructive pulmonary disease, unspecified; M19.90 Unspecified osteoarthritis, unspecified site; E11.42 Type 2 diabetes mellitus with diabetic polyneuropathy; E66.9 Obesity, unspecified; Z68.34 Body mass index [BMI] 34.0-34.9, adult; Z86.16 Personal history of COVID-19; Z79.899 Other long term (current) drug therapy; Z79.84 Long term (current) use of oral hypoglycemic drugs
CPT/HCPCS: 36415; 71045; 80053; 82553; 83735; 83880; 84484; 85025; 85610; 85730; 86140; 93005; 96374; 96375; 99285; J1940; J3490; 93010; 99284